=== PATIENT | female | born 1950 | race Caucasian/White ===

== ENCOUNTER 2022-01-11 15:05 | Inpatient (IN) | payer MEDICAID, MEDICARE ==
[~2022-01-11] VITALS: Ht 162.6 cm; Wt 58.0 kg
[2022-01-11] MEDS ORDERED: ACETAMINOPHEN 325 MG TAB PO ONE ×2 (15:30→15:57)
[2022-01-11 16:27] LABS: Basophils # (auto) 0 10 ^3/uL (0-0.2); Basophils % (auto) 0.3 % (0.0-2.0); Eosinophils # (auto) 0.1 10 ^3/uL (0-0.8); Eosinophils % (auto) 0.7 % (0.0-7.0); Hematocrit 38.5 % (36.0-46.0); Hemoglobin 13.1 g/dL (12.2-16.2); Lymphocytes # (auto) 1.1 10 ^3/uL (0.4-5.4); Lymphocytes % (auto) 11.2 % (10.0-50.0); Mean Corpuscular Hemoglobin 29.9 pg (28.0-32.0); Mean Corpuscular Hgb Conc. 34.1 g/dL (32.0-36.0); Mean Corpuscular Volume 87.9 fL (80.0-100.0); Monocytes # (auto) 0.5 10 ^3/uL (0-1.3); Monocytes % (auto) 5.1 % (0.0-12.0); Neutrophils # (auto) 8.2 10 ^3/uL (1.6-8.6); Neutrophils % (auto) 82.7 % (37.0-80.0); Red Blood Cells 4.38 10^6/uL (4.0-5.20); Red Cell Distribution Width 13.5 % (11.8-14.3); White Blood Cell 9.9 10^3/uL (4.4-10.8)
[2022-01-11 16:37] LABS: Albumin 3.6 g/dL (3.4-5.0); Calcium 9.1 mg/dL (8.5-10.1); Potassium 3.5 mmol/L (3.5-5.1)
[2022-01-11 16:40] LABS: BUN/Creatinine Ratio 17.6; Bilirubin, Total 0.3 mg/dL (0.2-1.0)
[2022-01-11] MEDS ORDERED: SODIUM CHLORIDE 0.9% 500 ML IV ONE (17:00)
[2022-01-11 17:17] LABS: INR 1.02 (0.9-1.15); Partial Thromboplastin Time 26.8 sec (23.6-33.0)
[2022-01-11] MEDS ORDERED: ONDANSETRON HCL 4 MG/2 ML VIAL IV ONE (21:30)
[2022-01-11] MEDS ORDERED: MORPHINE SULFATE 4 MG/ML SYR/VIAL IV ONE (21:30)
[2022-01-11] MEDS ORDERED: DEXTROSE (50%) 50ML SYRG IV PRN (22:00)
[2022-01-11] MEDS ORDERED: ONDANSETRON HCL 4 MG/2 ML VIAL IV PRN (22:00)
[2022-01-11] MEDS: ACCU-CHEK COMFORT CURVE STRIP VI SCH (22:00)
[2022-01-11] MEDS: SODIUM CHLOR 0.9% PF (SALINE LOCK) 10ML VIAL/SYR IV SCH (22:00)
[2022-01-11] MEDS ORDERED: DOCUSATE SOD 100 MG CAP PO PRN (22:00)
[2022-01-11] MEDS ORDERED: ACETAMINOPHEN 325 MG TAB PO PRN (22:00)
[2022-01-11] MEDS: InsuLIN REG 1unit/0.01ml Soln (100units/ml) SC SCH (22:55)
[2022-01-11] MEDS: ASCORBIC ACID 500 MG TAB PO SCH (23:00)
[2022-01-11] MEDS ORDERED: NITROGLYCERIN 0.4 MG SL TAB SL PRN (23:00)
[2022-01-11] MEDS ORDERED: MORPHINE SULFATE INJ 2 MG/ml SYRG IV PRN (23:00)
[2022-01-12 00:19] VITALS: BP 153/81
[2022-01-12] MEDS: HYDROcodone-ACET 5/325MG TAB PO PRN (00:57)
[2022-01-12] MEDS: hydrALAZINE HCL 20 MG/ML VL IV PRN (00:57)
[2022-01-12 04:47] VITALS: BP 114/62
[2022-01-12 05:32] LABS: Basophils # (auto) 0 10 ^3/uL (0-0.2); Basophils % (auto) 0.4 % (0.0-2.0); Eosinophils # (auto) 0.2 10 ^3/uL (0-0.8); Eosinophils % (auto) 1.5 % (0.0-7.0); Hematocrit 37.9 % (36.0-46.0); Hemoglobin 12.4 g/dL (12.2-16.2); Lymphocytes # (auto) 1.7 10 ^3/uL (0.4-5.4); Lymphocytes % (auto) 15.5 % (10.0-50.0); Mean Corpuscular Hemoglobin 29.3 pg (28.0-32.0); Mean Corpuscular Hgb Conc. 32.7 g/dL (32.0-36.0); Mean Corpuscular Volume 89.4 fL (80.0-100.0); Monocytes # (auto) 1.1 10 ^3/uL (0-1.3); Monocytes % (auto) 9.6 % (0.0-12.0); Red Blood Cells 4.24 10^6/uL (4.0-5.20); Red Cell Distribution Width 13.4 % (11.8-14.3)
[2022-01-12 05:49] LABS: Albumin 3.1 g/dL (3.4-5.0); Calcium 8.5 mg/dL (8.5-10.1); Potassium 3.4 mmol/L (3.5-5.1)
[2022-01-12 05:55] LABS: BUN/Creatinine Ratio 16.7; Bilirubin, Total 0.3 mg/dL (0.2-1.0); Total Protein 6.1 g/dL (6.4-8.2)
[2022-01-12] MEDS: ACCU-CHEK COMFORT CURVE STRIP VI SCH ×4 (06:36→21:43)
[2022-01-12] MEDS: InsuLIN REG 1unit/0.01ml Soln (100units/ml) SC SCH ×4 (06:37→22:09)
[2022-01-12] MEDS: MORPHINE SULFATE INJ 2 MG/ml SYRG IV PRN ×3 (06:39→17:49)
[2022-01-12] MEDS ORDERED: POTASSIUM CHL 20MEQ/100ML 100 ML IV ONE (07:00)
[2022-01-12 08:52] VITALS: BP 126/61
[2022-01-12] MEDS ORDERED: FAMOTIDINE (10MG/ML) 2ML VL IV SCH (10:00)
[2022-01-12] MEDS: ASCORBIC ACID 500 MG TAB PO SCH ×2 (10:19→21:43)
[2022-01-12] MEDS: ZINC SULFATE 220mg CAP or TAB PO SCH (10:19)
[2022-01-12] MEDS: MULTIPLE VITAMIN TAB PO SCH (10:19)
[2022-01-12] MEDS: ENOXAPARIN SOD 40 MG/0.4 ML SYRINGE SC SCH (10:20)
[2022-01-12] MEDS ORDERED: PANTOPRAZOLE 40 MG/10 ML VIAL INJ IV ONE (12:15)
[2022-01-12 12:49] VITALS: BP 153/77
[2022-01-12 16:54] VITALS: BP 154/60
[2022-01-12] MEDS ORDERED: TOPI25TA84 PO (20:16)
[2022-01-12] MEDS ORDERED: METF-869 PO (20:16)
[2022-01-12] MEDS ORDERED: RIVA1CAP PO (20:16)
[2022-01-12] MEDS ORDERED: MEMA1TAB5 PO (20:16)
[2022-01-12] MEDS ORDERED: VENL-222 PO (20:16)
[2022-01-12] MEDS ORDERED: OMEP-260 PO (20:16)
[2022-01-12] MEDS: SODIUM CHLOR 0.9% PF (SALINE LOCK) 10ML VIAL/SYR IV SCH (21:41)
[2022-01-12 22:00] VITALS: BP 107/68
[2022-01-13 05:00] VITALS: BP 180/77
[2022-01-13] MEDS: SODIUM CHLOR 0.9% PF (SALINE LOCK) 10ML VIAL/SYR IV SCH ×3 (05:51→21:09)
[2022-01-13] MEDS: hydrALAZINE HCL 20 MG/ML VL IV PRN ×2 (05:51→21:49)
[2022-01-13] MEDS: ACCU-CHEK COMFORT CURVE STRIP VI SCH ×4 (05:56→21:09)
[2022-01-13] MEDS: InsuLIN REG 1unit/0.01ml Soln (100units/ml) SC SCH ×4 (05:57→21:12)
[2022-01-13] MEDS ORDERED: ceFAZolin 1GM/50ML 100 ML IV ONE (07:07)
[2022-01-13] MEDS ORDERED: BUPIVACAINE HCL 50 ML ONE (07:20)
[2022-01-13] MEDS ORDERED: MIDAZOLAM HCL 2MG/2ML 2ml VIAL (1mg/ml) ONE (07:27)
[2022-01-13] MEDS ORDERED: MEPERIDINE HCL (50 MG/ML) 1 ML VIAL ONE (07:27)
[2022-01-13] MEDS ORDERED: fentaNYL CITRATE 100 MCG/2 ML VL ONE (07:27)
[2022-01-13] MEDS ORDERED: ONDANSETRON HCL 4 MG/2 ML VIAL IV ONE (07:30)
[2022-01-13] MEDS ORDERED: DexAMETHasone SOD PHOS 10MG/1ML VIAL INJ ONE (08:28)
[2022-01-13] MEDS ORDERED: PROPOFOL 10 MG/ML 20 ML IV ONE (08:28)
[2022-01-13] MEDS: LABETALOL HCL 5 MG/ML 4ML SYRINGE IV ONE ×2 (08:30→08:50)
[2022-01-13] MEDS ORDERED: ONDANSETRON HCL 4 MG/2 ML VIAL IV PRN (09:15)
[2022-01-13] MEDS ORDERED: MORPHINE SULFATE 4 MG/ML SYR/VIAL IV PRN (09:15)
[2022-01-13] MEDS ORDERED: HYDROmorphone HCL 2 MG/ML VL/or syr IV PRN (09:15)
[2022-01-13] MEDS ORDERED: ACCU-CHEK COMFORT CURVE STRIP VI ONE (09:15)
[2022-01-13] MEDS ORDERED: ePHEDrine SULFATE 50 MG/ML AMP IV PRN (09:15)
[2022-01-13] MEDS ORDERED: LABETALOL HCL 5 MG/ML 4ML SYRINGE IV PRN ×2 (09:15→09:45)
[2022-01-13] MEDS ORDERED: MIDAZOLAM HCL 2MG/2ML 2ml VIAL (1mg/ml) IV PRN (09:15)
[2022-01-13] MEDS: ZINC SULFATE 220mg CAP or TAB PO SCH (10:00)
[2022-01-13] MEDS: RIVASTIGMINE 1.5 MG PO SCH ×2 (10:00→21:09)
[2022-01-13] MEDS: ASCORBIC ACID 500 MG TAB PO SCH ×2 (10:00→21:09)
[2022-01-13] MEDS: VENLAFAXINE 150 MG PO SCH (10:00)
[2022-01-13] MEDS: TOPIRAMATE 25 MG TAB PO SCH ×2 (10:00→21:09)
[2022-01-13] MEDS: MULTIPLE VITAMIN TAB PO SCH (10:00)
[2022-01-13] MEDS: MEMANTINE HCL 5 MG TAB PO SCH (10:00)
[2022-01-13] MEDS: PANTOPRAZOLE 40 MG/10 ML VIAL INJ IV SCH (11:59)
[2022-01-13] MEDS: ENOXAPARIN SOD 40 MG/0.4 ML SYRINGE SC SCH (11:59)
[2022-01-13] MEDS: ceFAZolin 1GM/50ML 50 ML IV SCH ×3 (12:26→23:47)
[2022-01-13 13:00] VITALS: BP 162/74
[2022-01-13 16:58] VITALS: BP 174/80
[2022-01-13] MEDS: MORPHINE SULFATE INJ 2 MG/ml SYRG IV PRN (17:50)
[2022-01-13 22:36] VITALS: BP 162/73
[2022-01-14 05:00] VITALS: BP 163/63
[2022-01-14] MEDS: SODIUM CHLOR 0.9% PF (SALINE LOCK) 10ML VIAL/SYR IV SCH ×3 (06:04→21:59)
[2022-01-14] MEDS: ACCU-CHEK COMFORT CURVE STRIP VI SCH ×4 (06:04→22:00)
[2022-01-14] MEDS: InsuLIN REG 1unit/0.01ml Soln (100units/ml) SC SCH ×4 (06:07→21:57)
[2022-01-14] MEDS: hydrALAZINE HCL 20 MG/ML VL IV PRN (06:10)
[2022-01-14 07:27] LABS: Basophils # (auto) 0 10 ^3/uL (0-0.2); Basophils % (auto) 0.2 % (0.0-2.0); Eosinophils # (auto) 0 10 ^3/uL (0-0.8); Eosinophils % (auto) 0.1 % (0.0-7.0); Hemoglobin 12.8 g/dL (12.2-16.2); Lymphocytes # (auto) 1.3 10 ^3/uL (0.4-5.4); Mean Corpuscular Hemoglobin 29.6 pg (28.0-32.0); Mean Corpuscular Hgb Conc. 33.8 g/dL (32.0-36.0); Mean Corpuscular Volume 87.6 fL (80.0-100.0); Monocytes # (auto) 1.2 10 ^3/uL (0-1.3); Monocytes % (auto) 8.7 % (0.0-12.0); Neutrophils # (auto) 11.8 10 ^3/uL (1.6-8.6); Red Blood Cells 4.34 10^6/uL (4.0-5.20); Red Cell Distribution Width 13.3 % (11.8-14.3)
[2022-01-14 07:54] LABS: White Blood Cell 14.4 10^3/uL (4.4-10.8)
[2022-01-14 09:00] VITALS: BP 139/63
[2022-01-14] MEDS: PANTOPRAZOLE 40 MG/10 ML VIAL INJ IV SCH (11:46)
[2022-01-14] MEDS: VENLAFAXINE 150 MG PO SCH (11:46)
[2022-01-14] MEDS: RIVASTIGMINE 1.5 MG PO SCH ×2 (11:46→21:58)
[2022-01-14] MEDS: TOPIRAMATE 25 MG TAB PO SCH ×2 (11:47→21:59)
[2022-01-14] MEDS: ZINC SULFATE 220mg CAP or TAB PO SCH (11:47)
[2022-01-14] MEDS: MEMANTINE HCL 5 MG TAB PO SCH (11:47)
[2022-01-14] MEDS: MULTIPLE VITAMIN TAB PO SCH (11:47)
[2022-01-14] MEDS: ENOXAPARIN SOD 40 MG/0.4 ML SYRINGE SC SCH (11:48)
[2022-01-14] MEDS: ASCORBIC ACID 500 MG TAB PO SCH ×2 (11:48→21:59)
[2022-01-14] MEDS: HYDROcodone-ACET 5/325MG TAB PO PRN ×2 (11:49→18:25)
[2022-01-14 13:12] VITALS: BP 152/88
[2022-01-14 17:00] VITALS: BP 179/62
[2022-01-14 22:00] VITALS: BP 136/72
[2022-01-15 05:00] VITALS: BP 127/71
[2022-01-15] MEDS: SODIUM CHLOR 0.9% PF (SALINE LOCK) 10ML VIAL/SYR IV SCH ×2 (06:26→16:04)
[2022-01-15] MEDS: ACCU-CHEK COMFORT CURVE STRIP VI SCH ×3 (06:27→18:08)
[2022-01-15] MEDS: InsuLIN REG 1unit/0.01ml Soln (100units/ml) SC SCH ×3 (06:29→17:00)
[2022-01-15 09:00] VITALS: BP 138/67
[2022-01-15] MEDS: VENLAFAXINE 150 MG PO SCH (09:20)
[2022-01-15] MEDS: RIVASTIGMINE 1.5 MG PO SCH (09:21)
[2022-01-15] MEDS: MULTIPLE VITAMIN TAB PO SCH (09:23)
[2022-01-15] MEDS: TOPIRAMATE 25 MG TAB PO SCH (09:23)
[2022-01-15] MEDS: ASCORBIC ACID 500 MG TAB PO SCH (09:24)
[2022-01-15] MEDS: MEMANTINE HCL 5 MG TAB PO SCH (09:24)
[2022-01-15] MEDS: ENOXAPARIN SOD 40 MG/0.4 ML SYRINGE SC SCH (09:24)
[2022-01-15] MEDS: PANTOPRAZOLE 40 MG/10 ML VIAL INJ IV SCH (09:24)
[2022-01-15] MEDS: ZINC SULFATE 220mg CAP or TAB PO SCH (09:24)
[2022-01-15 13:00] VITALS: BP 124/67
[2022-01-15 17:20] VITALS: BP 133/72
[2022-01-15 18:19] VITALS: BP 124/67
== END 2022-01-15 20:37 | disposition home health service (06) | DRG 512 ==
LOC: ER 15:05 → OVERFLOW 22:50 → CENTRAL 23:41
PROVIDERS: ADMIT Nurse Practitioner Family; ATTEND Internal Medicine
PROC: BP1 Imaging, Non-Axial Upper Bones, Fluoroscopy (ICD-10-PCS; 2022-01-13)
PROC: 0PSH04Z Reposition Right Radius with Internal Fixation Device, Open Approach (ICD-10-PCS; principal; 2022-01-13 07:26)
DX: S52.571A Other intraarticular fracture of lower end of right radius, initial encounter for closed fracture (principal); S09.90XA Unspecified injury of head, initial encounter; E87.6 Hypokalemia; F02.80 Dementia in other diseases classified elsewhere, unspecified severity, without behavioral disturbance, psychotic disturbance, mood disturbance, and anxiety; G30.9 Alzheimer's disease, unspecified; I10 Essential (primary) hypertension; K21.9 Gastro-esophageal reflux disease without esophagitis; F32.A Depression, unspecified; R29.6 Repeated falls; G20 Parkinson's disease; Z20.822 Contact with and (suspected) exposure to COVID-19; F41.9 Anxiety disorder, unspecified; F32.9 Major depressive disorder, single episode, unspecified; W18.39XA Other fall on same level, initial encounter; Y93.89 Activity, other specified; Z90.49 Acquired absence of other specified parts of digestive tract; Y92.098 Other place in other non-institutional residence as the place of occurrence of the external cause; Z79.84 Long term (current) use of oral hypoglycemic drugs; Z85.41 Personal history of malignant neoplasm of cervix uteri; Z91.81 History of falling; Y99.8 Other external cause status; E11.9 Type 2 diabetes mellitus without complications; Z79.4 Long term (current) use of insulin
CPT/HCPCS: 36415; 70450; 71045; 72125; 73100; 73110; 73200; 76000; 80053; 82962; 83036; 85025; 85610; 85730; 86850; 86900; 86901; 93005; 93306; 96361; 96374; 96375; 97110; 97116; 97163; 97530; C9113; G0378; J0690; J1100; J1815; J2250; J2405; J2704; J3480; J3490

== ENCOUNTER 2024-08-06 07:02 | Inpatient (IN) | payer OTHER ==
[~2024-08-06] VITALS: Ht 162.6 cm; Wt 46.6 kg
[~2024-08-06 07:02] MED LIST: MEMA1TAB5 PO; METF-869 PO; OMEP1CAP70 PO; RIVA1CAP PO; TOPI25TA84 PO; VENL-222 PO
--- NOTE | 2024-08-06 07:53 | ED.PDOC ---
Venturat. trauma (HPI) HPI Comments 74 y.o female with PMH of dementia was BIB spouse today s/p head trauma. Spouse reports around 0530 he head patient hit her head against night stand, noted to have dry blood on the top of her head. Patient arrives alert and oriented x 1, baseline is x 2 per spouse. Patient is bedbound most of the time. Spouse mentions that patient was diagnosed with PreDM, was on Metformin but recently taken off it by PCP, now presents with BG of 594 x 2 reads in triage. Patient has additional medical history of migraines and HDL with medication given by spouse. Chief Complaint: Fall Injury Time Seen by MD: 07:22 Primary Care Provider: АЛЕКСАНДР Reviewed notes: Nurses Notes, Medications, Allergies Allergies: Coded Allergies: NO KNOWN ALLERGIES (Unverified , 11/29/13) Home Meds Reported Medications Metformin Hydrochloride (Metformin Hydrochloride) 500 Mg Tab, 1 TAB PO BID 01/12/22 Omeprazole (Omeprazole Dr) 20 Mg Cap, 1 CAP PO DAILY 01/12/22 Topiramate (Topiramate) 25 Mg Tab, 2 TAB PO BID 01/12/22 Venlafaxine Hydrochloride (Venlafaxine Hydrochloride) 150 Mg Cap, 1 CAP PO DAILY 01/12/22 Memantine Hydrochloride (Memantine HCl) 10 Mg Tab, 1 TAB PO DAILY 01/12/22 Rivastigmine Tartrate (Rivastigmine Tartrate) 1.5 Mg Cap, 1 CAP PO BID 01/12/22 Information Source: Spouse Mode of Arrival: Wheelchair Severity: Moderate Timing: Hours Duration: Since onset Location of laceration: Head Mechanism: Other Associated signs and symtoms: Other Past Medical History PAST MEDICAL HISTORY: Dementia, Depression Surgical History: Cholecystectomy [employer] History: Denies all [employer] Hx Family History Family History: Reviewed,noncontributory to illness Social History Smoker: Non-Smoker Alcohol: Denies ETOH Use Drugs: Denies Drug Use Lives In: Home Integumetry: reports: laceration Unable to Obtain due to: Dementia Physical Exam General Appearance: Moderate Distress, Thin, Other (Altered level of consciousness patient with dementia) HEENT: Normal ENT Inspection, PERRL/EOMI Neck: Limited Range of Motion, Other (Patient holds her neck in flex lateral position) Respiratory: Chest Non-Tender, Lungs Clear, No Accessory Muscle Use, No Respiratory Distress, Normal Breath Sounds Cardiovascular: No Edema, No JVD, No Murmur, No Gallop, Normal Peripheral Pulses, Regular Rate/Rhythm Breast Exam: Deferred Gastrointestinal: No Organomegaly, Non Tender, No Pulsatile Mass, Normal Bowel Sounds, Soft Genitalia: Deferred Pelvic: Deferred Rectal: Deferred Extremities: Decreased range of motion, No pedal edema Neurologic: Depressed Affect, Disoriented, Motor Weakness, Speech Problem, Other (Patient with altered consciousness) Cerebellar Function: Unable to Test Reflexes: NOT DONE Skin: Dry, Normal Color, Warm, Other (Scalp abrasions) Peripheral Pulses: 1+ carotid (R), 1+ carotid (L) Lymphatic: No Adenopathy Was a procedure done? Was a procedure done?: No EKG EKG : Pulse Rate (adult): 104 [place]: RAD Cardiac Rhythm: NSR Block: RBBB Differential Diagnosis Multiple Trauma: Closed Head Injury, Fractures, Abrasions, Contusion, Hematoma, Other (Late stage dementia DKA dehydration altered level of consciousness CVA sepsis) Neck Injury: Cervical Muscle Spasm X-Ray, Labs, Meds, VS Vital Signs Date Time Temp Pulse Resp B/P (MAP) Pulse Ox O2 Delivery O2 Flow Rate FiO2 08/06/24 12:39 105 16 154/78 (103) 95 08/06/24 10:00 98.6 107 16 144/84 (104) 95 98.6 08/06/24 07:26 98.7 111 20 137/66 (89) 96 Lab Test 08/06/24 09:14 08/06/24 08:00 Range/Units Urine Color Light-yellow Yellow Urine Clarity Clear Clear Urine pH 5.0 5.0-9.0 Urine Specific [place] 1.032 1.001-1.035 Urine Protein Trace H Negative Urine Ketones 2+ H Negative Urine Blood Trace H Negative /uL Urine Nitrite Negative Negative Urine Bilirubin Negative Negative Urine Urobilinogen Normal Negative mg/dL Urine Leukocyte Esterase Negative Negative /uL Urine RBC 4 0 - 4 /hpf Urine WBC 2 0 - 5 /hpf Urine Squamous Epithelial Cells Few <5 /hpf Urine Bacteria Few H None Seen /hpf Urine Hyaline Casts Few 0 - 2 /lpf Urine Mucus Few None Seen Urine Glucose 4+ H Normal mg/dL White Blood Count 22.6 H 4.4-10.8 10^3/uL Red Blood Count 5.26 H 4.0-5.20 10^6/uL Hemoglobin 15.5 12.2-16.2 g/dL Hematocrit 50.0 H 36.0-46.0 % Mean Corpuscular Volume 95.1 80.0-100.0 fL Mean Corpuscular Hemoglobin 29.5 28.0-32.0 pg Mean Corpuscular Hemoglobin Concent 31.0 L 32.0-36.0 g/dL Red Cell Distribution Width 15.6 H 11.8-14.3 % Platelet Count 305 140-450 10^3/uL Mean Platelet Volume 11.3 H 6.9-10.8 fL Neutrophils (%) (Auto) 88.6 H 37.0-80.0 % Lymphocytes (%) (Auto) 6.7 L 10.0-50.0 % Monocytes (%) (Auto) 4.5 0.0-12.0 % Eosinophils (%) (Auto) 0.0 0.0-7.0 % Basophils (%) (Auto) 0.2 0.0-2.0 % Neutrophils # (Auto) 20.0 H 1.6-8.6 10 ^3/uL Lymphocytes # (Auto) 1.5 0.4-5.4 10 ^3/uL Monocytes # (Auto) 1.0 0-1.3 10 ^3/uL Eosinophils # (Auto) 0 0-0.8 10 ^3/uL Basophils # (Auto) 0 0-0.2 10 ^3/uL Nucleated Red Blood Cells 0.0 % Sodium Level 152 H 136-145 mmol/L Potassium Level 4.9 3.5-5.1 mmol/L Chloride Level 114 H 98-107 mmol/L Carbon Dioxide Level 16 L 20-31 mmol/L Anion Gap 22 H 5-15 Blood Urea Nitrogen 57 H 9-23 mg/dL Creatinine 2.13 H 0.550-1.02 mg/dL Glomerular Filtration Rate Calc 24 >90 mL/min BUN/Creatinine Ratio 26.8 H 10.0-20.0 Serum Glucose 780 *H 74-106 mg/dL Calcium Level 10.6 H 8.7-10.4 mg/dL Magnesium Level 2.6 1.6-2.6 mg/dL Total Bilirubin 0.4 0.2-1.0 mg/dL Aspartate Amino Transferase (AST) 1063 H 13-40 U/L Alanine Aminotransferase (ALT) 979 H 7-40 U/L Alkaline Phosphatase 187 H 46-116 U/L Troponin I High Sensitivity 31 </=34 ng/L Total Protein 7.2 5.7-8.2 g/dL Albumin 4.5 3.2-4.8 g/dL Current Medications Medications (Trade) Dose Ordered Sig/Dalton Route Start Time Stop Time Status Last Admin Sodium Chloride 1,000 ml @ 1,000 mls/hr Q1H ONCE IVB 08/06/24 07:45 08/06/24 08:44 DC 08/06/24 08:00 Insulin Human Regular (InsuLIN R) 10 units ONCE ONCE IV 08/06/24 12:30 08/06/24 12:34 DC 08/06/24 12:52 Sodium Chloride 1,000 ml @ 500 mls/hr Q2H IV 08/06/24 12:30 08/06/24 16:29 08/06/24 13:08 Insulin Human (Reg)/Sodium Chloride 100 ml @ 0.5 mls/hr Q24H IV 08/06/24 12:30 08/06/24 13:06 Insulin Glargine (Lantus) 15 units ONCE ONCE SC 08/06/24 12:30 08/06/24 12:34 DC 08/06/24 12:53 EXAM: CT HEAD WITHOUT CONTRAST INDICATION: fall TECHNIQUE: CT of the head without intravenous contrast. Coronal and sagittal reformatted images are submitted. Radiation Dose : 1. Head: CT Dose: CTDI volume is 51.53 mGy. Dose-length product is 723.18 mGy*cm COMPARISON: HEAD WITHOUT CONTRAST on DOS: 01/11/22 FINDINGS: There is no evidence of acute intracranial hemorrhage, extra-axial collection, mass effect, midline shift. There is ventriculomegaly. Age-appropriate volume loss. There are periventricular and subcortical hypodensities, nonspecific, but likely reflecting sequelae of chronic microvascular ischemic changes. The majano-white differentiation is intact. The mastoid air cells are clear. Opacification of the right frontal sinus. No depressed calvarial fracture. Left frontal scalp swelling. IMPRESSION: 1. No evidence of acute intracranial abnormality. 2. Left frontal scalp swelling. 3. Ventriculomegaly, which may be related to volume loss. A component of communicating hydrocephalus not excluded. : CT CERVICAL WITHOUT CONTRAST INDICATION: fall EXAM DATE: 08/06/2024 08:13 AM COMPARISON: CT HEAD WITHOUT CONTRAST on DOS: 08/06/24, CERVICAL WITHOUT CONTRAST on DOS: 01/11/22 TECHNIQUE: Multiple axial CT images of the cervical spine were obtained using bone algorithm. Sagittal and coronal reformatting was done. Bone and soft tissue windows were reviewed. Radiation Dose Information: CT Dose: CTDI volume is 8.9 mGy. Dose-length product is 183.06 mGy*cm FINDINGS: The cervical alignment is intact. No acute cervical spine fracture is identified. The vertebral body heights are intact. No suspicious osseous lesions are identified. Multilevel intervertebral disc space narrowing. No significant spinal stenosis. Multilevel neural foraminal stenosis. There is no prevertebral soft tissue swelling. Lung apices are clear. IMPRESSION: 1. No evidence of acute cervical spine fracture or traumatic malalignment. XY CHEST PORTABLE, HISTORY: aloc COMPARISON: CXRP on DOS: 01/12/22, CHEST PORTABLE on DOS: 01/12/22 CXRP on DOS: 01/12/22, CHEST PORTABLE on DOS: 01/12/22 TECHNICAL DATA: 1 view of the chest was obtained. FINDINGS: Lines and tubes: None Cardiomediastinal silhouette: normal Pulmonary vasculature: normal Lung expansion: normal Lung airspace: normal Lung interstitium: normal Pleura: normal Pneumothorax: no Bones: Unremarkable Other: no IMPRESSION: No acute intrathoracic abnormality. X-Ray, Labs, Meds, VS Comment Course in the emergency department eventful patient came in because of a fall and also she has end-stage dementia and generalized weakness Patient fell today and scalp abrasions AICD she needs CT head negative CT C-spine negative frontal scalp small hematoma Troponin 31 CBC 13675 with 88.6% neutrophils H&H 15 and 50 CMP shows some liver failure with a extremely elevated liver enzymes Urine pending Parnell catheter has been called Magnesium 2.6 Blood sugar 780 CO2 16 G FR 24 Patient will be admitted to ICU Time of 1ST Reevaluation: 07:48 Reevaluation 1ST: Unchanged Time of 2ND Reevaluation: 12:36 Reevaluation 2ND: Unchanged Patient Education/Counseling: Diagnosis, Treatment, Prognosis, Other Family Education/Counseling: Diagnosis, Treatment, Prognosis, Other ( at bed side ) Departure 1 Departure Time of Disposition: 12:41 Impression: Primary Impression: Fall at home Qualified Codes: W19.XXXA - Unspecified fall, initial encounter; Y92.009 - Unspecified place in unspecified non-institutional (private) residence as the place of occurrence of the external cause Additional Impressions: Scalp abrasion Qualified Codes: S00.01XA - Abrasion of scalp, initial encounter Late onset Alzheimer's dementia without behavioral disturbance DKA, type 2 Qualified Codes: E11.10 - Type 2 diabetes mellitus with ketoacidosis without coma Sepsis Hepatorenal failure Disposition: ADMITTED INPATIENT Admit to: ICU Condition: Critical Critical Care Note Critical Care Time?: Yes (45 min-critical care time only) Stability Stability form required: Yes Unstable for transfer: ICU, CCU, PCU, JOSE (Intensive VS monitoring), Requires medication (Requires Med for stabilization) Heart Score Heart Score: Heart Score Response (Comments) Value History Moderate Suspicious 1 EKG Repolarization Disturb 1 Age >65 2 Risk Factors >3 or Hx ASHD 2 Troponin Normal limit 0 Total 6 I personally scribed for GERALD DUNAWAY MD ([email or web address]) on 08/06/24 at 07:53. Electronically submitted by Jennifer Bobo ([employer] [place]). I personally scribed for GERALD DUNAWAY MD ([email or web address]) on 08/06/24 at 08:50. Electronically submitted by Jennifer Bobo ([employer] [place]). GERALD DUNAWAY MD Aug 06, 2024 07:53
[2024-08-06] MEDS: SODIUM CHLORIDE 0.9% 1,000 ML IVB ONE (08:00)
--- NOTE | 2024-08-06 08:37 | DVH ---
EXAM: CT HEAD WITHOUT CONTRAST INDICATION: fall TECHNIQUE: CT of the head without intravenous contrast. Coronal and sagittal reformatted images are submitted. Radiation Dose : 1. Head: CT Dose: CTDI volume is 51.53 mGy. Dose-length product is 723.18 mGy*cm The dose indicators for CT are the volume Computed Tomography (CT) Dose Index (CTDIvol) and the Dose Length Product (DLP), and are measured in units of mGy and mGy-cm, respectively. These indicators are not patient dose, but values generated from the CT scanner acquisition factors. The report includes radiation exposure data for exposures received during this examination. All CT scans at this medical facility are performed using dose modulation techniques as appropriate to a performed exam including the following: Automated exposure control was utilized; adjustment of the MA and/or KV according to patient size; and use of iterative reconstruction technique. COMPARISON: HEAD WITHOUT CONTRAST on DOS: 01/11/22 FINDINGS: There is no evidence of acute intracranial hemorrhage, extra-axial collection, mass effect, midline s hift. There is ventriculomegaly. Age-appropriate volume loss. There are periventricular and subcortical hypodensities, nonspecific, but likely reflecting sequelae of chronic microvascular ischemic changes. The majano-white differentiation is intact. The mastoid air cells are clear. Opacification of the right frontal sinus. No depressed calvarial fracture. Left frontal scalp swelling. IMPRESSION: 1. No evidence of acute intracranial abnormality. 2. Left frontal scalp swelling. 3. Ventriculomegaly, which may be related to volume loss. A component of communicating hydrocephalus not excluded.
[2024-08-06 08:39] LABS: Basophils # (auto) 0 10 ^3/uL (0-0.2); Basophils % (auto) 0.2 % (0.0-2.0); Eosinophils # (auto) 0 10 ^3/uL (0-0.8); Hemoglobin 15.5 g/dL (12.2-16.2); Lymphocytes # (auto) 1.5 10 ^3/uL (0.4-5.4); Lymphocytes % (auto) 6.7 % (10.0-50.0); Mean Corpuscular Hemoglobin 29.5 pg (28.0-32.0); Mean Corpuscular Volume 95.1 fL (80.0-100.0); Monocytes % (auto) 4.5 % (0.0-12.0); Neutrophils % (auto) 88.6 % (37.0-80.0); Platelet Count (auto) 305 10^3/uL (140-450); Red Blood Cells 5.26 10^6/uL (4.0-5.20); Red Cell Distribution Width 15.6 % (11.8-14.3); White Blood Cell 22.6 10^3/uL (4.4-10.8)
--- NOTE | 2024-08-06 08:39 | DVH ---
XY CHEST PORTABLE, HISTORY: aloc COMPARISON: CXRP on DOS: 01/12/22, CHEST PORTABLE on DOS: 01/12/22 CXRP on DOS: 01/12/22, CHEST PORTABLE on DOS: 01/12/22 TECHNICAL DATA: 1 view of the chest was obtained. FINDINGS: Lines and tubes: None Cardiomediastinal silhouette: normal Pulmonary vasculature: normal Lung expansion: normal Lung airspace: normal Lung interstitium: normal Pleura: normal Pneumothorax: no Bones: Unremarkable Other: no IMPRESSION: No acute intrathoracic abnormality.
--- NOTE | 2024-08-06 08:41 | DVH ---
EXAM: CT CERVICAL WITHOUT CONTRAST INDICATION: fall EXAM DATE: 08/06/2024 08:13 AM COMPARISON: CT HEAD WITHOUT CONTRAST on DOS: 08/06/24, CERVICAL WITHOUT CONTRAST on DOS: 01/11/22 TECHNIQUE: Multiple axial CT images of the cervical spine were obtained using bone algorithm. Sagitta l and coronal reformatting was done. Bone and soft tissue windows were reviewed. Radiation Dose Information: CT Dose: CTDI volume is 8.9 mGy. Dose-length product is 183.06 mGy*cm FINDINGS: The cervical alignment is intact. No acute cervical spine fracture is identified. The vertebral body heights are intact. No suspicious osseous lesions are identified. Multilevel intervertebral disc space narrowing. No significant spinal stenosis. Multilevel neural fo raminal stenosis. There is no prevertebral soft tissue swelling. Lung apices are clear. IMPRESSION: 1. No evidence of acute cervical spine fracture or traumatic malalignment. All CT scans at this medical facility are performed using dose modulation techniques as appropriate t o a performed exam including the following: Automated exposure control was utilized; adjustment of th e MA and/or KV according to patient size; and use of iterative reconstruction technique.
[2024-08-06 08:44] LABS: Albumin 4.5 g/dL (3.2-4.8); Anion Gap 22 (5-15); BUN/Creatinine Ratio 26.8 (10.0-20.0); Bilirubin, Total 0.4 mg/dL (0.2-1.0); Magnesium 2.6 mg/dL (1.6-2.6); Potassium 4.9 mmol/L (3.5-5.1); Total Protein 7.2 g/dL (5.7-8.2)
[2024-08-06 08:46] LABS: Alanine Aminotransferase 979 U/L (7-40); Alkaline Phosphatase 187 U/L (46-116); Blood Urea Nitrogen 57 mg/dL (9-23); Calcium 10.6 mg/dL (8.7-10.4); Carbon Dioxide 16 mmol/L (20-31); Chloride 114 mmol/L (98-107); Sodium 152 mmol/L (136-145)
[2024-08-06 09:08] LABS: Glucose 780 mg/dL (74-106)
[2024-08-06 09:10] LABS: Aspartate Aminotransferase 1063 U/L (13-40)
[2024-08-06] MEDS ORDERED: DEXTROSE (50%) 50ML SYRG IV PRN (12:30)
[2024-08-06] MEDS: InsuLIN REG 1unit/0.01ml Soln (100units/ml) IV ONE (12:52)
[2024-08-06] MEDS: INSULIN LANTUS (GLARGINE) 1 /0.01ml (100units/ml) SC ONE (12:53)
[2024-08-06 13:00] LABS: Urine Bacteria FEW /hpf (None Seen); Urine Blood TRACE /uL (Negative); Urine Clarity Clear (Clear); Urine Color Light-Yellow (Yellow); Urine Hyaline Cast FEW /lpf (0 - 2); Urine Mucus FEW (None Seen); Urine Protein, UAD TRACE (Negative); Urine Specific Gravity 1.032 (1.001-1.035); Urine Squamous Epithelial Cell FEW /hpf (<5); Urine Urobilinogen Normal (Negative); Urine WBC 2 /hpf (0 - 5)
[2024-08-06] MEDS: INSULIN DRIP 100 UNIT/100ML 100 ML IV SCH (13:06)
[2024-08-06] MEDS: SODIUM CHLORIDE 0.9% 1,000 ML IV SCH ×3 (13:08→19:00)
[2024-08-06 13:23] VITALS: PULSE 105; RESP 16; O2SAT 95
[2024-08-06] MEDS ORDERED: ONDANSETRON HCL 4 MG/2 ML VIAL IV PRN (13:30)
[2024-08-06] MEDS ORDERED: ACETAMINOPHEN 325 MG TAB PO PRN (13:30)
[2024-08-06] MEDS: cefTRIAXone 1GM/50ML D5W 50 ML IV ONE (13:30)
[2024-08-06] MEDS: ACCU-CHEK COMFORT CURVE STRIP VI SCH (13:30)
[2024-08-06 13:33] LABS: Hematocrit 45.1 % (36.0-46.0); Mean Corpuscular Hemoglobin 29.4 pg (28.0-32.0); Mean Corpuscular Hgb Conc. 31.1 g/dL (32.0-36.0); Mean Corpuscular Volume 94.6 fL (80.0-100.0); Platelet Count (auto) 257 10^3/uL (140-450); Red Blood Cells 4.77 10^6/uL (4.0-5.20); Red Cell Distribution Width 15.4 % (11.8-14.3); White Blood Cell 18.3 10^3/uL (4.4-10.8)
[2024-08-06] MEDS ORDERED: ATOR10TA52 PO (13:34)
[2024-08-06 13:38] LABS: Base Excess -10.8 mmol/L (-2.0-3.0)
[2024-08-06 13:40] LABS: Band Neutrophils % (manual) 0; Basophils % (manual) 0 (0.0-2.0); Blast Cells 0; Eosinophils % (manual) 0 (0-7); Metamyelocytes % 0; Myelocytes % 0; Promyelocytes % 0; Reactive Lymphocytes 0
--- NOTE | 2024-08-06 13:48 | DVHHP2 ---
History of Present Illness Reason for Visit: s/p fall History of Present Illness Barbara Vilchis is a 74YO F with pmHx of DM, Dementia, depression, cholecystectomy, and right wrist surgery who presents to the ED s/p fall x 1 day. Patient's spouse reported that the patient turned to her side fell and hit her head on the night stand. Patient's spouse reports that she was able to walk with assist but has progressively gotten weaker and now needs total care and is bedbound. Patient's spouse also reports she was mumbling words before but didn't make any sense, now she's nonverbal. He also reports that she is unable to swallow her food now which occurred just recently. [employer]: Dementia Psych: Depression Endocrine: Diabetes Past Surgical History: Cholecystectomy, Other (right hand surgery for fx per ) Smoke: No ALCOHOL: none Drugs: None Lives: with Family Domestic Violence: Neg Review of Systems Allergies: Coded Allergies: NO KNOWN ALLERGIES (Unverified , 11/29/13) Medications Current Medications Medications Dose Ordered Sig/Dalton Route Start Time Stop Time Status Last Admin Dose Admin Sodium Chloride 1,000 ml @ 500 mls/hr Q2H IV 08/06/24 12:30 08/06/24 16:29 08/06/24 13:08 500 MLS/HR Sodium Chloride 1,000 ml @ 250 mls/hr Q4H IV 08/06/24 16:30 08/06/24 18:29 Sodium Chloride 1,000 ml @ 150 mls/hr Q6H40M IV 08/06/24 18:30 Insulin Human (Reg)/Sodium Chloride 100 ml @ 0.5 mls/hr Q24H IV 08/06/24 12:30 08/06/24 13:06 0.5 MLS/HR Dextrose 50 ml UD PRN IV 08/06/24 12:30 Diagnostic Test (Pha) 1 strip Q90MIN 08/06/24 13:30 Exam Vital Signs Vital Signs Date Time Temp Pulse Resp B/P (MAP) Pulse Ox O2 Delivery O2 Flow Rate FiO2 08/06/24 13:23 105 16 95 Room Air* 0 21 08/06/24 12:39 154/78 (103) 08/06/24 10:00 98.6 98.6 General Appearance: No acute distress HEENT: Mucous membr. moist/pink Respiratory: Clear to auscultation, Normal air movement Cardiovascular: Normal S1, Normal S2, No murmurs Abdominal: Soft Extremities: No clubbing, No cyanosis, No edema, Normal pulses, No tenderness/swelling Skin: No significant lesion Neuro: Other (a/o x 1 nonverbal) Labs/Xrays Labs Test 08/06/24 13:03 08/06/24 09:14 08/06/24 08:00 Range/Units Urine Color Light-yellow Yellow Urine Clarity Clear Clear Urine pH 5.0 5.0-9.0 Urine Specific [place] 1.032 1.001-1.035 Urine Protein Trace H Negative Urine Ketones 2+ H Negative Urine Blood Trace H Negative /uL Urine Nitrite Negative Negative Urine Bilirubin Negative Negative Urine Urobilinogen Normal Negative mg/dL Urine Leukocyte Esterase Negative Negative /uL Urine RBC 4 0 - 4 /hpf Urine WBC 2 0 - 5 /hpf Urine Squamous Epithelial Cells Few <5 /hpf Urine Bacteria Few H None Seen /hpf Urine Hyaline Casts Few 0 - 2 /lpf Urine Mucus Few None Seen Urine Glucose 4+ H Normal mg/dL Eosinophils (%) (Auto) 0.0 0.0-7.0 % Eosinophils # (Auto) 0 0-0.8 10 ^3/uL Basophils # (Auto) 0 0-0.2 10 ^3/uL Nucleated Red Blood Cells 0.0 % Total Bilirubin 0.4 0.2-1.0 mg/dL Aspartate Amino Transferase (AST) 1063 H 13-40 U/L Alanine Aminotransferase (ALT) 979 H 7-40 U/L Alkaline Phosphatase 187 H 46-116 U/L Troponin I High Sensitivity 31 </=34 ng/L Total Protein 7.2 5.7-8.2 g/dL Albumin 4.5 3.2-4.8 g/dL EXAM: CT HEAD WITHOUT CONTRAST INDICATION: fall TECHNIQUE: CT of the head without intravenous contrast. Coronal and sagittal reformatted images are submitted. Radiation Dose : 1. Head: CT Dose: CTDI volume is 51.53 mGy. Dose-length product is 723.18 mGy*cm The dose indicators for CT are the volume Computed Tomography (CT) Dose Index (CTDIvol) and the Dose Length Product (DLP), and are measured in units of mGy and mGy-cm, respectively. These indicators are not patient dose, but values generated from the CT scanner acquisition factors. The report includes radiation exposure data for exposures received during this examination. All CT scans at this medical facility are performed using dose modulation techniques as appropriate to a performed exam including the following: Automated exposure control was utilized; adjustment of the MA and/or KV according to patient size; and use of iterative reconstruction technique. COMPARISON: HEAD WITHOUT CONTRAST on DOS: 01/11/22 FINDINGS: There is no evidence of acute intracranial hemorrhage, extra-axial collection, mass effect, midline shift. There is ventriculomegaly. Age-appropriate volume loss. There are periventricular and subcortical hypodensities, nonspecific, but likely reflecting sequelae of chronic microvascular ischemic changes. The majano-white differentiation is intact. The mastoid air cells are clear. Opacification of the right frontal sinus. No depressed calvarial fracture. Left frontal scalp swelling. IMPRESSION: 1. No evidence of acute intracranial abnormality. 2. Left frontal scalp swelling. XY CHEST PORTABLE, HISTORY: aloc COMPARISON: CXRP on DOS: 01/12/22, CHEST PORTABLE on DOS: 01/12/22 CXRP on DOS: 01/12/22, CHEST PORTABLE on DOS: 01/12/22 TECHNICAL DATA: 1 view of the chest was obtained. FINDINGS: Lines and tubes: None Cardiomediastinal silhouette: normal Pulmonary vasculature: normal Lung expansion: normal Lung airspace: normal Lung interstitium: normal Pleura: normal Pneumothorax: no Bones: Unremarkable Other: no IMPRESSION: No acute intrathoracic abnormality. EXAM: CT CERVICAL WITHOUT CONTRAST INDICATION: fall EXAM DATE: 08/06/2024 08:13 AM COMPARISON: CT HEAD WITHOUT CONTRAST on DOS: 08/06/24, CERVICAL WITHOUT CONTRAST on DOS: 01/11/22 TECHNIQUE: Multiple axial CT images of the cervical spine were obtained using bone algorithm. Sagittal and coronal reformatting was done. Bone and soft tissue windows were reviewed. Radiation Dose Information: CT Dose: CTDI volume is 8.9 mGy. Dose-length product is 183.06 mGy*cm FINDINGS: The cervical alignment is intact. No acute cervical spine fracture is identified. The vertebral body heights are intact. No suspicious osseous lesions are identified. Multilevel intervertebral disc space narrowing. No significant spinal stenosis. Multilevel neural foraminal stenosis. There is no prevertebral soft tissue swelling. Lung apices are clear. IMPRESSION: 1. No evidence of acute cervical spine fracture or traumatic malalignment. Assessment/Plan Assessment/Plan Assessment/Plan: DKA with uncontrolled DM Type 2 Leukocytosis 2nd likely to Sepsis proteinura ketonuria mechanical fall Anion gap Insulin drip protocol HgbA1C acetone levels Beta hydroxybutyrate labs ua cxr noted IV Abx - ceftriaxone Lantus senior health educator swallow eval - patient has recent dysphagia issue per spouse trop negative FC ordered by ER phos mag serum osmolality abg with coox ekg noted ct cervical noted ct head noted urine cx blood cx lactic acid Dementia Depression continue home meds FEN/PPX NPO IVf PUD ppx - omeprazole, continue home meds DVT ppx - Lovenox Discussed plan of care with patient and nurse Admit to ICU Home medications reconciled Plan discussed with: Spouse My Orders Orders - MICHELLE ROBLES SAP T[employer]AS[employer]Y CONSULTANT Procedure Category Date Status Time Ceftriaxone 1gm/50ml PHA 08/07/24 Logged D5w (Rocephin) 09:00 Ceftriaxone 1gm/50ml PHA 08/06/24 Logged D5w (Rocephin) 13:30 Basic Metabolic Panel LAB 08/06/24 Logged 14:00 Basic Metabolic Panel LAB 08/06/24 Logged 18:00 Basic Metabolic Panel LAB 08/06/24 Logged 22:00 Basic Metabolic Panel LAB 08/07/24 Verified 02:00 Basic Metabolic Panel LAB 08/07/24 Verified 06:00 Basic Metabolic Panel LAB 08/07/24 Verified 10:00 Basic Metabolic Panel LAB 08/07/24 Verified 14:00 Basic Metabolic Panel LAB 08/07/24 Verified 18:00 Basic Metabolic Panel LAB 08/07/24 Verified 22:00 Basic Metabolic Panel LAB 08/08/24 Verified 02:00 Basic Metabolic Panel LAB 08/08/24 Verified 06:00 Basic Metabolic Panel LAB 08/08/24 Verified 10:00 Basic Metabolic Panel LAB 08/08/24 Verified 14:00 Basic Metabolic Panel LAB 08/08/24 Verified 18:00 Basic Metabolic Panel LAB 08/08/24 Verified 22:00 Admit ADMIT 08/06/24 Transmitted 13:29 Allergies LAMIN 08/06/24 In Process 13:29 Code Status CODE 08/06/24 Transmitted 13:29 Ondansetron Hcl PHA 08/06/24 Logged (Zofran) 13:30 Enoxaparin Sodium PHA 08/07/24 Logged (Lovenox) 10:00 Complete Blood Count LAB 08/07/24 Verified 04:00 Comprehensive LAB 08/07/24 Verified Metabolic Panel 04:00 Npo (Nothing By DIET 08/06/24 Transmitted Mouth) Diet Lunch * Swallow Request ST 08/06/24 Transmitted 13:29 Acetaminophen Tablet PHA 08/06/24 Logged (Tylenol Tablet) 13:30 Hemoglobin A1c LAB 08/06/24 Logged 13:29 * Gi Dvh Long Filler Cigar Roller Machine CONS 08/06/24 Transmitted 13:29 *Rn Cardiac Technician REFER 08/06/24 Transmitted Referral 13:29 Date of Service: Aug 06, 2024 Billing Provider: MICHELLE ROBLES Common Visit Codes: [id number] INP/OBS CARE (HIGH) MICHELLE ROBLES Aug 06, 2024 13:47
[2024-08-06 13:58] LABS: Potassium 4.5 mmol/L (3.5-5.1)
[2024-08-06 13:59] LABS: Anion Gap 20 (5-15)
[2024-08-06 14:00] LABS: Calcium 9.7 mg/dL (8.7-10.4)
[2024-08-06 14:03] LABS: Carbon Dioxide 19 mmol/L (20-31); Chloride 121 mmol/L (98-107); Sodium 160 mmol/L (136-145)
[2024-08-06 14:05] LABS: BUN/Creatinine Ratio 35.2 (10.0-20.0); Magnesium 2.4 mg/dL (1.6-2.6)
[2024-08-06 14:07] LABS: Blood Urea Nitrogen 68 mg/dL (9-23); Phosphorus 4.3 mg/dL (2.4-5.1)
[2024-08-06 14:10] LABS: Glucose 679 mg/dL (74-106)
[2024-08-06 16:07] LABS: Potassium 3.7 mmol/L (3.5-5.1)
[2024-08-06 16:08] LABS: Anion Gap 18 (5-15)
[2024-08-06 16:09] LABS: Calcium 9.5 mg/dL (8.7-10.4)
[2024-08-06 16:14] LABS: BUN/Creatinine Ratio 25.1 (10.0-20.0)
[2024-08-06 16:19] LABS: Blood Urea Nitrogen 42 mg/dL (9-23); Carbon Dioxide 16 mmol/L (20-31); Chloride 127 mmol/L (98-107)
[2024-08-06 16:20] LABS: Lymphocytes % (manual) 2 (10.0-50.0); Monocytes % (manual) 1 (0-12)
[2024-08-06 16:21] LABS: Glucose 442 mg/dL (74-106); Lactic Acid w/Reflex 2.9 mmol/L (0.4-2.0); Sodium 161 mmol/L (136-145)
[2024-08-06 16:21] LABS: Platelet Estimate Adequate
[2024-08-06 18:36] LABS: Calcium 9.3 mg/dL (8.7-10.4); Chloride 129 mmol/L (98-107); Potassium 3.4 mmol/L (3.5-5.1)
[2024-08-06 18:37] LABS: Anion Gap 14 (5-15); Carbon Dioxide 19 mmol/L (20-31); Sodium 162 mmol/L (136-145)
[2024-08-06 18:41] LABS: BUN/Creatinine Ratio 25.5 (10.0-20.0)
[2024-08-06 18:43] LABS: Blood Urea Nitrogen 37 mg/dL (9-23); Glucose 292 mg/dL (74-106)
[2024-08-06 20:30] VITALS: PULSE 105; RESP 17; O2SAT 96
[2024-08-06 22:19] LABS: Anion Gap 8 (5-15); Carbon Dioxide 28 mmol/L (20-31)
[2024-08-06 22:24] LABS: BUN/Creatinine Ratio 31.4 (10.0-20.0)
[2024-08-06 22:27] LABS: Blood Urea Nitrogen 38 mg/dL (9-23); Calcium 8.6 mg/dL (8.7-10.4); Chloride 129 mmol/L (98-107); Glucose 129 mg/dL (74-106); Sodium 165 mmol/L (136-145)
[2024-08-06] MEDS: TOPIRAMATE 25 MG TAB PO SCH (22:30)
[2024-08-06] MEDS: RIVASTIGMINE TARTRATE 1.5 MG PO SCH (22:30)
[2024-08-06] MEDS: LACTATED RINGER'S 1,000 ML IV SCH (23:47)
[2024-08-07] VITALS (23 sets, daily range): BP systolic 111–153; BP diastolic 59–121; PULSE 72–129; RESP 11–18; TEMP 98.2–99.1; O2SAT 95–100
[2024-08-07 02:17] LABS: Anion Gap 8 (5-15); Calcium 8.9 mg/dL (8.7-10.4); Carbon Dioxide 28 mmol/L (20-31)
[2024-08-07 02:22] LABS: BUN/Creatinine Ratio 29.9 (10.0-20.0); Blood Urea Nitrogen 32 mg/dL (9-23); Chloride 127 mmol/L (98-107); Glucose 78 mg/dL (74-106); Potassium 3.4 mmol/L (3.5-5.1)
[2024-08-07 02:25] LABS: Sodium 163 mmol/L (136-145)
[2024-08-07] MEDS ORDERED: DEXTROSE (50%) 50ML SYRG IV PRN ×3 (05:15→23:15)
[2024-08-07] MEDS: D5W 5% 1,000 ML IV SCH (05:24)
[2024-08-07] MEDS ORDERED: ACCU-CHEK COMFORT CURVE STRIP VI SCH (06:00)
[2024-08-07 07:00] LABS: Basophils # (auto) 0.1 10 ^3/uL (0-0.2); Basophils % (auto) 0.4 % (0.0-2.0); Eosinophils # (auto) 0.1 10 ^3/uL (0-0.8); Eosinophils % (auto) 0.5 % (0.0-7.0); Hematocrit 42.4 % (36.0-46.0); Hemoglobin 13.5 g/dL (12.2-16.2); Lymphocytes # (auto) 1.7 10 ^3/uL (0.4-5.4); Lymphocytes % (auto) 8.3 % (10.0-50.0); Mean Corpuscular Hemoglobin 28.8 pg (28.0-32.0); Mean Corpuscular Hgb Conc. 31.8 g/dL (32.0-36.0); Mean Corpuscular Volume 90.6 fL (80.0-100.0); Monocytes % (auto) 4.8 % (0.0-12.0); Neutrophils # (auto) 18.1 10 ^3/uL (1.6-8.6); Platelet Count (auto) 214 10^3/uL (140-450); Red Blood Cells 4.67 10^6/uL (4.0-5.20); Red Cell Distribution Width 15.3 % (11.8-14.3); White Blood Cell 21.1 10^3/uL (4.4-10.8)
[2024-08-07 07:24] LABS: Albumin 3.4 g/dL (3.2-4.8); Anion Gap 8 (5-15); BUN/Creatinine Ratio 28.7 (10.0-20.0); Bilirubin, Total 0.4 mg/dL (0.2-1.0); Calcium 8.9 mg/dL (8.7-10.4); Carbon Dioxide 28 mmol/L (20-31)
[2024-08-07 07:55] LABS: Alanine Aminotransferase 582 U/L (7-40); Alkaline Phosphatase 136 U/L (46-116); Aspartate Aminotransferase 372 U/L (13-40); Blood Urea Nitrogen 27 mg/dL (9-23); Chloride 124 mmol/L (98-107); Glucose 133 mg/dL (74-106); Potassium 3.3 mmol/L (3.5-5.1); Sodium 160 mmol/L (136-145); Total Protein 5.5 g/dL (5.7-8.2)
[2024-08-07] MEDS: InsuLIN REG 1unit/0.01ml Soln (100units/ml) SC SCH ×2 (09:22→17:20)
[2024-08-07] MEDS: ACCU-CHEK COMFORT CURVE STRIP VI SCH ×2 (09:24→17:21)
[2024-08-07] MEDS: POTASSIUM CHL 20MEQ/100ML 100 ML IV SCH ×2 (09:52→16:06)
[2024-08-07] MEDS: cefTRIAXone 1GM/50ML D5W 50 ML IV SCH (09:53)
[2024-08-07] MEDS ORDERED: PATIENTS OWN MEDICATION (Omeprazole (Omeprazole Dr) 1 CAP) PO SCH (10:00)
[2024-08-07] MEDS: VENLAFAXINE HYDROCHLORIDE 150 MG PO SCH (10:00)
[2024-08-07] MEDS ORDERED: PATIENTS OWN MEDICATION (Memantine Hydrochloride (Memantine HCl) 1 TAB) PO SCH (10:00)
[2024-08-07] MEDS: MEMANTINE HCL 5 MG TAB PO SCH (10:00)
[2024-08-07] MEDS: PANTOPRAZOLE 40 MG TAB PO SCH (10:00)
[2024-08-07] MEDS: ENOXAPARIN SOD 40 MG/0.4 ML SYRINGE SC SCH (10:15)
[2024-08-07 10:42] LABS: Anion Gap 7 (5-15); Carbon Dioxide 30 mmol/L (20-31); Potassium 3.8 mmol/L (3.5-5.1)
[2024-08-07 10:44] LABS: Calcium 9.2 mg/dL (8.7-10.4)
[2024-08-07 10:49] LABS: BUN/Creatinine Ratio 22.3 (10.0-20.0)
[2024-08-07 10:59] LABS: Blood Urea Nitrogen 23 mg/dL (9-23); Chloride 120 mmol/L (98-107); Glucose 213 mg/dL (74-106); Sodium 157 mmol/L (136-145)
[2024-08-07] MEDS: MAGNESIUM SULFATE 1GM/100ML 100 ML IV ONE (11:06)
[2024-08-07] MEDS ORDERED: SODIUM CHLORIDE 0.9% 1,000 ML IV SCH (13:45)
[2024-08-07 14:23] LABS: Anion Gap 7 (5-15); Carbon Dioxide 29 mmol/L (20-31)
[2024-08-07 14:27] LABS: Calcium 8.6 mg/dL (8.7-10.4); Chloride 117 mmol/L (98-107); Sodium 153 mmol/L (136-145)
[2024-08-07 14:28] LABS: Blood Urea Nitrogen 23 mg/dL (9-23)
[2024-08-07 14:29] LABS: Magnesium 1.9 mg/dL (1.6-2.6)
[2024-08-07] MEDS: MEROPENEM 1GM IVPB 50 ML IV ONE (14:33)
[2024-08-07 14:40] LABS: Glucose 289 mg/dL (74-106)
[2024-08-07] MEDS: SODIUM BICARB 50mEq/50ml Vial 50 ML in SOD CHL 0.45% 1,000 ML IV SCH (15:47)
[2024-08-07] MEDS: SOD CHL 0.45% 1,000 ML IV SCH (16:22)
--- NOTE | 2024-08-07 17:01 | DVHINCON2 ---
Date of service: Aug 07, 2024 Referring Physician Hospitalist Reason for Consultation Acute kidney injury History of Present Illness 74-year-old female with a past medical history of dementia, diabetes, hypertension, dementia who is bed-bound and taking care of by her spouse. She presents to the hospital after a fall. She was found to have severe hyperglycemia diabetic ketoacidosis. Patient was treated with insulin drip and now on subcu. Nephrology consulted due to abnormal electrolytes. Patient is nonverbal at bedside provide full history. Patient's movements are slow and delayed Allergies: Coded Allergies: NO KNOWN ALLERGIES (Unverified , 11/29/13) Home Meds Reported Medications Atorvastatin Calcium (ATORVASTATIN CALCIUM) 10 Mg Tab, 1 TAB PO DAILY 08/06/24 Metformin Hydrochloride (Metformin Hydrochloride) 500 Mg Tab, 1 TAB PO BID 01/12/22 Omeprazole (Omeprazole Dr) 20 Mg Cap, 1 CAP PO DAILY 01/12/22 Topiramate (Topiramate) 25 Mg Tab, 2 TAB PO BID 01/12/22 Venlafaxine Hydrochloride (Venlafaxine Hydrochloride) 150 Mg Cap, 1 CAP PO DAILY 01/12/22 Memantine Hydrochloride (Memantine HCl) 10 Mg Tab, 1 TAB PO DAILY 01/12/22 Rivastigmine Tartrate (Rivastigmine Tartrate) 1.5 Mg Cap, 1 CAP PO BID 01/12/22 Current Medications Current Medications Medications (Trade) Dose Ordered Sig/Dalton Route PRN Reason Start Time Stop Time Status Last Admin Sodium Chloride 1,000 ml @ 150 mls/hr Q6H40M IV 08/06/24 18:30 08/06/24 23:44 DC 08/06/24 19:00 Ceftriaxone Sodium 50 ml @ 100 mls/hr DAILY@09 IV 08/07/24 09:00 08/07/24 13:56 DC 08/07/24 09:53 Enoxaparin Sodium (Lovenox) 40 mg DAILY SC 08/07/24 10:00 08/07/24 10:15 Topiramate (Topamax) 50 mg BID PO 08/06/24 22:00 Patient Own Medication 1 tab DAILY PO 08/07/24 10:00 UNV Patient Own Medication 1 cap DAILY PO 08/07/24 10:00 UNV Patient Own Medication 1 cap BID PO 08/06/24 22:00 Patient Own Medication 1 cap DAILY PO 08/07/24 10:00 Memantine (Namenda Tablet) 10 mg DAILY PO 08/07/24 10:00 Pantoprazole Sodium (Protonix Tablet) 40 mg DAILY PO 08/07/24 10:00 08/07/24 14:55 DC Lactated Ringer's 1,000 ml @ 150 mls/hr Q6H40M IV 08/06/24 23:45 08/07/24 05:09 DC 08/06/24 23:47 Diagnostic Test (Pha) (Accu-Chek Comfort Curve T) 1 strip Q4HR 08/07/24 06:00 08/07/24 05:33 DC Dextrose 1,000 ml @ 100 mls/hr Q10H IV 08/07/24 05:15 08/07/24 13:56 DC 08/07/24 05:24 Insulin Human Regular (InsuLIN R) IQ4HR SC 08/07/24 08:00 08/07/24 14:15 DC 08/07/24 11:58 Dextrose 50 ml UD PRN IV Blood Sugar LESS THAN 60 08/07/24 05:15 08/07/24 13:56 DC Diagnostic Test (Pha) (Accu-Chek Comfort Curve T) 1 strip Q4HR 08/07/24 08:00 08/07/24 14:15 DC 08/07/24 11:58 Potassium Chloride 100 ml @ 50 mls/hr Q2H IV 08/07/24 09:00 08/07/24 12:59 DC 08/07/24 15:11 Meropenem 50 ml @ 17 mls/hr Q8HR IV 08/07/24 22:00 Sodium Chloride 1,000 ml @ 100 mls/hr Q10H IV 08/07/24 13:45 08/07/24 14:09 DC Diagnostic Test (Pha) (Accu-Chek Comfort Curve T) 1 strip Q6HR 08/07/24 18:00 Insulin Human Regular (InsuLIN R) Q6HR SC 08/07/24 18:00 Dextrose 50 ml UD PRN IV Blood Sugar LESS THAN 60 08/07/24 13:45 Sodium Bicarbonate 50 ml/ Sodium Chloride 1,050 ml @ 100 mls/hr [id number] IV 08/07/24 14:15 08/07/24 15:58 DC 08/07/24 15:47 Pantoprazole Sodium (Protonix) 40 mg DAILY IV 08/08/24 10:00 Potassium Chloride 100 ml @ 50 mls/hr Q2H IV 08/07/24 15:15 08/07/24 17:14 08/07/24 16:06 Sodium Chloride 1,000 ml @ 100 mls/hr Q10H IV 08/07/24 16:00 08/07/24 16:22 Family History: Patient reports no known family medical history. Review of Systems Can not obtain due to altered mental state H&P Exam Vital Signs/I&O Vital Sign Date Time Temp Pulse Resp B/P (MAP) Pulse Ox O2 Delivery O2 Flow Rate FiO2 08/07/24 16:00 13 98 Room Air* 0 21 08/07/24 16:00 77 08/07/24 16:00 134/68 (90) 08/07/24 12:00 98.2 98.2 Intake and Output 08/06/24 08/07/24 19:00 07:00 Intake Total 2866 ml 919 ml Output Total 1300 ml Balance 2866 ml -381 ml Intake IV Total 2866 ml 919 ml Output Urine Total 1300 ml Physical Exam Frail elderly white female Alert and arousable but nonverbal Movement patterns are delayed and somewhat robotic. No edema Decreased muscle tone No pitting edema Regular rate and rhythm Labs/Diagnostic Data Labs/Diagnostic Data Laboratory Tests Test 08/07/24 13:55 08/07/24 10:05 08/07/24 06:36 08/07/24 01:55 Range/Units Sodium Level 153 H 157 H 160 H 163 *H 136-145 mmol/L Potassium Level 3.0 L 3.8 3.3 L 3.4 L 3.5-5.1 mmol/L Chloride Level 117 H 120 H 124 H 127 H 98-107 mmol/L Carbon Dioxide Level 29 30 28 28 20-31 mmol/L Anion Gap 7 7 8 8 5-15 Blood Urea Nitrogen 23 23 27 H 32 H 9-23 mg/dL Creatinine 0.92 1.03 H 0.94 1.07 H 0.550-1.02 mg/dL Glomerular Filtration Rate Calc 65 57 63 54 >90 mL/min BUN/Creatinine Ratio 25.0 H 22.3 H 28.7 H 29.9 H 10.0-20.0 Serum Glucose 289 H 213 H 133 H 78 74-106 mg/dL Calcium Level 8.6 L 9.2 8.9 8.9 8.7-10.4 mg/dL Magnesium Level 1.9 1.6 1.6-2.6 mg/dL White Blood Count 21.1 H 4.4-10.8 10^3/uL Red Blood Count 4.67 4.0-5.20 10^6/uL Hemoglobin 13.5 12.2-16.2 g/dL Hematocrit 42.4 36.0-46.0 % Mean Corpuscular Volume 90.6 # 80.0-100.0 fL Mean Corpuscular Hemoglobin 28.8 28.0-32.0 pg Mean Corpuscular Hemoglobin Concent 31.8 L 32.0-36.0 g/dL Red Cell Distribution Width 15.3 H 11.8-14.3 % Platelet Count 214 140-450 10^3/uL Mean Platelet Volume 11.0 H 6.9-10.8 fL Neutrophils (%) (Auto) 86.0 H 37.0-80.0 % Lymphocytes (%) (Auto) 8.3 L 10.0-50.0 % Monocytes (%) (Auto) 4.8 0.0-12.0 % Eosinophils (%) (Auto) 0.5 0.0-7.0 % Basophils (%) (Auto) 0.4 0.0-2.0 % Neutrophils # (Auto) 18.1 H 1.6-8.6 10 ^3/uL Lymphocytes # (Auto) 1.7 0.4-5.4 10 ^3/uL Monocytes # (Auto) 1.0 0-1.3 10 ^3/uL Eosinophils # (Auto) 0.1 0-0.8 10 ^3/uL Basophils # (Auto) 0.1 0-0.2 10 ^3/uL Nucleated Red Blood Cells 0.0 % Total Bilirubin 0.4 0.2-1.0 mg/dL Aspartate Amino Transferase (AST) 372 H 13-40 U/L Alanine Aminotransferase (ALT) 582 H 7-40 U/L Alkaline Phosphatase 136 H 46-116 U/L Total Protein 5.5 L 5.7-8.2 g/dL Albumin 3.4 3.2-4.8 g/dL Test 08/06/24 21:51 08/06/24 17:45 08/06/24 15:31 08/06/24 13:33 Range/Units Sodium Level 165 *H 162 *H 161 *H 136-145 mmol/L Potassium Level 3.0 L 3.4 L 3.7 3.5-5.1 mmol/L Chloride Level 129 H 129 H 127 H 98-107 mmol/L Carbon Dioxide Level 28 19 L 16 L 20-31 mmol/L Anion Gap 8 14 18 H 5-15 Blood Urea Nitrogen 38 H 37 H 42 #H 9-23 mg/dL Creatinine 1.21 H 1.45 H 1.67 H 0.550-1.02 mg/dL Glomerular Filtration Rate Calc 47 38 32 >90 mL/min BUN/Creatinine Ratio 31.4 H 25.5 H 25.1 H 10.0-20.0 Serum Glucose 129 H 292 H 442 *H 74-106 mg/dL Calcium Level 8.6 L 9.3 9.5 8.7-10.4 mg/dL Lactic Acid Level 2.8 *H 2.9 *H 0.4-2.0 mmol/L Blood Gas Specimen Type Arterial Blood Gas Sample Site Left radial Blood Gas Patient Temperature 37.0 Arterial Blood Date Drawn [id number] Arterial Blood pH 7.296 L 7.350-7.450 Arterial Blood Partial Pressure CO2 29.7 L 32.0-45.0 mmHg Arterial Blood Partial Pressure O2 81.1 L 83.0-108.0 mmHg Arterial Blood HCO3 14.2 L 21.0-28.0 mmol/L Arterial Blood Oxygen Saturation 94.7 94.0-98.0 % Arterial Blood Base Excess -10.8 L -2.0-3.0 mmol/L Arterial Blood Oxyhemoglobin 93.4 L 94.0-98.0 % Arterial Blood Carboxyhemoglobin 0.6 0.5-1.5 % Arterial Blood Methemoglobin 0.8 0.0-1.5 % Rafiq Test Yes Blood Gas Total Hemoglobin 14.80 12.0-16.0 g/dL Blood Gas Modality Room air FiO2 % 21.0 Test 08/06/24 13:03 08/06/24 09:14 08/06/24 08:00 Range/Units White Blood Count 18.3 H 22.6 H 4.4-10.8 10^3/uL Red Blood Count 4.77 5.26 H 4.0-5.20 10^6/uL Hemoglobin 14.0 15.5 12.2-16.2 g/dL Hematocrit 45.1 50.0 H 36.0-46.0 % Mean Corpuscular Volume 94.6 95.1 80.0-100.0 fL Mean Corpuscular Hemoglobin 29.4 29.5 28.0-32.0 pg Mean Corpuscular Hemoglobin Concent 31.1 L 31.0 L 32.0-36.0 g/dL Red Cell Distribution Width 15.4 H 15.6 H 11.8-14.3 % Platelet Count 257 305 140-450 10^3/uL Mean Platelet Volume 11.4 H 11.3 H 6.9-10.8 fL Neutrophils (%) (Auto) 88.6 H 37.0-80.0 % Lymphocytes (%) (Auto) 6.7 L 10.0-50.0 % Monocytes (%) (Auto) 4.5 0.0-12.0 % Basophils (%) (Auto) 0.2 0.0-2.0 % Neutrophils # (Auto) 20.0 H 1.6-8.6 10 ^3/uL Lymphocytes # (Auto) 1.5 0.4-5.4 10 ^3/uL Monocytes # (Auto) 1.0 0-1.3 10 ^3/uL Differential Total Cells Counted 100.0 100 Neutrophils % (Manual) 97 H 37.0-80.0 Band Neutrophils % (Manual) 0 Lymphocytes % (Manual) 2 L 10.0-50.0 Monocytes % (Manual) 1 0-12 Eosinophils % (Manual) 0 0-7 Basophils % (Manual) 0 0.0-2.0 Metamyelocytes % (manual) 0 Myelocytes % (Manual) 0 Promyelocytes % (Manual) 0 Blast Cells % (Manual) 0 Reactive Lymphocytes 0 Platelet Estimate Adequate Sodium Level 160 #H 152 H 136-145 mmol/L Potassium Level 4.5 4.9 3.5-5.1 mmol/L Chloride Level 121 H 114 H 98-107 mmol/L Carbon Dioxide Level 19 L 16 L 20-31 mmol/L Anion Gap 20 H 22 H 5-15 Blood Urea Nitrogen 68 #H 57 H 9-23 mg/dL Creatinine 1.93 H 2.13 H 0.550-1.02 mg/dL Glomerular Filtration Rate Calc 27 24 >90 mL/min BUN/Creatinine Ratio 35.2 H 26.8 H 10.0-20.0 Serum Glucose 679 *H 780 *H 74-106 mg/dL Hemoglobin A1c > 14.0 H <5.7 % A1C Serum Osmolality 392 H 278-298 mOsm/kg Calcium Level 9.7 10.6 H 8.7-10.4 mg/dL Phosphorus Level 4.3 2.4-5.1 mg/dL Magnesium Level 2.4 2.6 1.6-2.6 mg/dL Beta-Hydroxybutyric Acid > 4.500 H < 0.4 mmol/L Urine Color Light-yellow Yellow Urine Clarity Clear Clear Urine pH 5.0 5.0-9.0 Urine Specific [place] 1.032 1.001-1.035 Urine Protein Trace H Negative Urine Ketones 2+ H Negative Urine Blood Trace H Negative /uL Urine Nitrite Negative Negative Urine Bilirubin Negative Negative Urine Urobilinogen Normal Negative mg/dL Urine Leukocyte Esterase Negative Negative /uL Urine RBC 4 0 - 4 /hpf Urine WBC 2 0 - 5 /hpf Urine Squamous Epithelial Cells Few <5 /hpf Urine Bacteria Few H None Seen /hpf Urine Hyaline Casts Few 0 - 2 /lpf Urine Mucus Few None Seen Urine Glucose 4+ H Normal mg/dL Eosinophils (%) (Auto) 0.0 0.0-7.0 % Eosinophils # (Auto) 0 0-0.8 10 ^3/uL Basophils # (Auto) 0 0-0.2 10 ^3/uL Nucleated Red Blood Cells 0.0 % Total Bilirubin 0.4 0.2-1.0 mg/dL Aspartate Amino Transferase (AST) 1063 H 13-40 U/L Alanine Aminotransferase (ALT) 979 H 7-40 U/L Alkaline Phosphatase 187 H 46-116 U/L Troponin I High Sensitivity 31 </=34 ng/L Total Protein 7.2 5.7-8.2 g/dL Albumin 4.5 3.2-4.8 g/dL Assessment Acute kidney injury hemodynamically mediated in the setting of volume depletion No previous history of kidney disease Diabetic ketoacidosis Hypernatremia Hypokalemia Dementia Depression Altered mental state Discontinue sodium bicarbonate drip as electrolyte shifting is likely causing low potassium level We will change to half NS Potassium replacement BNP is due in the next few hours after IV replacement If patient is unable to tolerate p.o. which is currently in the case then she may require some low-dose dextrose with hypotonic fluid Continue to monitor sugars Avoid hypotension Replace all electrolytes Rest of care as per primary medical team. Plan discussed with: Spouse ALMA WILLINGHAM MD Aug 07, 2024 17:01
[2024-08-07] MEDS: POTASSIUM CHL 20MEQ/100ML 100 ML IV ONE (17:21)
--- NOTE | 2024-08-07 17:49 | DVHCONRES ---
Date Seen: Aug 07, 2024 Resident Creating Document: NORMA STEEN RESIDENT Referring Physician Edie Moore NP History of Present Illness This is a 74 year old female with a past medical history significant for Dementia, depression, cholecystectomy, diabetes and right wrist surgery who presents to the ED s/p fall x 1 day. According to relatives, patient for the past couple of days has not been herself. Communicating, her words were kind of mumbled and she did not seems to be making a lot of sense. And she seems slightly confused sometimes. Of note the also did mentioned that patient was unable to swallow her food. Does after fall patient was brought to the ED for further evaluation. In the ED patient was found to have temperature was 98.7, pulse was 85, respiration 13 blood pressure was 148/84. WBC was 22.6, hemoglobin was 15.5, Na: 153, lactic acid 2.9, A1c > 14, anion gap of 22. liver enzymes were markedly elevated. CT of the head No evidence of acute intracranial abnormality but Left frontal scalp swelling and Ventriculomegaly, which may be related to volume loss. A component of communicating hydrocephalus not excluded. GI consulted for further evaluation given the elevated liver enzymes Past Medical History Dementia, diabetes, depression, Past Surgical History Cholecystectomy, Other (right hand surgery for fx per ) Family History: Patient reports no known family medical history. Family History Noncontributory Social History Lives at home with family, no alcohol no smoking Allergies: Coded Allergies: NO KNOWN ALLERGIES (Unverified , 11/29/13) Home Meds Reported Medications Atorvastatin Calcium (ATORVASTATIN CALCIUM) 10 Mg Tab, 1 TAB PO DAILY 08/06/24 Metformin Hydrochloride (Metformin Hydrochloride) 500 Mg Tab, 1 TAB PO BID 01/12/22 Omeprazole (Omeprazole Dr) 20 Mg Cap, 1 CAP PO DAILY 01/12/22 Topiramate (Topiramate) 25 Mg Tab, 2 TAB PO BID 01/12/22 Venlafaxine Hydrochloride (Venlafaxine Hydrochloride) 150 Mg Cap, 1 CAP PO DAILY 01/12/22 Memantine Hydrochloride (Memantine HCl) 10 Mg Tab, 1 TAB PO DAILY 01/12/22 Rivastigmine Tartrate (Rivastigmine Tartrate) 1.5 Mg Cap, 1 CAP PO BID 01/12/22 Current Medications Current Medications Medications (Trade) Dose Ordered Sig/Dalton Route PRN Reason Start Time Stop Time Status Last Admin Sodium Chloride 1,000 ml @ 150 mls/hr Q6H40M IV 08/06/24 18:30 08/06/24 23:44 DC 08/06/24 19:00 Ceftriaxone Sodium 50 ml @ 100 mls/hr DAILY@09 IV 08/07/24 09:00 08/07/24 13:56 DC 08/07/24 09:53 Enoxaparin Sodium (Lovenox) 40 mg DAILY SC 08/07/24 10:00 08/07/24 10:15 Topiramate (Topamax) 50 mg BID PO 08/06/24 22:00 Patient Own Medication 1 tab DAILY PO 08/07/24 10:00 UNV Patient Own Medication 1 cap DAILY PO 08/07/24 10:00 UNV Patient Own Medication 1 cap BID PO 08/06/24 22:00 Patient Own Medication 1 cap DAILY PO 08/07/24 10:00 Memantine (Namenda Tablet) 10 mg DAILY PO 08/07/24 10:00 Pantoprazole Sodium (Protonix Tablet) 40 mg DAILY PO 08/07/24 10:00 08/07/24 14:55 DC Lactated Ringer's 1,000 ml @ 150 mls/hr Q6H40M IV 08/06/24 23:45 08/07/24 05:09 DC 08/06/24 23:47 Diagnostic Test (Pha) (Accu-Chek Comfort Curve T) 1 strip Q4HR 08/07/24 06:00 08/07/24 05:33 DC Dextrose 1,000 ml @ 100 mls/hr Q10H IV 08/07/24 05:15 08/07/24 13:56 DC 08/07/24 05:24 Insulin Human Regular (InsuLIN R) IQ4HR SC 08/07/24 08:00 08/07/24 14:15 DC 08/07/24 11:58 Dextrose 50 ml UD PRN IV Blood Sugar LESS THAN 60 08/07/24 05:15 08/07/24 13:56 DC Diagnostic Test (Pha) (Accu-Chek Comfort Curve T) 1 strip Q4HR 08/07/24 08:00 08/07/24 14:15 DC 08/07/24 11:58 Potassium Chloride 100 ml @ 50 mls/hr Q2H IV 08/07/24 09:00 08/07/24 12:59 DC 08/07/24 15:11 Meropenem 50 ml @ 17 mls/hr Q8HR IV 08/07/24 22:00 Sodium Chloride 1,000 ml @ 100 mls/hr Q10H IV 08/07/24 13:45 08/07/24 14:09 DC Diagnostic Test (Pha) (Accu-Chek Comfort Curve T) 1 strip Q6HR 08/07/24 18:00 Insulin Human Regular (InsuLIN R) Q6HR SC 08/07/24 18:00 Dextrose 50 ml UD PRN IV Blood Sugar LESS THAN 60 08/07/24 13:45 Sodium Bicarbonate 50 ml/ Sodium Chloride 1,050 ml @ 100 mls/hr [id number] IV 08/07/24 14:15 08/07/24 15:58 DC 08/07/24 15:47 Pantoprazole Sodium (Protonix) 40 mg DAILY IV 08/08/24 10:00 Potassium Chloride 100 ml @ 50 mls/hr Q2H IV 08/07/24 15:15 08/07/24 17:14 DC 08/07/24 16:06 Sodium Chloride 1,000 ml @ 100 mls/hr Q10H IV 08/07/24 16:00 08/07/24 16:22 Review of Systems Unable to obtain as patient was sleeping or not talking Vital Signs Vital Signs Date Time Temp Pulse Resp B/P (MAP) Pulse Ox O2 Delivery O2 Flow Rate FiO2 08/07/24 16:00 13 98 Room Air* 0 21 08/07/24 16:00 77 08/07/24 16:00 134/68 (90) 08/07/24 12:00 98.2 98.2 Physical Exam General examination- lying in bed with eyes closed however did show facial expression of pain upon abdominal palpation HEENT: [place]ER[place], no acute nasal discharge Chest: S1-S2 audible, rate and rhythm regular, no murmur Lung: CTAB, no wheeze or rhonchi Abdomen: Tenderness, bowel sounds present Musculoskeletal: Negative Lower extremity: no leg edema Neurological: Unable to obtain Psychiatry-- unable to obtain Skin- no acute rash or purpura Labs/Diagnostic Data Labs Test 08/07/24 13:55 08/07/24 06:36 08/06/24 17:45 08/06/24 13:33 Range/Units Sodium Level 153 H 136-145 mmol/L Potassium Level 3.0 L 3.5-5.1 mmol/L Chloride Level 117 H 98-107 mmol/L Carbon Dioxide Level 29 20-31 mmol/L Anion Gap 7 5-15 Blood Urea Nitrogen 23 9-23 mg/dL Creatinine 0.92 0.550-1.02 mg/dL Glomerular Filtration Rate Calc 65 >90 mL/min BUN/Creatinine Ratio 25.0 H 10.0-20.0 Serum Glucose 289 H 74-106 mg/dL Calcium Level 8.6 L 8.7-10.4 mg/dL Magnesium Level 1.9 1.6-2.6 mg/dL White Blood Count 21.1 H 4.4-10.8 10^3/uL Red Blood Count 4.67 4.0-5.20 10^6/uL Hemoglobin 13.5 12.2-16.2 g/dL Hematocrit 42.4 36.0-46.0 % Mean Corpuscular Volume 90.6 # 80.0-100.0 fL Mean Corpuscular Hemoglobin 28.8 28.0-32.0 pg Mean Corpuscular Hemoglobin Concent 31.8 L 32.0-36.0 g/dL Red Cell Distribution Width 15.3 H 11.8-14.3 % Platelet Count 214 140-450 10^3/uL Mean Platelet Volume 11.0 H 6.9-10.8 fL Neutrophils (%) (Auto) 86.0 H 37.0-80.0 % Lymphocytes (%) (Auto) 8.3 L 10.0-50.0 % Monocytes (%) (Auto) 4.8 0.0-12.0 % Eosinophils (%) (Auto) 0.5 0.0-7.0 % Basophils (%) (Auto) 0.4 0.0-2.0 % Neutrophils # (Auto) 18.1 H 1.6-8.6 10 ^3/uL Lymphocytes # (Auto) 1.7 0.4-5.4 10 ^3/uL Monocytes # (Auto) 1.0 0-1.3 10 ^3/uL Eosinophils # (Auto) 0.1 0-0.8 10 ^3/uL Basophils # (Auto) 0.1 0-0.2 10 ^3/uL Nucleated Red Blood Cells 0.0 % Total Bilirubin 0.4 0.2-1.0 mg/dL Aspartate Amino Transferase (AST) 372 H 13-40 U/L Alanine Aminotransferase (ALT) 582 H 7-40 U/L Alkaline Phosphatase 136 H 46-116 U/L Total Protein 5.5 L 5.7-8.2 g/dL Albumin 3.4 3.2-4.8 g/dL Lactic Acid Level 2.8 *H 0.4-2.0 mmol/L Blood Gas Specimen Type Arterial Blood Gas Sample Site Left radial Blood Gas Patient Temperature 37.0 Arterial Blood Date Drawn [id number] Arterial Blood pH 7.296 L 7.350-7.450 Arterial Blood Partial Pressure CO2 29.7 L 32.0-45.0 mmHg Arterial Blood Partial Pressure O2 81.1 L 83.0-108.0 mmHg Arterial Blood HCO3 14.2 L 21.0-28.0 mmol/L Arterial Blood Oxygen Saturation 94.7 94.0-98.0 % Arterial Blood Base Excess -10.8 L -2.0-3.0 mmol/L Arterial Blood Oxyhemoglobin 93.4 L 94.0-98.0 % Arterial Blood Carboxyhemoglobin 0.6 0.5-1.5 % Arterial Blood Methemoglobin 0.8 0.0-1.5 % Rafiq Test Yes Blood Gas Total Hemoglobin 14.80 12.0-16.0 g/dL Blood Gas Modality Room air FiO2 % 21.0 Test 08/06/24 13:03 08/06/24 09:14 08/06/24 08:00 Range/Units Differential Total Cells Counted 100.0 100 Neutrophils % (Manual) 97 H 37.0-80.0 Band Neutrophils % (Manual) 0 Lymphocytes % (Manual) 2 L 10.0-50.0 Monocytes % (Manual) 1 0-12 Eosinophils % (Manual) 0 0-7 Basophils % (Manual) 0 0.0-2.0 Metamyelocytes % (manual) 0 Myelocytes % (Manual) 0 Promyelocytes % (Manual) 0 Blast Cells % (Manual) 0 Reactive Lymphocytes 0 Platelet Estimate Adequate Hemoglobin A1c > 14.0 H <5.7 % A1C Serum Osmolality 392 H 278-298 mOsm/kg Phosphorus Level 4.3 2.4-5.1 mg/dL Beta-Hydroxybutyric Acid > 4.500 H < 0.4 mmol/L Urine Color Light-yellow Yellow Urine Clarity Clear Clear Urine pH 5.0 5.0-9.0 Urine Specific [place] 1.032 1.001-1.035 Urine Protein Trace H Negative Urine Ketones 2+ H Negative Urine Blood Trace H Negative /uL Urine Nitrite Negative Negative Urine Bilirubin Negative Negative Urine Urobilinogen Normal Negative mg/dL Urine Leukocyte Esterase Negative Negative /uL Urine RBC 4 0 - 4 /hpf Urine WBC 2 0 - 5 /hpf Urine Squamous Epithelial Cells Few <5 /hpf Urine Bacteria Few H None Seen /hpf Urine Hyaline Casts Few 0 - 2 /lpf Urine Mucus Few None Seen Urine Glucose 4+ H Normal mg/dL Troponin I High Sensitivity 31 </=34 ng/L Microbiology Date/Time Source Procedure Growth Status 08/06/24 15:31 Blood Blood Culture - Preliminary NO GROWTH AFTER 24 HOURS OF INCUBATION. Resulted 08/06/24 09:14 Urine - [place] Urine Culture - Preliminary Resulted Assessment Hypoxic liver injury --> likely secondary to underlying DKA/dehydration --> Recommend 1/2 NS 100ml/hr --> Manage the underlying cause --> comprehensive hepatic panel to rule out any underlying viral cause Diabetic ketoacidosis --> anion gap metabolic acidosis Gap closed now --> Serum sugar 780 --> hgb > 14.0 --> Insulin --> adequate hydration --> Accu checks --> replace potassium Hypokalemia --> K: 3.3 --> Monitor EKG Lactic acidosis --> Bicarbonate 1 amp/ liter fluid Dehydration 1/2 NS 100ml/hr ADONIS secondary to VMN --> adequate hydration Hypernatremia Metabolic encephalopathy --> in the setting of DKA/hypernatremia --> manage the underlying condition Severe protein calorie malnutrition --> BMI of 18.9 --> muscle wasting Dementia Depression Goal of care discussed for more than 35 minute Case and plan discussed with Dr. Knight Thank you for allowing us to participate in the care of this patient. Please call if you have any questions or concerns. Plan discussed with: Spouse, Daughter NORMA STEEN RESIDENT Aug 07, 2024 17:49
[2024-08-07] MEDS: PANTOPRAZOLE 40 MG/10 ML VIAL INJ IV ONE (18:16)
[2024-08-07 19:04] LABS: Potassium 3.6 mmol/L (3.5-5.1)
[2024-08-07 19:05] LABS: Anion Gap 5 (5-15); Calcium 8.8 mg/dL (8.7-10.4); Carbon Dioxide 31 mmol/L (20-31)
[2024-08-07 19:10] LABS: BUN/Creatinine Ratio 19.4 (10.0-20.0); Blood Urea Nitrogen 18 mg/dL (9-23)
[2024-08-07 19:15] LABS: Chloride 114 mmol/L (98-107); Glucose 281 mg/dL (74-106); Sodium 150 mmol/L (136-145)
--- NOTE | 2024-08-07 19:54 | DVHINCON2 ---
Date of service: Aug 07, [address] Veras Reason for Consultation Fall/?NPH History of Present Illness Ms. Vilchis is a 74 years old right-handed female with a history of prediabetes, dementia, depression, migraine headache, the patient was brought to the [facility] on 08/06/2024 with a chief company of fall injury. At thist time, the patient was is awake, she tracks, but she does not answer or respond to my questions, the history is obtained from her daughter at [phone]. I have also discussed with her nurse and other family members architectural sales consultant on 08/06/2024, the patient was fell off her bed with drive blood on her head, but the patient was awake, but only oriented to person when she arrived the emergency room. The family reported the patient was mentally altered from her baseline on 08/05/[address] brain scan dated 08/06/2023 showed dilated ventricles, I have reviewed th e films, I have also noticed obvious diffuse brain atrophy. According to her daughter and , she developed progressive mild intermittent memory difficulty and confusion around 2011, she was diagnosed with dementia in 2016 or earlier, in the last 2-3 years, the patient does not talk much, and she can only say single words or short sentences, but not long sentences. She remember her , she was remember her children 40-50% of time She was chronic gait disturbance, for 2-3 years, the patient can only walk with support from a person She was progressive chronic bladder/bowel control difficulty, for 2-3 years, she was both bowel and bladder incontinence She is on memantine 10 mg daily, rivastigmine 1.5 mg daily As far as her daughter remembers, the patient was has periodic intense headache with sensitivity to lights, noise, nausea, vomiting, and the patient was said to have migraine headache, she was on topiramate 25 mg two tablets b.i.d.. Due to her mental capability, the family is not aware if the patient was still have headache She was prescribed venlafaxine 150 mg daily, but she actually takes one tablet q.o.d.. The family is not aware of the indication. Urinalysis, 08/06/2024: WBC: 2, urine leukocyte esterase: Negative ABG, 08/06/2023: Metabolic acidosis, hypoxia, WBC/HB/PLT/MCV, 08/07/2024: 21.1/13.5/214/90.6 Na, 08/07/2024: 08/06/2024: 162, 160, 153, 150 K, 08/07/2024: 3.3, 3.6 Anion gap, 08/06/2024: 22 BUN/CR, 08/06/2024: 57/2.13, 08/07/2024: 27/0.94, 18/0.93 Glucose, 08/06/2024: 780, 679, 442, 292, 08/07/2024:281 Lactic acid, 08/06/2024: 2.9, 2.8 HGB A1c, 08/06/2024: > 14 TBI/AST/ALT/AP, 08/07/2024: 0.4/372/582/136 Hepatitis panel, 08/07/2024: CT head, 01/11/2022: No intracranial hemorrhage. MRI is recommended if clinical symptoms persist. (Temporal lobe atrophy can be suggestive of the spectrum of mild cognitive impairment, Alzheimer's disease. Clinical correlation is suggested.) CT head, 08/06/2023: 1. No evidence of acute intracranial abnormality. 2. Left frontal scalp swelling. 3. Ventriculomegaly, which may be related to volume loss. A component of communicating hydrocephalus not excluded CT C-spine, 08/06/2024: 1. No evidence of acute cervical spine fracture or traumatic malalignment Past Medical History Dementia, prediabetes, depression Past Surgical History Cholecystectomy, wrist fracture repair Family History: Patient reports no known family medical history. Family History Diabetes, her father had dementia Social History He was a tobacco smoker, no history of alcohol or recreational substances abuse Allergies: Coded Allergies: NO KNOWN ALLERGIES (Unverified , 11/29/13) Home Meds Reported Medications Atorvastatin Calcium (ATORVASTATIN CALCIUM) 10 Mg Tab, 1 TAB PO DAILY 08/06/24 Metformin Hydrochloride (Metformin Hydrochloride) 500 Mg Tab, 1 TAB PO BID 01/12/22 Omeprazole (Omeprazole Dr) 20 Mg Cap, 1 CAP PO DAILY 01/12/22 Topiramate (Topiramate) 25 Mg Tab, 2 TAB PO BID 01/12/22 Venlafaxine Hydrochloride (Venlafaxine Hydrochloride) 150 Mg Cap, 1 CAP PO DAILY 01/12/22 Memantine Hydrochloride (Memantine HCl) 10 Mg Tab, 1 TAB PO DAILY 01/12/22 Rivastigmine Tartrate (Rivastigmine Tartrate) 1.5 Mg Cap, 1 CAP PO BID 01/12/22 Current Medications Current Medications Medications (Trade) Dose Ordered Sig/Dalton Route PRN Reason Start Time Stop Time Status Last Admin Ceftriaxone Sodium 50 ml @ 100 mls/hr DAILY@09 IV 08/07/24 09:00 08/07/24 13:56 DC 08/07/24 09:53 Enoxaparin Sodium (Lovenox) 40 mg DAILY SC 08/07/24 10:00 08/07/24 10:15 Topiramate (Topamax) 50 mg BID PO 08/06/24 22:00 Patient Own Medication 1 tab DAILY PO 08/07/24 10:00 UNV Patient Own Medication 1 cap DAILY PO 08/07/24 10:00 UNV Patient Own Medication 1 cap BID PO 08/06/24 22:00 Patient Own Medication 1 cap DAILY PO 08/07/24 10:00 Memantine (Namenda Tablet) 10 mg DAILY PO 08/07/24 10:00 Pantoprazole Sodium (Protonix Tablet) 40 mg DAILY PO 08/07/24 10:00 08/07/24 14:55 DC Lactated Ringer's 1,000 ml @ 150 mls/hr Q6H40M IV 08/06/24 23:45 08/07/24 05:09 DC 08/06/24 23:47 Diagnostic Test (Pha) (Accu-Chek Comfort Curve T) 1 strip Q4HR 08/07/24 06:00 08/07/24 05:33 DC Dextrose 1,000 ml @ 100 mls/hr Q10H IV 08/07/24 05:15 08/07/24 13:56 DC 08/07/24 05:24 Insulin Human Regular (InsuLIN R) IQ4HR SC 08/07/24 08:00 08/07/24 14:15 DC 08/07/24 11:58 Dextrose 50 ml UD PRN IV Blood Sugar LESS THAN 60 08/07/24 05:15 08/07/24 13:56 DC Diagnostic Test (Pha) (Accu-Chek Comfort Curve T) 1 strip Q4HR 08/07/24 08:00 08/07/24 14:15 DC 08/07/24 11:58 Potassium Chloride 100 ml @ 50 mls/hr Q2H IV 08/07/24 09:00 08/07/24 12:59 DC 08/07/24 15:11 Meropenem 50 ml @ 17 mls/hr Q8HR IV 08/07/24 22:00 Sodium Chloride 1,000 ml @ 100 mls/hr Q10H IV 08/07/24 13:45 08/07/24 14:09 DC Diagnostic Test (Pha) (Accu-Chek Comfort Curve T) 1 strip Q6HR 08/07/24 18:00 08/07/24 17:21 Insulin Human Regular (InsuLIN R) Q6HR SC 08/07/24 18:00 08/07/24 17:20 Dextrose 50 ml UD PRN IV Blood Sugar LESS THAN 60 08/07/24 13:45 Sodium Bicarbonate 50 ml/ Sodium Chloride 1,050 ml @ 100 mls/hr [id number] IV 08/07/24 14:15 08/07/24 15:58 DC 08/07/24 15:47 Pantoprazole Sodium (Protonix) 40 mg DAILY IV 08/08/24 10:00 Potassium Chloride 100 ml @ 50 mls/hr Q2H IV 08/07/24 15:15 08/07/24 17:14 DC 08/07/24 16:06 Sodium Chloride 1,000 ml @ 100 mls/hr Q10H IV 08/07/24 16:00 08/07/24 16:22 Review of Systems As above, the other systems are negative Vital Signs Vital Signs Date Time Temp Pulse Resp B/P (MAP) Pulse Ox O2 Delivery O2 Flow Rate FiO2 08/07/24 19:00 85 15 122/63 (82) 98 08/07/24 18:00 Room Air* 0 21 08/07/24 12:00 98.2 98.2 Physical Exam GENERAL EXAM: General: the patient is well developed and nourished. No acute distress. HEENT: Worse in the left forehead, otherwise unremarkable, neck is supple, no carotid bruits. No mass. RESPIRATORY: Normal respiratory effort with symmetrical lung expansion. Lungs clear to auscultation. CARDIOVASCULAR: Regular rate and rhythm with no murmurs. S1, S2. NEUROLOGICAL: MENTAL STATUS: Awake, she may only oriented to herself SPEECH, LANGUAGE, HIGHER CORTICAL FUNCTION: She does not vocalize CRANIAL NERVES: #2: Intact visual millan to confrontation. #3,4,6: Pupils are equal, round and reactive. EOMs full and conjugate. No evoked nystagmus. #5: Facial sensation intact in all three divisions bilaterally. Mandibular strength intact. #7: Facial muscles symmetrical and strength intact. #8: Hearing grossly normal to voice. #9,10: Deferred #11: Trapezius and sternomastoid strength intact bilaterally. #12: Tongue midline. No fasciculations or atrophy. SENSATION: Sensation to touch and pinprick is normal. MOTOR: Normal tone in the upper and lower extremity. Normal muscle bulk. No fasciculations. No abnormal movements or posturing. She moves the arms and legs REFLEXES: Deep tendon reflexes are symmetrical. No pathological reflexes. CEREBELLAR/COORDINATION: Deferred GAIT/STATION: deferred Labs/Diagnostic Data Labs Test 08/07/24 18:35 08/07/24 13:55 08/07/24 06:36 08/06/24 17:45 Range/Units Sodium Level 150 H 136-145 mmol/L Potassium Level 3.6 3.5-5.1 mmol/L Chloride Level 114 H 98-107 mmol/L Carbon Dioxide Level 31 20-31 mmol/L Anion Gap 5 5-15 Blood Urea Nitrogen 18 9-23 mg/dL Creatinine 0.93 0.550-1.02 mg/dL Glomerular Filtration Rate Calc 64 >90 mL/min BUN/Creatinine Ratio 19.4 10.0-20.0 Serum Glucose 281 H 74-106 mg/dL Calcium Level 8.8 8.7-10.4 mg/dL Magnesium Level 1.9 1.6-2.6 mg/dL White Blood Count 21.1 H 4.4-10.8 10^3/uL Red Blood Count 4.67 4.0-5.20 10^6/uL Hemoglobin 13.5 12.2-16.2 g/dL Hematocrit 42.4 36.0-46.0 % Mean Corpuscular Volume 90.6 # 80.0-100.0 fL Mean Corpuscular Hemoglobin 28.8 28.0-32.0 pg Mean Corpuscular Hemoglobin Concent 31.8 L 32.0-36.0 g/dL Red Cell Distribution Width 15.3 H 11.8-14.3 % Platelet Count 214 140-450 10^3/uL Mean Platelet Volume 11.0 H 6.9-10.8 fL Neutrophils (%) (Auto) 86.0 H 37.0-80.0 % Lymphocytes (%) (Auto) 8.3 L 10.0-50.0 % Monocytes (%) (Auto) 4.8 0.0-12.0 % Eosinophils (%) (Auto) 0.5 0.0-7.0 % Basophils (%) (Auto) 0.4 0.0-2.0 % Neutrophils # (Auto) 18.1 H 1.6-8.6 10 ^3/uL Lymphocytes # (Auto) 1.7 0.4-5.4 10 ^3/uL Monocytes # (Auto) 1.0 0-1.3 10 ^3/uL Eosinophils # (Auto) 0.1 0-0.8 10 ^3/uL Basophils # (Auto) 0.1 0-0.2 10 ^3/uL Nucleated Red Blood Cells 0.0 % Total Bilirubin 0.4 0.2-1.0 mg/dL Aspartate Amino Transferase (AST) 372 H 13-40 U/L Alanine Aminotransferase (ALT) 582 H 7-40 U/L Alkaline Phosphatase 136 H 46-116 U/L Total Protein 5.5 L 5.7-8.2 g/dL Albumin 3.4 3.2-4.8 g/dL Lactic Acid Level 2.8 *H 0.4-2.0 mmol/L Test 08/06/24 13:33 08/06/24 13:03 08/06/24 09:14 08/06/24 08:00 Range/Units Blood Gas Specimen Type Arterial Blood Gas Sample Site Left radial Blood Gas Patient Temperature 37.0 Arterial Blood Date Drawn [id number] Arterial Blood pH 7.296 L 7.350-7.450 Arterial Blood Partial Pressure CO2 29.7 L 32.0-45.0 mmHg Arterial Blood Partial Pressure O2 81.1 L 83.0-108.0 mmHg Arterial Blood HCO3 14.2 L 21.0-28.0 mmol/L Arterial Blood Oxygen Saturation 94.7 94.0-98.0 % Arterial Blood Base Excess -10.8 L -2.0-3.0 mmol/L Arterial Blood Oxyhemoglobin 93.4 L 94.0-98.0 % Arterial Blood Carboxyhemoglobin 0.6 0.5-1.5 % Arterial Blood Methemoglobin 0.8 0.0-1.5 % Rafiq Test Yes Blood Gas Total Hemoglobin 14.80 12.0-16.0 g/dL Blood Gas Modality Room air FiO2 % 21.0 Differential Total Cells Counted 100.0 100 Neutrophils % (Manual) 97 H 37.0-80.0 Band Neutrophils % (Manual) 0 Lymphocytes % (Manual) 2 L 10.0-50.0 Monocytes % (Manual) 1 0-12 Eosinophils % (Manual) 0 0-7 Basophils % (Manual) 0 0.0-2.0 Metamyelocytes % (manual) 0 Myelocytes % (Manual) 0 Promyelocytes % (Manual) 0 Blast Cells % (Manual) 0 Reactive Lymphocytes 0 Platelet Estimate Adequate Hemoglobin A1c > 14.0 H <5.7 % A1C Serum Osmolality 392 H 278-298 mOsm/kg Phosphorus Level 4.3 2.4-5.1 mg/dL Beta-Hydroxybutyric Acid > 4.500 H < 0.4 mmol/L Urine Color Light-yellow Yellow Urine Clarity Clear Clear Urine pH 5.0 5.0-9.0 Urine Specific [place] 1.032 1.001-1.035 Urine Protein Trace H Negative Urine Ketones 2+ H Negative Urine Blood Trace H Negative /uL Urine Nitrite Negative Negative Urine Bilirubin Negative Negative Urine Urobilinogen Normal Negative mg/dL Urine Leukocyte Esterase Negative Negative /uL Urine RBC 4 0 - 4 /hpf Urine WBC 2 0 - 5 /hpf Urine Squamous Epithelial Cells Few <5 /hpf Urine Bacteria Few H None Seen /hpf Urine Hyaline Casts Few 0 - 2 /lpf Urine Mucus Few None Seen Urine Glucose 4+ H Normal mg/dL Troponin I High Sensitivity 31 </=34 ng/L Microbiology Date/Time Source Procedure Growth Status 08/06/24 15:31 Blood Blood Culture - Preliminary NO GROWTH AFTER 24 HOURS OF INCUBATION. Resulted 08/06/24 09:14 Urine - [facility] Urine Culture - Preliminary Resulted Assessment Dementia, Likely Alzheimer disease, she has advanced dementia Rule out normal-pressure hydrocephalus Gait disturbance Likely secondary to Alzheimer disease Rule out normal-pressure hydrocephalus Bladder/bowel incontinence Likely secondary to Alzheimer's disease Rule out normal-pressure hydrocephalus Migraine headache Metabolic encephalopathy secondary to diabetic ketoacidosis Diabetic ketoacidosis Metabolic acidosis Uncontrolled diabetes Elevated liver function test Plan/Recommendation Monitoring Supportive treatment ICU care Vitamin B12 Folic acid TSH Insulin Stabilize vitals p.r.n. Respiratory support p.r.n. Topiramate 50 mg b.i.d. for now Memantine 10 mg daily for now Rivastigmine 1.5 mg daily for now DVT prophylax GI prophylax Given the degree of dementia, gait disturbance, incontinence, I have not recommend aggressive treatment such a HYDROMETEOROLOGIST shunt if the patient does have normal- pressure hydrocephalus I have advised family to discuss with the patient family doctor RE: Necessity of the dementia treatment Progress: Poor Critical care time spent is 45 minutes This medical document was created using an electronic medical record system with [employer] dictation system. Although this document has been carefully reviewed, there may still be some phonetic and typographical errors. These areas are purely typographical due to imperfections of the software programs, and do not reflect any compromise in the patient's medical care. Plan discussed with: Spouse, Daughter, Other PAU GILLESPIE MD Aug 07, 2024 19:54
[2024-08-07] MEDS: MEROPENEM 1GM IVPB 50 ML IV SCH (21:46)
[2024-08-07 22:37] LABS: Potassium 3.7 mmol/L (3.5-5.1)
[2024-08-07 22:38] LABS: Anion Gap 5 (5-15); Carbon Dioxide 29 mmol/L (20-31)
[2024-08-07 22:43] LABS: BUN/Creatinine Ratio 19.5 (10.0-20.0); Blood Urea Nitrogen 16 mg/dL (9-23)
[2024-08-07 22:47] LABS: Calcium 8.7 mg/dL (8.7-10.4); Chloride 114 mmol/L (98-107); Glucose 214 mg/dL (74-106); Sodium 148 mmol/L (136-145)
[2024-08-08] MEDS: InsuLIN REG 1unit/0.01ml Soln (100units/ml) SC SCH ×2 (00:19→18:56)
[2024-08-08] MEDS: ACCU-CHEK COMFORT CURVE STRIP VI SCH ×2 (00:22→18:00)
[2024-08-08 00:31] VITALS: PULSE 98; RESP 13; O2SAT 100
[2024-08-08 02:19] LABS: Anion Gap 6 (5-15); Carbon Dioxide 29 mmol/L (20-31)
[2024-08-08 02:24] LABS: Blood Urea Nitrogen 12 mg/dL (9-23); Calcium 8.6 mg/dL (8.7-10.4); Chloride 111 mmol/L (98-107); Glucose 137 mg/dL (74-106); Potassium 2.9 mmol/L (3.5-5.1); Sodium 146 mmol/L (136-145)
--- NOTE | 2024-08-08 04:22 | DVH ---
INDICATION: elevated liver tests TECHNIQUE: Real time ultrasonography of the right upper quadrant was performed. COMPARISON: None FINDINGS: The liver appears mildly echogenic. The gallbladder is surgically absent. The common bile duct estim ated 0.5 cm. The pancreas is obscured. The right kidney measures 9.1 cm in length and appears unremar kable. IMPRESSION: Mildly echogenic appearance of the liver suggests fibrofatty hepatocellular disease, most commonly he patic steatosis.
[2024-08-08 07:29] LABS: BUN/Creatinine Ratio 14.6 (10.0-20.0)
--- NOTE | 2024-08-08 07:46 | DVH ---
EXAM: CT HEAD WITHOUT CONTRAST INDICATION: HEAD TRAUMA/SOMNOLENCE/ TECHNIQUE: CT of the head without intravenous contrast. Radiation Dose Information: CT Dose: CTDI volume is 62.03 mGy. Dose-length product is 994.26 mGy*cm The dose indicators for CT are the volume Computed Tomography (CT) Dose Index (CTDIvol) and the Dose Length Product (DLP), and are measured in units of mGy and mGy-cm, respectively. These indicators are not patient dose, but values generated from the CT scanner acquisition factors. The report includes radiation exposure data for exposures received during this examination. COMPARISON: CT CERVICAL WITHOUT CONTRAST on DOS: 08/06/24, CT HEAD WITHOUT CONTRAST on DOS: 08/06/24, CER VICAL WITHOUT CONTRAST on DOS: 01/11/22, HEAD WITHOUT CONTRAST on DOS: 01/11/22 FINDINGS: There is no evidence of acute intracranial hemorrhage, extra-axial collection, mass effect, midline s hift, herniation or hydrocephalus. The ventricles, sulci and cisterns are age appropriate. The majano-white differentiation is intact. Patchy periventricular and subcortical white matter hypoattenuation is nonspecific but may be related to small vessel ischemic disease. The visualized paranasal sinuses and mastoid air cells are clear. The surrounding soft tissues and osseous structures are unremarkable. IMPRESSION: No acute intracranial abnormality.
[2024-08-08 07:54] LABS: Basophils # (auto) 0 10 ^3/uL (0-0.2); Basophils % (auto) 0.3 % (0.0-2.0); Eosinophils # (auto) 0.2 10 ^3/uL (0-0.8); Eosinophils % (auto) 1.7 % (0.0-7.0); Hematocrit 41.5 % (36.0-46.0); Hemoglobin 13.8 g/dL (12.2-16.2); Lymphocytes # (auto) 2.3 10 ^3/uL (0.4-5.4); Lymphocytes % (auto) 20.1 % (10.0-50.0); Mean Corpuscular Hemoglobin 29.7 pg (28.0-32.0); Mean Corpuscular Hgb Conc. 33.2 g/dL (32.0-36.0); Mean Corpuscular Volume 89.6 fL (80.0-100.0); Monocytes # (auto) 0.5 10 ^3/uL (0-1.3); Monocytes % (auto) 4.7 % (0.0-12.0); Neutrophils # (auto) 8.3 10 ^3/uL (1.6-8.6); Neutrophils % (auto) 73.2 % (37.0-80.0); Platelet Count (auto) 154 10^3/uL (140-450); Red Blood Cells 4.63 10^6/uL (4.0-5.20); Red Cell Distribution Width 15.1 % (11.8-14.3); White Blood Cell 11.3 10^3/uL (4.4-10.8)
[2024-08-08 08:12] LABS: Albumin 3.4 g/dL (3.2-4.8); Anion Gap 7 (5-15); BUN/Creatinine Ratio 13.9 (10.0-20.0); Blood Urea Nitrogen 11 mg/dL (9-23); Calcium 8.7 mg/dL (8.7-10.4); Carbon Dioxide 30 mmol/L (20-31); Chloride 107 mmol/L (98-107); Magnesium 1.6 mg/dL (1.6-2.6); Sodium 144 mmol/L (136-145)
[2024-08-08 08:13] LABS: Bilirubin, Total 0.8 mg/dL (0.2-1.0)
[2024-08-08 08:15] LABS: Alanine Aminotransferase 528 U/L (7-40); Alkaline Phosphatase 148 U/L (46-116); Aspartate Aminotransferase 304 U/L (13-40); Glucose 165 mg/dL (74-106); Potassium 2.7 mmol/L (3.5-5.1); Total Protein 5.7 g/dL (5.7-8.2)
[2024-08-08] MEDS ORDERED: POTASSIUM EFFERVESENT TAB 25 MEQ PO ONE (08:45)
[2024-08-08] MEDS: POTASSIUM CHL 20MEQ/100ML 100 ML IV SCH (09:38)
--- NOTE | 2024-08-08 09:54 | DVHPN2 ---
Progress Note Date Seen: Aug 08, 2024 Medical Necessity Reason Pt with a Central, PICC or Fol: Yes The following are medically ne: Parnell Catheter Subjective Patient reports: Other Review of Systems: NEURO:Abnormal Objective vital signs Vital Sign Date Time Temp Pulse Resp B/P (MAP) Pulse Ox O2 Delivery O2 Flow Rate FiO2 08/08/24 08:00 101 20 121/58 (79) 96 08/08/24 06:00 97.4 97.4 08/08/24 00:31 Room Air* 0 21 Total Intake and Output 08/07/24 08/07/24 08/08/24 15:00 23:00 07:00 Intake Total 900 ml 854.25 ml 851 ml Output Total 725 ml 1800 ml Balance 900 ml 129.25 ml -949 ml medications Current Medications Medications Dose Ordered Sig/Dalton Route Start Time Stop Time Status Last Admin Dose Admin Ondansetron HCl 4 mg Q4HP PRN IV 08/06/24 13:30 Enoxaparin Sodium 40 mg DAILY SC 08/07/24 10:00 08/07/24 10:15 40 MG Acetaminophen 650 mg Q6HP PRN PO 08/06/24 13:30 Topiramate 50 mg BID PO 08/06/24 22:00 Patient Own Medication 1 tab DAILY PO 08/07/24 10:00 UNV Patient Own Medication 1 cap DAILY PO 08/07/24 10:00 UNV Patient Own Medication 1 cap BID PO 08/06/24 22:00 Patient Own Medication 1 cap DAILY PO 08/07/24 10:00 Memantine 10 mg DAILY PO 08/07/24 10:00 Meropenem 50 ml @ 17 mls/hr Q8HR IV 08/07/24 22:00 08/08/24 05:32 17 MLS/HR Pantoprazole Sodium 40 mg DAILY IV 08/08/24 10:00 Sodium Chloride 1,000 ml @ 100 mls/hr Q10H IV 08/07/24 16:00 08/08/24 02:02 100 MLS/HR Diagnostic Test (Pha) 1 strip IQ4HR 08/08/24 00:00 08/08/24 08:00 1 STRIP Insulin Human Regular IQ4HR SC 08/08/24 00:00 08/08/24 09:21 3 UNITS Dextrose 50 ml UD PRN IV 08/07/24 23:15 Potassium Chloride 100 ml @ 50 mls/hr Q2H IV 08/08/24 08:45 08/08/24 16:44 08/08/24 09:38 50 MLS/HR Examination: GENERAL:Abnormal, LUNGS:Normal, CVS:Normal, NEURO:Abnormal laboratory and microbiology Laboratory Tests 08/08/24 07:19 Test 08/08/24 07:19 Range/Units Serum Glucose 165 H 74-106 mg/dL Microbiology Date/Time Source Procedure Growth Status 08/06/24 15:31 Blood Blood Culture - Preliminary NO GROWTH AFTER 24 HOURS OF INCUBATION. Resulted 08/06/24 09:14 Urine - [facility] Urine Culture - Preliminary Resulted Problem List/Assessment/Plan Problem List/Assessment/Plan Acute kidney injury hemodynamically mediated in the setting of volume depletion No previous history of kidney disease Diabetic ketoacidosis Hypernatremia Hypokalemia Dementia Depression Altered mental state IVF electrolytes have normalized patient is still altered Potassium replacement IV If patient is unable to tolerate p.o. which is currently in the case then she may require some low-dose dextrose with hypotonic fluid Continue to monitor sugars Avoid hypotension Replace all electrolytes Plan discussed with: Spouse My Orders My Orders Orders - ALMA WILLINGHAM MD Procedure Category Date Status Time Sod Chl 0.45% (Sodium PHA 08/07/24 In Process Chloride 0.45% Via 16:00 Potassium Chl PHA 08/08/24 In Process 20meq/100ml 08:45 ALMA WILLINGHAM MD Aug 08, 2024 09:54
[2024-08-08 09:59] LABS: Lipase 70 U/L (12-53)
--- NOTE | 2024-08-08 10:53 | DVHPN2 ---
Progress Note - Dictate Date Seen: Aug 08, 2024 Medical Necessity Reason Pt with a Central, PICC or Fol: Yes The following are medically ne: Parnell Catheter Subjective Patient was in ER bed 18 Patient is still altered but more responsive Electrolytes abnormalities are being corrected Patient still has a low potassium today likely related to her acidosis yesterday Leukocytosis is improving ; UA was negative Liver enzymes are trending down vital signs Vital Sign Date Time Temp Pulse Resp B/P (MAP) Pulse Ox O2 Delivery O2 Flow Rate FiO2 08/08/24 08:00 101 20 121/58 (79) 96 08/08/24 06:00 97.4 97.4 08/08/24 00:31 Room Air* 0 21 Total Intake and Output 08/07/24 08/07/24 08/08/24 15:00 23:00 07:00 Intake Total 900 ml 854.25 ml 851 ml Output Total 725 ml 1800 ml Balance 900 ml 129.25 ml -949 ml medications Current Medications Medications Dose Ordered Sig/Dalton Route Start Time Stop Time Status Last Admin Dose Admin Ondansetron HCl 4 mg Q4HP PRN IV 08/06/24 13:30 Enoxaparin Sodium 40 mg DAILY SC 08/07/24 10:00 08/07/24 10:15 40 MG Acetaminophen 650 mg Q6HP PRN PO 08/06/24 13:30 Topiramate 50 mg BID PO 08/06/24 22:00 Patient Own Medication 1 tab DAILY PO 08/07/24 10:00 UNV Patient Own Medication 1 cap DAILY PO 08/07/24 10:00 UNV Patient Own Medication 1 cap BID PO 08/06/24 22:00 Patient Own Medication 1 cap DAILY PO 08/07/24 10:00 Memantine 10 mg DAILY PO 08/07/24 10:00 Meropenem 50 ml @ 17 mls/hr Q8HR IV 08/07/24 22:00 08/08/24 05:32 17 MLS/HR Pantoprazole Sodium 40 mg DAILY IV 08/08/24 10:00 Sodium Chloride 1,000 ml @ 100 mls/hr Q10H IV 08/07/24 16:00 08/08/24 02:02 100 MLS/HR Diagnostic Test (Pha) 1 strip IQ4HR 08/08/24 00:00 08/08/24 08:00 1 STRIP Insulin Human Regular IQ4HR SC 08/08/24 00:00 08/08/24 09:21 3 UNITS Dextrose 50 ml UD PRN IV 08/07/24 23:15 Potassium Chloride 100 ml @ 50 mls/hr Q2H IV 08/08/24 08:45 08/08/24 16:44 08/08/24 09:38 50 MLS/HR objective General examination- lying in bed with eyes closed however did show facial expression of pain arousable HEENT: PEERLA, EOMI Chest: S1-S2 audible, rate and rhythm regular, no murmur Lung: CTAB, no wheeze or rhonchi Abdomen: Soft slightly distended hypoactive bowel sounds Lower extremity: no leg edema Neurological: Appears to be nonfocal laboratory and microbiology Laboratory Tests 08/08/24 07:19 Test 08/08/24 07:19 Range/Units Serum Glucose 165 H 74-106 mg/dL RUQ USG IMPRESSION: Mildly echogenic appearance of the liver suggests fibrofatty hepatocellular disease, most commonly hepatic steatosis. Problems(with codes): (1) Hypokalemia (2) Fall at home (3) DKA, type 2 (4) Hepatorenal failure (5) Sepsis (6) Dementia (7) Hepatic steatosis (8) Elevated liver enzymes (9) Shock liver Prognosis Plan Continue IV fluid hydration We can start her on IV Clinimix at 42 mL/hour Patient can undergo swallow evaluation and if she passes that then we will advance her diet Continue IV antibiotics Replace potassium Continue to monitor labs Supportive care Plan discussed with: Daughter, Other (Annita Lawson) DEISI MATIAS MD Aug 08, 2024 10:53
--- NOTE | 2024-08-08 11:15 | DVHPN2 ---
Subjective more alert/awake todfay/looks rested and cheerful Changes from previous H/P or p: No Changes Objective Vitals Vital Signs Date Time Temp Pulse Resp B/P (MAP) Pulse Ox O2 Delivery O2 Flow Rate FiO2 08/08/24 08:00 101 20 121/58 (79) 96 08/08/24 06:00 97.4 97.4 08/08/24 00:31 Room Air* 0 21 Intake/Output Intake and Output 08/08/24 07:00 Intake Total 2605.25 ml Output Total 2525 ml Balance 80.25 ml Intake Oral 0 ml IV Total 2605.25 ml Output Urine Total 2525 ml General Appearance: Alert, Oriented X3, Cooperative, No acute distress Lungs: Clear to auscultation Cardiovascular: Regular rate, Normal S1, Normal S2 Abdomen: Normal bowel sounds, Soft, No tenderness Musculoskeletal: Normal sensory function, Normal motor function Neuro: Normal speech, Strength at 5/5 X4 ext, Sensation intact, Cranial nerves 3-12 NL, Other (answers simple questions appropriately) Medications Current Medications Medications Dose Ordered Sig/Dalton Route Start Time Stop Time Status Last Admin Dose Admin Ondansetron HCl 4 mg Q4HP PRN IV 08/06/24 13:30 Enoxaparin Sodium 40 mg DAILY SC 08/07/24 10:00 08/07/24 10:15 40 MG Acetaminophen 650 mg Q6HP PRN PO 08/06/24 13:30 Topiramate 50 mg BID PO 08/06/24 22:00 Patient Own Medication 1 tab DAILY PO 08/07/24 10:00 UNV Patient Own Medication 1 cap DAILY PO 08/07/24 10:00 UNV Patient Own Medication 1 cap BID PO 08/06/24 22:00 Patient Own Medication 1 cap DAILY PO 08/07/24 10:00 Memantine 10 mg DAILY PO 08/07/24 10:00 Meropenem 50 ml @ 17 mls/hr Q8HR IV 08/07/24 22:00 08/08/24 05:32 17 MLS/HR Pantoprazole Sodium 40 mg DAILY IV 08/08/24 10:00 Sodium Chloride 1,000 ml @ 100 mls/hr Q10H IV 08/07/24 16:00 08/08/24 02:02 100 MLS/HR Diagnostic Test (Pha) 1 strip IQ4HR 08/08/24 00:00 08/08/24 08:00 1 STRIP Insulin Human Regular IQ4HR SC 08/08/24 00:00 08/08/24 09:21 3 UNITS Dextrose 50 ml UD PRN IV 08/07/24 23:15 Potassium Chloride 100 ml @ 50 mls/hr Q2H IV 08/08/24 08:45 08/08/24 16:44 08/08/24 09:38 50 MLS/HR Laboratory Results Laboratory Tests 08/08/24 07:19 Chemistry Test 08/07/24 13:55 08/07/24 18:35 08/07/24 22:02 08/08/24 01:55 Calcium Level 8.6 mg/dL (8.7-10.4) L 8.8 mg/dL (8.7-10.4) 8.7 mg/dL (8.7-10.4) 8.6 mg/dL (8.7-10.4) L Magnesium Level 1.9 mg/dL (1.6-2.6) Test 08/08/24 07:19 Albumin 3.4 g/dL (3.2-4.8) Calcium Level 8.7 mg/dL (8.7-10.4) Magnesium Level 1.6 mg/dL (1.6-2.6) Total Protein 5.7 g/dL (5.7-8.2) Lipid panel Test 08/08/24 07:19 Lipase 70 U/L (12-53) H LFT Test 08/08/24 07:19 Alanine Aminotransferase (ALT) 528 U/L (7-40) H Alkaline Phosphatase 148 U/L (46-116) H Aspartate Amino Transferase (AST) 304 U/L (13-40) H Total Bilirubin 0.8 mg/dL (0.2-1.0) HgA1c, TSH Test 08/07/24 18:35 Thyroid Stimulating Hormone (TSH) 1.77 uIU/mL (0.55-4.78) Urinalysis Test 08/06/24 09:14 Urine Color Light-yellow (Yellow) Urine Clarity Clear (Clear) Urine pH 5.0 (5.0-9.0) Urine Specific [place] 1.032 (1.001-1.035) Urine Protein Trace (Negative) H Urine Ketones 2+ (Negative) H Urine Blood Trace /uL (Negative) H Urine Nitrite Negative (Negative) Urine Bilirubin Negative (Negative) Urine Urobilinogen Normal mg/dL (Negative) Urine Leukocyte Esterase Negative /uL (Negative) Urine RBC 4 /hpf (0 - 4) Urine WBC 2 /hpf (0 - 5) Urine Squamous Epithelial Cells Few /hpf (<5) Urine Bacteria Few /hpf (None Seen) H Urine Hyaline Casts Few /lpf (0 - 2) Urine Mucus Few (None Seen) Urine Glucose 4+ mg/dL (Normal) H Microbiology Microbiology Date/Time Source Procedure Growth Status 08/07/24 08:37 Urine - Catheterized Urine Culture - Preliminary Resulted 08/06/24 15:31 Blood Blood Culture - Preliminary NO GROWTH AFTER 24 HOURS OF INCUBATION. Resulted Assessment/Plan Assessment/Plan sepsis- improved head trauma- initial head ct is negative/? nph dka- resolved/sugars are better hyponatremia- secondary to dka and dehydration improved dementia- stable gerd- stable awaiting swallowing evaluation hypokalemia- replaced by nephrology Plan discussed with: Other My Orders Orders - CARLOS MUNOZ MD Procedure Category Date Status Time Meropenem 1gm Ivpb PHA 08/07/24 In Process (Merrem 1gm/ Ns) 22:00 *Consult Dr. Persaud CONS 08/07/24 Transmitted [place] 13:55 Pantoprazole PHA 08/08/24 In Process (Protonix) 10:[address] 08/08/24 Resulted 08:00 Date of Service: Aug 08, 2024 Billing Provider: CARLOS MUNOZ MD Common Visit Codes: [id number] INP/OBS CARE(HIGH) CARLOS MUNOZ MD Aug 08, 2024 11:15
[2024-08-08] MEDS: PANTOPRAZOLE 40 MG/10 ML VIAL INJ IV SCH (11:25)
[2024-08-08] MEDS ORDERED: DEXTROSE (50%) 50ML SYRG IV SCH (13:30)
[2024-08-08] MEDS: AMINO ACID INFUSION IN D5W 1,000 ML IV SCH (21:54)
[2024-08-09 07:43] LABS: Albumin 3.3 g/dL (3.2-4.8); Anion Gap 7 (5-15); BUN/Creatinine Ratio 15.2 (10.0-20.0); Bilirubin, Total 0.8 mg/dL (0.2-1.0); Blood Urea Nitrogen 12 mg/dL (9-23); Carbon Dioxide 27 mmol/L (20-31); Chloride 105 mmol/L (98-107); Magnesium 1.7 mg/dL (1.6-2.6); Potassium 3.6 mmol/L (3.5-5.1); Sodium 139 mmol/L (136-145)
[2024-08-09 07:50] LABS: Alanine Aminotransferase 351 U/L (7-40); Alkaline Phosphatase 136 U/L (46-116); Aspartate Aminotransferase 108 U/L (13-40); Glucose 258 mg/dL (74-106); Phosphorus 1.3 mg/dL (2.4-5.1); Total Protein 5.5 g/dL (5.7-8.2); Triglycerides 158 mg/dL (< 150)
[2024-08-09 07:59] LABS: Basophils # (auto) 0 10 ^3/uL (0-0.2); Basophils % (auto) 0.4 % (0.0-2.0); Eosinophils # (auto) 0.2 10 ^3/uL (0-0.8); Eosinophils % (auto) 2.2 % (0.0-7.0); Hematocrit 40.8 % (36.0-46.0); Hemoglobin 13.7 g/dL (12.2-16.2); Lymphocytes # (auto) 1.6 10 ^3/uL (0.4-5.4); Lymphocytes % (auto) 20.2 % (10.0-50.0); Mean Corpuscular Hemoglobin 30.1 pg (28.0-32.0); Mean Corpuscular Hgb Conc. 33.5 g/dL (32.0-36.0); Mean Corpuscular Volume 89.7 fL (80.0-100.0); Monocytes # (auto) 0.3 10 ^3/uL (0-1.3); Monocytes % (auto) 4.4 % (0.0-12.0); Neutrophils # (auto) 5.6 10 ^3/uL (1.6-8.6); Neutrophils % (auto) 72.8 % (37.0-80.0); Platelet Count (auto) 135 10^3/uL (140-450); Red Blood Cells 4.55 10^6/uL (4.0-5.20); White Blood Cell 7.7 10^3/uL (4.4-10.8)
[2024-08-09 08:06] VITALS: PULSE 82; RESP 14; O2SAT 99
[2024-08-09 08:51] LABS: Hepatitis B Surface Antibody Negative (Negative)
[2024-08-09 09:07] LABS: Hepatitis B Surface Antigen Negative (Negative)
[2024-08-09 09:17] LABS: Hepatitis B Core IgM Negative (Negative)
[2024-08-09 09:20] LABS: Hepatitis C Antibody Negative (Negative)
[2024-08-09 09:23] LABS: Hepatitis A Total Antibody Positive (Negative)
[2024-08-09 11:18] LABS: Free T4 (Free Thyroxine) 0.9 ng/dL (0.89-1.76)
[2024-08-09 11:20] LABS: Folate (Folic Acid) 13.08 ng/mL (>5.38)
--- NOTE | 2024-08-09 13:57 | ECG ---
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
[2024-08-09] MEDS: POTASSIUM PHOSPHATE 26.4 MEQ in SODIUM CHL 0.9% 100 ML IV ONE (15:15)
--- NOTE | 2024-08-09 15:56 | DVHPN2 ---
Progress Note Date Seen: Aug 09, 2024 Medical Necessity Reason Pt with a Central, PICC or Fol: Yes The following are medically ne: Parnell Catheter Subjective Patient reports: No new complaints Objective vital signs Vital Sign Date Time Temp Pulse Resp B/P (MAP) Pulse Ox O2 Delivery O2 Flow Rate FiO2 08/09/24 14:00 104 12 153/91 (111) 92 08/09/24 08:06 Room Air* 0 21 08/09/24 00:45 98.9 98.9 Total Intake and Output 08/08/24 08/08/24 08/09/24 15:00 23:00 07:00 Intake Total 50 ml Output Total 1200 ml Balance 50 ml -1200 ml medications Current Medications Medications Dose Ordered Sig/Dalton Route Start Time Stop Time Status Last Admin Dose Admin Ondansetron HCl 4 mg Q4HP PRN IV 08/06/24 13:30 Enoxaparin Sodium 40 mg DAILY SC 08/07/24 10:00 08/09/24 10:00 40 MG Acetaminophen 650 mg Q6HP PRN PO 08/06/24 13:30 Topiramate 50 mg BID PO 08/06/24 22:00 Patient Own Medication 1 tab DAILY PO 08/07/24 10:00 UNV Patient Own Medication 1 cap DAILY PO 08/07/24 10:00 UNV Patient Own Medication 1 cap BID PO 08/06/24 22:00 Patient Own Medication 1 cap DAILY PO 08/07/24 10:00 Memantine 10 mg DAILY PO 08/07/24 10:00 Meropenem 50 ml @ 17 mls/hr Q8HR IV 08/07/24 22:00 08/09/24 14:00 17 MLS/HR Pantoprazole Sodium 40 mg DAILY IV 08/08/24 10:00 08/09/24 10:00 40 MG Sodium Chloride 1,000 ml @ 100 mls/hr Q10H IV 08/07/24 16:00 08/09/24 08:00 100 MLS/HR Diagnostic Test (Pha) 1 strip Q6HR 08/08/24 18:00 08/09/24 12:09 1 STRIP Insulin Human Regular FOLLOW SLIDING SCALE Q6HR SC 08/08/24 18:00 08/09/24 12:06 4 UNITS Dextrose 50 ml UD IV 08/08/24 13:30 Amino Acids 1,000 ml @ 41 mls/hr DAILY@2200 IV 08/08/24 22:00 08/08/24 21:54 41 MLS/HR laboratory and microbiology Laboratory Tests 08/09/24 06:39 Test 08/09/24 06:39 Range/Units Serum Glucose 258 H 74-106 mg/dL Microbiology Date/Time Source Procedure Growth Status 08/07/24 08:37 Urine - Catheterized Urine Culture - Final Complete 08/06/24 15:31 Blood Blood Culture - Preliminary NO GROWTH AFTER 72 HOURS OF INCUBATION. Resulted Problem List/Assessment/Plan Problem List/Assessment/Plan Acute kidney injury hemodynamically mediated in the setting of volume depletion No previous history of kidney disease Diabetic ketoacidosis Hypernatremia Hypokalemia Dementia Depression Altered mental state recs Renal parameters have improved I will sign off this case please re consult if needed Plan discussed with: Patient HEATHER WRIGHT MD Aug 09, 2024 15:56
--- NOTE | 2024-08-09 16:44 | DVHPN2 ---
Progress Note Date Seen: Aug 09, 2024 Resident Creating Document: NORMA STEEN RESIDENT Medical Necessity Reason Pt with a Central, PICC or Fol: Yes The following are medically ne: Parnell Catheter Medical Necessity Reason Still altered Subjective Review of Systems Patient seen and examined today. She is in ER bed 18. At time of my visit, patient is still altered but more responsive compared to when she first presented to the ED. She is able to say no pain in her abdomen, but she could not tell me where she is or why she is here. Leukocytosis is improved, WBC: 7.7. UA was negative Liver enzymes are further trending downwards Objective vital signs Vital Sign Date Time Temp Pulse Resp B/P (MAP) Pulse Ox O2 Delivery O2 Flow Rate FiO2 08/09/24 14:00 104 12 153/91 (111) 92 08/09/24 08:06 Room Air* 0 21 08/09/24 00:45 98.9 98.9 Total Intake and Output 08/08/24 08/08/24 08/09/24 15:00 23:00 07:00 Intake Total 50 ml Output Total 1200 ml Balance 50 ml -1200 ml medications Current Medications Medications Dose Ordered Sig/Dalton Route Start Time Stop Time Status Last Admin Dose Admin Ondansetron HCl 4 mg Q4HP PRN IV 08/06/24 13:30 Enoxaparin Sodium 40 mg DAILY SC 08/07/24 10:00 08/09/24 10:00 40 MG Acetaminophen 650 mg Q6HP PRN PO 08/06/24 13:30 Topiramate 50 mg BID PO 08/06/24 22:00 Patient Own Medication 1 tab DAILY PO 08/07/24 10:00 UNV Patient Own Medication 1 cap DAILY PO 08/07/24 10:00 UNV Patient Own Medication 1 cap BID PO 08/06/24 22:00 Patient Own Medication 1 cap DAILY PO 08/07/24 10:00 Memantine 10 mg DAILY PO 08/07/24 10:00 Meropenem 50 ml @ 17 mls/hr Q8HR IV 08/07/24 22:00 08/09/24 14:00 17 MLS/HR Pantoprazole Sodium 40 mg DAILY IV 08/08/24 10:00 08/09/24 10:00 40 MG Sodium Chloride 1,000 ml @ 100 mls/hr Q10H IV 08/07/24 16:00 08/09/24 08:00 100 MLS/HR Diagnostic Test (Pha) 1 strip Q6HR 08/08/24 18:00 08/09/24 12:09 1 STRIP Insulin Human Regular FOLLOW SLIDING SCALE Q6HR SC 08/08/24 18:00 08/09/24 12:06 4 UNITS Dextrose 50 ml UD IV 08/08/24 13:30 Amino Acids 1,000 ml @ 41 mls/hr DAILY@2200 IV 08/08/24 22:00 08/08/24 21:54 41 MLS/HR Examination General examination- Not in acute distress, altered, but smiling a lot HEENT: PEERLA, no acute nasal discharge Chest: S1-S2 audible, rate and rhythm regular, no murmur Lung: CTAB, no wheeze or rhonchi Abdomen: Soft slightly distended hypoactive bowel sounds, mild tenderness in palpation Musculoskeletal: no acute joint swelling or tenderness Lower extremity: no leg edema, soft muscle Neurological: Appears to be nonfocal Psychiatry-- altered Skin- no acute rash or purpura laboratory and microbiology Laboratory Tests 08/09/24 06:39 Test 08/09/24 06:39 Range/Units Serum Glucose 258 H 74-106 mg/dL Microbiology Date/Time Source Procedure Growth Status 08/07/24 08:37 Urine - Catheterized Urine Culture - Final Complete 08/06/24 15:31 Blood Blood Culture - Preliminary NO GROWTH AFTER 72 HOURS OF INCUBATION. Resulted Problem List/Assessment/Plan Problem List/Assessment/Plan Hypoxic liver injury --> Liver enzymes trending downward --> likely secondary to underlying DKA/dehydration --> Recommend 1/2 NS 100ml/hr --> Manage the underlying cause --> Hep B and C antibody: Negative Hepatitis A positive --> monitor liver enzymes closely Hepatic steatosis Diabetic ketoacidosis --> anion gap metabolic acidosis Gap closed now --> Serum sugar 780 --> hgb > 14.0 --> Insulin --> adequate hydration --> Accu checks --> replace potassium Hypokalemia--> IMPROVED --> K: 3.3--> 3.6 --> Monitor EKG Lactic acidosis --> Bicarbonate 1 amp/ liter fluid Dehydration 1/2 NS 100ml/hr ADONIS secondary to VMN --> adequate hydration Hypernatremia--> Improved Metabolic encephalopathy --> in the setting of DKA/hypernatremia --> manage the underlying condition Severe protein calorie malnutrition --> BMI of 18.9 --> muscle wasting Dementia Depression PLAN Continue IV fluid hydration We can start her on IV Clinimix at 42 mL/hour Patient can undergo swallow evaluation and if she passes that then we will advance her diet Continue IV antibiotics Continue to monitor labs Goal of care discussed for more than 35 minute Case and plan discussed with Dr. Knight Thank you for allowing us to participate in the care of this patient. Please call if you have any questions or concerns. Plan discussed with: Other (Nurse) NORMA STEEN RESIDENT Aug 09, 2024 16:44
--- NOTE | 2024-08-09 19:09 | DVHPNRES ---
Progress Note Date Seen: Aug 10, 2024 Resident Creating Document: VIMAL MATTSON RESIDENT Medical Necessity Reason Pt with a Central, PICC or Fol: Yes The following are medically ne: Parnell Catheter Subjective Review of Systems Patient seen and examined at bedside. She is alert but confused As per family, patient is at her baseline neurological status. Review of system could not be done as patient is confused Objective vital signs Vital Sign Date Time Temp Pulse Resp B/P (MAP) Pulse Ox O2 Delivery O2 Flow Rate FiO2 08/09/24 14:00 104 12 153/91 (111) 92 08/09/24 08:06 Room Air* 0 21 08/09/24 00:45 98.9 98.9 Total Intake and Output 08/08/24 08/08/24 08/09/24 15:00 23:00 07:00 Intake Total 50 ml Output Total 1200 ml Balance 50 ml -1200 ml medications Current Medications Medications Dose Ordered Sig/Dalton Route Start Time Stop Time Status Last Admin Dose Admin Ondansetron HCl 4 mg Q4HP PRN IV 08/06/24 13:30 Enoxaparin Sodium 40 mg DAILY SC 08/07/24 10:00 08/09/24 10:00 40 MG Acetaminophen 650 mg Q6HP PRN PO 08/06/24 13:30 Topiramate 50 mg BID PO 08/06/24 22:00 Patient Own Medication 1 tab DAILY PO 08/07/24 10:00 UNV Patient Own Medication 1 cap DAILY PO 08/07/24 10:00 UNV Patient Own Medication 1 cap BID PO 08/06/24 22:00 Patient Own Medication 1 cap DAILY PO 08/07/24 10:00 Memantine 10 mg DAILY PO 08/07/24 10:00 Meropenem 50 ml @ 17 mls/hr Q8HR IV 08/07/24 22:00 08/09/24 14:00 17 MLS/HR Pantoprazole Sodium 40 mg DAILY IV 08/08/24 10:00 08/09/24 10:00 40 MG Diagnostic Test (Pha) 1 strip Q6HR 08/08/24 18:00 08/09/24 12:09 1 STRIP Insulin Human Regular FOLLOW SLIDING SCALE Q6HR SC 08/08/24 18:00 08/09/24 12:06 4 UNITS Dextrose 50 ml UD IV 08/08/24 13:30 Examination Examination General Appearance: Confused HEENT: EOMI Respiratory: Clear to auscultation, Normal air movement Cardiovascular: Regular rate, Normal S1, Normal S2 Abdominal: Normal bowel sounds Extremities: No cyanosis, No edema, Normal pulses, No tenderness/swelling Skin: No rashes, No breakdown Neuro: Confused laboratory and microbiology Laboratory Tests 08/09/24 06:39 Test 08/09/24 06:39 Range/Units Serum Glucose 258 H 74-106 mg/dL Microbiology Date/Time Source Procedure Growth Status 08/07/24 08:37 Urine - Catheterized Urine Culture - Final Complete 08/06/24 15:31 Blood Blood Culture - Preliminary NO GROWTH AFTER 72 HOURS OF INCUBATION. Resulted Labs and/or images reviewed: Labs reviewed by me, Image(s) reviewed by me Problem List/Assessment/Plan Problem List/Assessment/Plan Assessment/plan # metabolic encephalopathy due to sepsis, over baseline dementia -head CT # Alzheimer's disease -neurology on board #?NPH -neurology on board # ?sepsis to UTI -currently on meropenem #UTI -urine culture # mechanical fall Head CT # hypokalemia Resolved # transaminitis Monitor # DKA Resolved Started diet per swallow evaluation Discontinue Clinimix # diabetes mellitus type 2 -basal bolus regimen # history of depression #DVT prophylaxis -Low dose Lovenox 40mg SC daily Case discussion with Dr. Clancy Code status, full code Plan discussed with: Patient, Other Date of Service: Aug 10, 2024 Billing Provider: BARBARA CLANCY MD Common Visit Codes: [id number] INP/OBS CARE(HIGH) VIMAL MATTSON RESIDENT Aug 09, 2024 19:09 BARBARA CLANCY MD Aug 10, 2024 20:17
--- NOTE | 2024-08-09 19:53 | DVHPN2 ---
Progress Note - Dictate Date Seen: Aug 09, 2024 Medical Necessity Reason Pt with a Central, PICC or Fol: Yes The following are medically ne: Parnell Catheter Subjective Ms. Vilchis is a 74 years old right-handed female with a history of prediabetes, dementia, depression, migraine headache, the patient was brought to the [facility] on 08/06/2024 with a chief company of fall injury. I have seen and examined the patient, I have talked to her , daughter, and her nurse. She was doing fine, awake, she talks a little bit. Overall looks better Again, her family confirmed the history obtained two days ago, I have spent time discussing about her poor prognosis, and the likely poor responsiveness to NEW CAR INSPECTOR shunt if the patient was does have NPH Urinalysis, 08/06/2024: WBC: 2, urine leukocyte esterase: Negative ABG, 08/06/2023: Metabolic acidosis, hypoxia, WBC/HB/PLT/MCV, 08/07/2024: 21.1/13.5/214/90.6, 08/09/2024: 7.7/13.7/135/89.7 Na, 08/07/2024: 08/06/2024: 162, 160, 153, 150 K, 08/07/2024: 3.3, 3.6 Anion gap, 08/06/2024: 22 BUN/CR, 08/06/2024: 57/2.13, 08/07/2024: 27/0.94, 18/0.93 Glucose, 08/06/2024: 780, 679, 442, 292, 08/07/2024:281 Lactic acid, 08/06/2024: 2.9, 2.8 Beta hydroxide beauty uric acid, 08/06/2024, >4.5 HGB A1c, 08/06/2024: > 14 TBI/AST/ALT/AP, 08/07/2024: 0.4/372/582/136 Hepatitis panel, 08/07/2024: Vitamin B12, 08/08/2024: 1050 Folic acid, 08/08/2024: 13.08 TSH, 08/07/2024: 1.77 CT head, 01/11/2022: No intracranial hemorrhage. MRI is recommended if clinical symptoms persist. (Temporal lobe atrophy can be suggestive of the spectrum of mild cognitive impairment, Alzheimer's disease. Clinical correlation is suggested.) CT head, 08/06/2023: 1. No evidence of acute intracranial abnormality. 2. Left frontal scalp swelling. 3. Ventriculomegaly, which may be related to volume loss. A component of communicating hydrocephalus not excluded CT C-spine, 08/06/2024: 1. No evidence of acute cervical spine fracture or traumatic malalignment vital signs Vital Sign Date Time Temp Pulse Resp B/P (MAP) Pulse Ox O2 Delivery O2 Flow Rate FiO2 08/09/24 14:00 104 12 153/91 (111) 92 08/09/24 08:06 Room Air* 0 21 08/09/24 00:45 98.9 98.9 Total Intake and Output 08/08/24 08/08/24 08/09/24 15:00 23:00 07:00 Intake Total 50 ml Output Total 1200 ml Balance 50 ml -1200 ml medications Current Medications Medications Dose Ordered Sig/Dalton Route Start Time Stop Time Status Last Admin Dose Admin Ondansetron HCl 4 mg Q4HP PRN IV 08/06/24 13:30 Enoxaparin Sodium 40 mg DAILY SC 08/07/24 10:00 08/09/24 10:00 40 MG Acetaminophen 650 mg Q6HP PRN PO 08/06/24 13:30 Topiramate 50 mg BID PO 08/06/24 22:00 Patient Own Medication 1 tab DAILY PO 08/07/24 10:00 UNV Patient Own Medication 1 cap DAILY PO 08/07/24 10:00 UNV Patient Own Medication 1 cap BID PO 08/06/24 22:00 Patient Own Medication 1 cap DAILY PO 08/07/24 10:00 Memantine 10 mg DAILY PO 08/07/24 10:00 Meropenem 50 ml @ 17 mls/hr Q8HR IV 08/07/24 22:00 08/09/24 14:00 17 MLS/HR Pantoprazole Sodium 40 mg DAILY IV 08/08/24 10:00 08/09/24 10:00 40 MG Diagnostic Test (Pha) 1 strip Q6HR 08/08/24 18:00 08/09/24 12:09 1 STRIP Insulin Human Regular FOLLOW SLIDING SCALE Q6HR SC 08/08/24 18:00 08/09/24 12:06 4 UNITS Dextrose 50 ml UD IV 08/08/24 13:30 objective General: the patient is well developed and nourished. No acute distress. HEENT: Bruise in the left forehead, otherwise unremarkable, neck is supple, no carotid bruits. No mass. MENTAL STATUS: Awake, she may only oriented to herself SPEECH, LANGUAGE, HIGHER CORTICAL FUNCTION: She does not vocalize CRANIAL NERVES: Pupils are equal, round and reactive. EOMs full and conjugate. No evoked, nystagmus. Facial sensation intact in all three divisions bilaterally. Mandibular strength intact. Facial muscles symmetrical and strength intact. SENSATION: Sensation to touch and pinprick is normal. MOTOR: Normal tone in the upper and lower extremity. Normal muscle bulk. No fasciculations. No abnormal movements or posturing. She moves the arms and legs REFLEXES: Deep tendon reflexes are symmetrical. No pathological reflexes. CEREBELLAR/COORDINATION: Deferred GAIT/STATION: deferred laboratory and microbiology Laboratory Tests 08/09/24 06:39 Test 08/09/24 06:39 Range/Units Serum Glucose 258 H 74-106 mg/dL Problem List Dementia, Likely Alzheimer disease, she has advanced dementia Rule out normal-pressure hydrocephalus Gait disturbance Likely secondary to Alzheimer disease Rule out normal-pressure hydrocephalus Bladder/bowel incontinence Likely secondary to Alzheimer's disease Rule out normal-pressure hydrocephalus Migraine headache Metabolic encephalopathy secondary to diabetic ketoacidosis Diabetic ketoacidosis Metabolic acidosis Uncontrolled diabetes Elevated liver function test Assessment/Plan Monitoring Supportive treatment Telemetry Topiramate 50 mg b.i.d. for now Memantine 10 mg daily for now Rivastigmine 1.5 mg daily for now DVT prophylax GI prophylax Given the degree of dementia, gait disturbance, incontinence, I do not recommend aggressive treatment such a NEW CAR INSPECTOR shunt if the patient does have normal-pressure hydrocephalus I have advised family to discuss with the patient family doctor RE: Necessity of the dementia treatment This medical document was created using an electronic medical record system with [employer] system. Although this document has been carefully reviewed, there may still be some phonetic and typographical errors. These areas are purely typographical due to imperfections of the software programs, and do not reflect any compromise in the patient's medical care. Prognosis poor Plan discussed with: Spouse, Daughter, Other Total Time (mins): 40 PAU GILLESPIE MD Aug 09, 2024 19:53
[2024-08-10 06:38] LABS: Albumin 3.4 g/dL (3.2-4.8); Anion Gap 8 (5-15); BUN/Creatinine Ratio 15.6 (10.0-20.0); Blood Urea Nitrogen 12 mg/dL (9-23); Calcium 9.7 mg/dL (8.7-10.4); Carbon Dioxide 26 mmol/L (20-31); Glucose 103 mg/dL (74-106); Magnesium 1.8 mg/dL (1.6-2.6); Potassium 3.8 mmol/L (3.5-5.1); Sodium 143 mmol/L (136-145)
[2024-08-10 06:39] LABS: Bilirubin, Total 0.5 mg/dL (0.2-1.0); Phosphorus 2.4 mg/dL (2.4-5.1); Total Protein 5.8 g/dL (5.7-8.2)
[2024-08-10 06:44] LABS: Alanine Aminotransferase 259 U/L (7-40); Alkaline Phosphatase 130 U/L (46-116); Aspartate Aminotransferase 60 U/L (13-40); Chloride 109 mmol/L (98-107)
[2024-08-10 07:04] LABS: Basophils # (auto) 0 10 ^3/uL (0-0.2); Basophils % (auto) 0.3 % (0.0-2.0); Eosinophils # (auto) 0.2 10 ^3/uL (0-0.8); Hematocrit 40.2 % (36.0-46.0); Hemoglobin 13.8 g/dL (12.2-16.2); Lymphocytes # (auto) 2.1 10 ^3/uL (0.4-5.4); Lymphocytes % (auto) 24.1 % (10.0-50.0); Mean Corpuscular Hemoglobin 30.4 pg (28.0-32.0); Mean Corpuscular Hgb Conc. 34.2 g/dL (32.0-36.0); Mean Corpuscular Volume 88.7 fL (80.0-100.0); Monocytes # (auto) 0.7 10 ^3/uL (0-1.3); Monocytes % (auto) 8.8 % (0.0-12.0); Neutrophils # (auto) 5.5 10 ^3/uL (1.6-8.6); Neutrophils % (auto) 64.8 % (37.0-80.0); Nucleated Red Blood Cells % 0.2 %; Platelet Count (auto) 143 10^3/uL (140-450); Red Blood Cells 4.53 10^6/uL (4.0-5.20); White Blood Cell 8.5 10^3/uL (4.4-10.8)
[2024-08-10 09:39] VITALS: PULSE 86; RESP 12; O2SAT 98
--- NOTE | 2024-08-10 11:48 | DVHPN2 ---
Progress Note - Dictate Date Seen: Aug 10, 2024 Medical Necessity Reason Pt with a Central, PICC or Fol: Yes The following are medically ne: Parnell Catheter Subjective Ms. Vilchis is a 74 years old right-handed female with a history of prediabetes, dementia, depression, migraine headache, the patient was brought to the [facility] on 08/06/2024 with a chief company of fall injury. I have seen and examined the patient, I have talked to her nurse. She was doing fine, socially appropriate, she talks and is able to answer simple questions, she may only oriented to herself Elevated Liver function tests are improving Urinalysis, 08/06/2024: WBC: 2, urine leukocyte esterase: Negative ABG, 08/06/2023: Metabolic acidosis, hypoxia, WBC/HB/PLT/MCV, 08/07/2024: 21.1/13.5/214/90.6, 08/09/2024: 7.7/13.7/135/89.7 Na, 08/07/2024: 08/06/2024: 162, 160, 153, 150 K, 08/07/2024: 3.3, 3.6 Anion gap, 08/06/2024: 22 BUN/CR, 08/06/2024: 57/2.13, 08/07/2024: 27/0.94, 18/0.93 Glucose, 08/06/2024: 780, 679, 442, 292, 08/07/2024:281 Lactic acid, 08/06/2024: 2.9, 2.8 Beta hydroxide beauty uric acid, 08/06/2024, >4.5 HGB A1c, 08/06/2024: > 14 TBI/AST/ALT/AP, 08/07/2024: 0.4/372/582/136 Hepatitis panel, 08/07/2024: Vitamin B12, 08/08/2024: 1050 Folic acid, 08/08/2024: 13.08 TSH, 08/07/2024: 1.77 CT head, 01/11/2022: No intracranial hemorrhage. MRI is recommended if clinical symptoms persist. (Temporal lobe atrophy can be suggestive of the spectrum of mild cognitive impairment, Alzheimer's disease. Clinical correlation is suggested.) CT head, 08/06/2023: 1. No evidence of acute intracranial abnormality. 2. Left frontal scalp swelling. 3. Ventriculomegaly, which may be related to volume loss. A component of communicating hydrocephalus not excluded CT C-spine, 08/06/2024: 1. No evidence of acute cervical spine fracture or traumatic malalignment vital signs Vital Sign Date Time Temp Pulse Resp B/P (MAP) Pulse Ox O2 Delivery O2 Flow Rate FiO2 08/10/24 11:30 89 08/10/24 09:39 12 98 Room Air* 0 21 08/10/24 06:00 124/69 (87) 08/09/24 22:00 98.8 98.8 Total Intake and Output 08/09/24 08/09/24 08/10/24 15:00 23:00 07:00 Intake Total 1137.5 ml 323.5 ml Output Total 1200 ml 1600 ml Balance 1137.5 ml -876.5 ml -1600 ml medications Current Medications Medications Dose Ordered Sig/Dalton Route Start Time Stop Time Status Last Admin Dose Admin Ondansetron HCl 4 mg Q4HP PRN IV 08/06/24 13:30 Enoxaparin Sodium 40 mg DAILY SC 08/07/24 10:00 08/10/24 10:05 40 MG Acetaminophen 650 mg Q6HP PRN PO 08/06/24 13:30 Topiramate 50 mg BID PO 08/06/24 22:00 08/10/24 10:04 50 MG Patient Own Medication 1 tab DAILY PO 08/07/24 10:00 UNV Patient Own Medication 1 cap DAILY PO 08/07/24 10:00 UNV Patient Own Medication 1 cap BID PO 08/06/24 22:00 Patient Own Medication 1 cap DAILY PO 08/07/24 10:00 Memantine 10 mg DAILY PO 08/07/24 10:00 08/10/24 10:04 10 MG Meropenem 50 ml @ 17 mls/hr Q8HR IV 08/07/24 22:00 08/10/24 07:56 17 MLS/HR Pantoprazole Sodium 40 mg DAILY IV 08/08/24 10:00 08/10/24 10:04 40 MG Diagnostic Test (Pha) 1 strip Q6HR 08/08/24 18:00 08/10/24 05:57 1 STRIP Insulin Human Regular FOLLOW SLIDING SCALE Q6HR SC 08/08/24 18:00 08/09/24 23:57 12 UNITS Dextrose 50 ml UD IV 08/08/24 13:30 objective General: the patient is well developed and nourished. No acute distress. HEENT: Bruise in the left forehead, otherwise unremarkable, neck is supple, no carotid bruits. No mass. MENTAL STATUS: Awake, she may only oriented to herself SPEECH, LANGUAGE, HIGHER CORTICAL FUNCTION: She does not vocalize CRANIAL NERVES: Pupils are equal, round and reactive. EOMs full and conjugate. No evoked, nystagmus. Facial sensation intact in all three divisions bilaterally. Mandibular strength intact. Facial muscles symmetrical and strength intact. SENSATION: Sensation to touch and pinprick is normal. MOTOR: Normal tone in the upper and lower extremity. Normal muscle bulk. No fasciculations. No abnormal movements or posturing. She moves the arms and legs REFLEXES: Deep tendon reflexes are symmetrical. No pathological reflexes. CEREBELLAR/COORDINATION: Deferred GAIT/STATION: deferred laboratory and microbiology Laboratory Tests 08/10/24 05:20 Test 08/10/24 05:20 Range/Units Serum Glucose 103 74-106 mg/dL Problem List Dementia, Likely Alzheimer disease, she has advanced dementia Rule out normal-pressure hydrocephalus Gait disturbance Likely secondary to Alzheimer disease Rule out normal-pressure hydrocephalus Bladder/bowel incontinence Likely secondary to Alzheimer's disease Rule out normal-pressure hydrocephalus Migraine headache Metabolic encephalopathy secondary to diabetic ketoacidosis Diabetic ketoacidosis Metabolic acidosis Uncontrolled diabetes Elevated liver function test, Assessment/Plan Monitoring Supportive treatment Telemetry Topiramate 50 mg b.i.d. for now Memantine 10 mg daily for now Rivastigmine 1.5 mg daily for now DVT prophylax GI prophylax Given the degree of dementia, gait disturbance, incontinence, I do not recommend aggressive treatment such a MENTAL HEALTH PRACTITIONER shunt if the patient does have normal-pressure hydrocephalus i Recommend conservative treatment This medical document was created using an electronic medical record system with [employer] dictation system. Although this document has been carefully reviewed, there may still be some phonetic and typographical errors. These areas are purely typographical due to imperfections of the software programs, and do not reflect any compromise in the patient's medical care. Prognosis POOR Plan discussed with: Other PAU GILLESPIE MD Aug 10, 2024 11:48
[2024-08-10] MEDS ORDERED: DEXTROSE (50%) 50ML SYRG IV PRN (13:30)
[2024-08-10] MEDS: POTASSIUM PHOSPHATE 22 MEQ in SODIUM CHL 0.9% 100 ML IV ONE (13:40)
[2024-08-10] MEDS: ACCU-CHEK COMFORT CURVE STRIP VI SCH (13:53)
[2024-08-10] MEDS: InsuLIN REG 1unit/0.01ml Soln (100units/ml) SC SCH (13:54)
[2024-08-10 15:26] VITALS: BP 119/60; PULSE 97; RESP 17; O2SAT 95
[2024-08-10 17:00] VITALS: BP 119/60; PULSE 97; RESP 17; TEMP 97.8; O2SAT 95
[2024-08-10] MEDS: MEROPENEM 1GM IVPB 50 ML IV SCH (17:26)
--- NOTE | 2024-08-10 18:12 | DVHPNRES ---
Progress Note Date Seen: Aug 11, 2024 Resident Creating Document: VIMAL MATTSON RESIDENT Medical Necessity Reason Pt with a Central, PICC or Fol: Yes The following are medically ne: Parnell Catheter Subjective Review of Systems Patient seen and examined at bedside. She is alert but confused As per family, patient is at her baseline neurological status. Review of system could not be done as patient is confused Changes from previous H/P or p: Changes Objective vital signs Vital Sign Date Time Temp Pulse Resp B/P (MAP) Pulse Ox O2 Delivery O2 Flow Rate FiO2 08/10/24 17:00 97.8 97 17 119/60 (79) 95 97.8 08/10/24 16:22 Room Air* 0 21 Total Intake and Output 08/09/24 08/09/24 08/10/24 15:00 23:00 07:00 Intake Total 1137.5 ml 323.5 ml Output Total 1200 ml 1600 ml Balance 1137.5 ml -876.5 ml -1600 ml medications Current Medications Medications Dose Ordered Sig/Dalton Route Start Time Stop Time Status Last Admin Dose Admin Ondansetron HCl 4 mg Q4HP PRN IV 08/06/24 13:30 Enoxaparin Sodium 40 mg DAILY SC 08/07/24 10:00 08/10/24 10:05 40 MG Acetaminophen 650 mg Q6HP PRN PO 08/06/24 13:30 Topiramate 50 mg BID PO 08/06/24 22:00 08/10/24 10:04 50 MG Patient Own Medication 1 tab DAILY PO 08/07/24 10:00 UNV Patient Own Medication 1 cap DAILY PO 08/07/24 10:00 UNV Patient Own Medication 1 cap BID PO 08/06/24 22:00 Patient Own Medication 1 cap DAILY PO 08/07/24 10:00 Memantine 10 mg DAILY PO 08/07/24 10:00 08/10/24 10:04 10 MG Pantoprazole Sodium 40 mg DAILY IV 08/08/24 10:00 08/10/24 10:04 40 MG Diagnostic Test (Pha) 1 strip Q4H 08/10/24 14:00 08/10/24 17:33 1 STRIP Insulin Human Regular Q4H SC 08/10/24 14:00 08/10/24 17:41 6 UNITS Dextrose 50 ml UD PRN IV 08/10/24 13:30 Meropenem 50 ml @ 17 mls/hr Q8H IV 08/10/24 16:00 08/10/24 17:26 17 MLS/HR Examination Examination General Appearance: Confused HEENT: EOMI Respiratory: Clear to auscultation, Normal air movement Cardiovascular: Regular rate, Normal S1, Normal S2 Abdominal: Normal bowel sounds Extremities: No cyanosis, No edema, Normal pulses, No tenderness/swelling Skin: No rashes, No breakdown Neuro: Confused laboratory and microbiology Laboratory Tests 08/10/24 05:20 Test 08/10/24 05:20 Range/Units Serum Glucose 103 74-106 mg/dL Microbiology Date/Time Source Procedure Growth Status 08/07/24 08:37 Urine - Catheterized Urine Culture - Final Complete 08/06/24 15:31 Blood Blood Culture - Preliminary NO GROWTH AFTER 72 HOURS OF INCUBATION. Resulted Labs and/or images reviewed: Labs reviewed by me, Image(s) reviewed by me Problem List/Assessment/Plan Problem List/Assessment/Plan Assessment/plan # metabolic encephalopathy due to sepsis, over baseline dementia -head CT # Alzheimer's disease -neurology on board #?NPH -neurology on board # ?sepsis to UTI -currently on meropenem #UTI -urine culture # mechanical fall Head CT # hypokalemia Resolved # transaminitis Monitor # DKA Resolved Started diet per swallow evaluation Discontinue Clinimix # diabetes mellitus type 2 -basal bolus regimen # history of depression #DVT prophylaxis -Low dose Lovenox 40mg SC daily PT consulted for evaluation DC planning within 24-48 hrs Case discussion with Dr. Clancy Code status, full code Plan discussed with: Other My Orders My Orders Orders - VIMAL MATTSON RESIDENT Procedure Category Date Status Time Pt Request For Service PT 08/10/24 Logged 08:55 Glucose Blood PHA 08/10/24 In Process (Accu-Chek Comfort 14:00 Insulin R (Human) PHA 08/10/24 In Process (Insulin R) 14:00 Dextrose 50% Syringe PHA 08/10/24 In Process 13:30 * Wound Consult CONS 08/10/24 Transmitted Date of Service: Aug 11, 2024 Billing Provider: BARBARA CLANCY MD Common Visit Codes: [id number] INP/OBS CARE(HIGH) VIMAL MATTSON RESIDENT Aug 10, 2024 18:11 BARBARA CLANCY MD Aug 11, 2024 09:02
--- NOTE | 2024-08-10 18:19 | DVHPN2 ---
Progress Note Date Seen: Aug 10, 2024 Resident Creating Document: NORMA STEEN RESIDENT Medical Necessity Reason Pt with a Central, PICC or Fol: Yes The following are medically ne: Parnell Catheter Medical Necessity Reason improving and back to baseline Dementia Subjective Review of Systems Patient seen and examined today with family present. She is alert, but still confused. said this is her baseline. She intermittently responded to commands. She denies any abdomen pain. She has not had any bowel movement today. Lab values : Wbc: 8.5 Hbc: 13.8 /Hct: 40.2 UA was negative AST:60 ALT:259 ALP: 130 lipase: 70--> 77 Objective vital signs Vital Sign Date Time Temp Pulse Resp B/P (MAP) Pulse Ox O2 Delivery O2 Flow Rate FiO2 08/10/24 17:00 97.8 97 17 119/60 (79) 95 97.8 08/10/24 16:22 Room Air* 0 21 Total Intake and Output 08/09/24 08/09/24 08/10/24 15:00 23:00 07:00 Intake Total 1137.5 ml 323.5 ml Output Total 1200 ml 1600 ml Balance 1137.5 ml -876.5 ml -1600 ml medications Current Medications Medications Dose Ordered Sig/Dalton Route Start Time Stop Time Status Last Admin Dose Admin Ondansetron HCl 4 mg Q4HP PRN IV 08/06/24 13:30 Enoxaparin Sodium 40 mg DAILY SC 08/07/24 10:00 08/10/24 10:05 40 MG Acetaminophen 650 mg Q6HP PRN PO 08/06/24 13:30 Topiramate 50 mg BID PO 08/06/24 22:00 08/10/24 10:04 50 MG Patient Own Medication 1 tab DAILY PO 08/07/24 10:00 UNV Patient Own Medication 1 cap DAILY PO 08/07/24 10:00 UNV Patient Own Medication 1 cap BID PO 08/06/24 22:00 Patient Own Medication 1 cap DAILY PO 08/07/24 10:00 Memantine 10 mg DAILY PO 08/07/24 10:00 08/10/24 10:04 10 MG Pantoprazole Sodium 40 mg DAILY IV 08/08/24 10:00 08/10/24 10:04 40 MG Diagnostic Test (Pha) 1 strip Q4H 08/10/24 14:00 08/10/24 17:33 1 STRIP Insulin Human Regular Q4H SC 08/10/24 14:00 08/10/24 17:41 6 UNITS Dextrose 50 ml UD PRN IV 08/10/24 13:30 Meropenem 50 ml @ 17 mls/hr Q8H IV 08/10/24 16:00 08/10/24 17:26 17 MLS/HR Examination General examination- Not in acute distress, altered, but smiling a lot HEENT: PEERLA, no acute nasal discharge Chest: S1-S2 audible, rate and rhythm regular, no murmur Lung: CTAB, no wheeze or rhonchi Abdomen: Soft slightly distended hypoactive bowel sounds, mild tenderness in palpation Musculoskeletal: no acute joint swelling or tenderness Lower extremity: no leg edema, soft muscle Neurological: Appears to be nonfocal Psychiatry-- altered, at baseline Skin- no acute rash or purpura laboratory and microbiology Laboratory Tests 08/10/24 05:20 Test 08/10/24 05:20 Range/Units Serum Glucose 103 74-106 mg/dL Microbiology Date/Time Source Procedure Growth Status 08/07/24 08:37 Urine - Catheterized Urine Culture - Final Complete 08/06/24 15:31 Blood Blood Culture - Preliminary NO GROWTH AFTER 72 HOURS OF INCUBATION. Resulted Problem List/Assessment/Plan Problem List/Assessment/Plan Hypoxic liver injury --> Liver enzymes trending downward --> likely secondary to underlying DKA/dehydration --> Recommend 1/2 NS 100ml/hr --> Manage the underlying cause --> Hep B and C antibody: Negative Hepatitis A positive --> monitor liver enzymes closely Hepatic steatosis Mild pancreatitis --> Lipase : 70--> 77 --> change diet to full liquid diet Diabetic ketoacidosis --> anion gap metabolic acidosis Gap closed now --> Serum sugar 780 --> hgb > 14.0 --> Insulin --> adequate hydration --> Accu checks --> replace potassium Hypokalemia--> IMPROVED --> K: 3.3--> 3.6 --> Monitor EKG Lactic acidosis --> Bicarbonate 1 amp/ liter fluid Dehydration 1/2 NS 100ml/hr ADONIS secondary to VMN --> adequate hydration Hypernatremia--> Improved Metabolic encephalopathy --> in the setting of DKA/hypernatremia --> manage the underlying condition Severe protein calorie malnutrition --> BMI of 18.9 --> muscle wasting Dementia Depression PLAN Continue IV fluid hydration We can start her on IV Clinimix at 42 mL/hour Patient can undergo swallow evaluation and if she passes that then we will advance her diet Continue IV antibiotics Continue to monitor labs Goal of care discussed for more than 35 minute Case and plan discussed with Dr. Knight Thank you for allowing us to participate in the care of this patient. Please call if you have any questions or concerns. Plan discussed with: Patient, Spouse NORMA STEEN RESIDENT Aug 10, 2024 18:19
[2024-08-10 21:00] VITALS: BP 119/55; PULSE 87; RESP 18; TEMP 97.9
[2024-08-11 01:00] VITALS: BP 134/74; PULSE 75; RESP 18; TEMP 98.1; O2SAT 91
[2024-08-11 05:00] VITALS: BP 129/76; PULSE 71; RESP 18; TEMP 97.5; O2SAT 97
[2024-08-11 06:34] LABS: Albumin 3.5 g/dL (3.2-4.8); Carbon Dioxide 27 mmol/L (20-31); Potassium 3.7 mmol/L (3.5-5.1)
[2024-08-11 06:35] LABS: Anion Gap 7 (5-15); BUN/Creatinine Ratio 10.8 (10.0-20.0); Blood Urea Nitrogen 9 mg/dL (9-23); Phosphorus 3.5 mg/dL (2.4-5.1); Sodium 144 mmol/L (136-145); Total Protein 5.7 g/dL (5.7-8.2)
[2024-08-11 06:40] LABS: Alanine Aminotransferase 199 U/L (7-40); Alkaline Phosphatase 129 U/L (46-116); Aspartate Aminotransferase 46 U/L (13-40); Chloride 110 mmol/L (98-107); Glucose 184 mg/dL (74-106); Lipase 70 U/L (12-53)
[2024-08-11 06:54] LABS: Bilirubin, Total 0.5 mg/dL (0.2-1.0)
[2024-08-11 09:00] VITALS: BP 138/76; PULSE 63; RESP 17; TEMP 98; O2SAT 96
[2024-08-11] MEDS: cefTRIAXone 1GM/50ML D5W 50 ML IV SCH (11:36)
[2024-08-11 13:00] VITALS: BP 146/80; PULSE 84; RESP 16; TEMP 97.8; O2SAT 94
--- NOTE | 2024-08-11 16:57 | DVHPN2 ---
Progress Note - Dictate Date Seen: Aug 11, 2024 Medical Necessity Reason Pt with a Central, PICC or Fol: Yes The following are medically ne: Parnell Catheter Subjective Patient is stable and back to her baseline She is tolerating a pureed diet Lipase level is down to 70 Liver enzymes are trending down Hepatitis panel is negative vital signs Vital Sign Date Time Temp Pulse Resp B/P (MAP) Pulse Ox O2 Delivery O2 Flow Rate FiO2 08/11/24 13:00 97.8 84 16 146/80 (102) 94 97.8 08/11/24 08:00 Room Air* 0 21 Total Intake and Output 08/10/24 08/10/24 08/11/24 15:00 23:00 07:00 Intake Total 50 ml Balance 50 ml medications Current Medications Medications Dose Ordered Sig/Dalton Route Start Time Stop Time Status Last Admin Dose Admin Ondansetron HCl 4 mg Q4HP PRN IV 08/06/24 13:30 Enoxaparin Sodium 40 mg DAILY SC 08/07/24 10:00 08/11/24 13:11 40 MG Acetaminophen 650 mg Q6HP PRN PO 08/06/24 13:30 Topiramate 50 mg BID PO 08/06/24 22:00 08/11/24 11:39 50 MG Patient Own Medication 1 tab DAILY PO 08/07/24 10:00 UNV Patient Own Medication 1 cap DAILY PO 08/07/24 10:00 UNV Patient Own Medication 1 cap BID PO 08/06/24 22:00 Patient Own Medication 1 cap DAILY PO 08/07/24 10:00 Memantine 10 mg DAILY PO 08/07/24 10:00 08/11/24 11:40 10 MG Pantoprazole Sodium 40 mg DAILY IV 08/08/24 10:00 08/11/24 11:36 40 MG Diagnostic Test (Pha) 1 strip Q4H 08/10/24 14:00 08/11/24 11:55 1 STRIP Insulin Human Regular Q4H SC 08/10/24 14:00 08/11/24 05:56 3 UNITS Dextrose 50 ml UD PRN IV 08/10/24 13:30 Ceftriaxone Sodium 50 ml @ 100 mls/hr DAILY@09 IV 08/11/24 09:00 08/11/24 11:36 100 MLS/HR objective General examination- lying in bed with eyes closed however did show facial expression of pain arousable HEENT: PEERLA, EOMI Chest: S1-S2 audible, rate and rhythm regular, no murmur Lung: CTAB, no wheeze or rhonchi Abdomen: Soft slightly distended hypoactive bowel sounds Lower extremity: no leg edema Neurological: Appears to be nonfocal laboratory and microbiology Laboratory Tests 08/11/24 05:39 08/10/24 05:20 Test 08/11/24 05:39 Range/Units Serum Glucose 184 H 74-106 mg/dL Problems(with codes): (1) Shock liver (2) Elevated liver enzymes (3) Hepatic steatosis (4) Dementia (5) Hypokalemia (6) Fall at home Prognosis Plan Patient is currently on IV antibiotics She is tolerating a pureed diet Continue supportive care Continue Protonix 40 mg p.o. daily Discharge planning as per hospitalist Plan discussed with: Other (Annita Lawson) DEISI MATIAS MD Aug 11, 2024 16:57
[2024-08-11 17:00] VITALS: BP 137/89; PULSE 78; RESP 17; TEMP 98.1; O2SAT 93
[2024-08-11 21:00] VITALS: BP 113/67; PULSE 99; RESP 18; TEMP 98.4; O2SAT 93
--- NOTE | 2024-08-11 21:16 | DVHPN2 ---
Progress Note - Dictate Date Seen: Aug 11, 2024 Medical Necessity Reason Pt with a Central, PICC or Fol: Yes The following are medically ne: Parnell Catheter Subjective Ms. Vilchis is a 74 years old right-handed female with a history of prediabetes, dementia, depression, migraine headache, the patient was brought to the [facility] on 08/06/2024 with a chief company of fall injury. I have seen and examined the patient, I have talked to her nurse. She was doing fine, socially appropriate, she does not talk. Urinalysis, 08/06/2024: WBC: 2, urine leukocyte esterase: Negative ABG, 08/06/2023: Metabolic acidosis, hypoxia, WBC/HB/PLT/MCV, 08/07/2024: 21.1/13.5/214/90.6, 08/09/2024: 7.7/13.7/135/89.7 Na, 08/07/2024: 08/06/2024: 162, 160, 153, 150 K, 08/07/2024: 3.3, 3.6 Anion gap, 08/06/2024: 22 BUN/CR, 08/06/2024: 57/2.13, 08/07/2024: 27/0.94, 18/0.93 Glucose, 08/06/2024: 780, 679, 442, 292, 08/07/2024:281 Lactic acid, 08/06/2024: 2.9, 2.8 Beta hydroxide beauty uric acid, 08/06/2024, >4.5 HGB A1c, 08/06/2024: > 14 TBI/AST/ALT/AP, 08/07/2024: 0.4/372/582/136 Hepatitis panel, 08/07/2024: Vitamin B12, 08/08/2024: 1050 Folic acid, 08/08/2024: 13.08 TSH, 08/07/2024: 1.77 CT head, 01/11/2022: No intracranial hemorrhage. MRI is recommended if clinical symptoms persist. (Temporal lobe atrophy can be suggestive of the spectrum of mild cognitive impairment, Alzheimer's disease. Clinical correlation is suggested.) CT head, 08/06/2023: 1. No evidence of acute intracranial abnormality. 2. Left frontal scalp swelling. 3. Ventriculomegaly, which may be related to volume loss. A component of communicating hydrocephalus not excluded CT C-spine, 08/06/2024: 1. No evidence of acute cervical spine fracture or traumatic malalignment vital signs Vital Sign Date Time Temp Pulse Resp B/P (MAP) Pulse Ox O2 Delivery O2 Flow Rate FiO2 08/11/24 17:00 98.1 78 17 137/89 (105) 93 98.1 08/11/24 08:00 Room Air* 0 21 Total Intake and Output 08/10/24 08/10/24 08/11/24 15:00 23:00 07:00 Intake Total 50 ml Balance 50 ml medications Current Medications Medications Dose Ordered Sig/Dalton Route Start Time Stop Time Status Last Admin Dose Admin Ondansetron HCl 4 mg Q4HP PRN IV 08/06/24 13:30 Enoxaparin Sodium 40 mg DAILY SC 08/07/24 10:00 08/11/24 13:11 40 MG Acetaminophen 650 mg Q6HP PRN PO 08/06/24 13:30 Topiramate 50 mg BID PO 08/06/24 22:00 08/11/24 11:39 50 MG Patient Own Medication 1 tab DAILY PO 08/07/24 10:00 UNV Patient Own Medication 1 cap DAILY PO 08/07/24 10:00 UNV Patient Own Medication 1 cap BID PO 08/06/24 22:00 Patient Own Medication 1 cap DAILY PO 08/07/24 10:00 Memantine 10 mg DAILY PO 08/07/24 10:00 08/11/24 11:40 10 MG Pantoprazole Sodium 40 mg DAILY IV 08/08/24 10:00 08/11/24 11:36 40 MG Diagnostic Test (Pha) 1 strip Q4H 08/10/24 14:00 08/11/24 18:50 1 STRIP Insulin Human Regular Q4H SC 08/10/24 14:00 08/11/24 17:09 6 UNITS Dextrose 50 ml UD PRN IV 08/10/24 13:30 Ceftriaxone Sodium 50 ml @ 100 mls/hr DAILY@09 IV 08/11/24 09:00 08/11/24 11:36 100 MLS/HR objective General: the patient is well developed and nourished. No acute distress. HEENT: Bruise in the left forehead, otherwise unremarkable, neck is supple, no carotid bruits. No mass. MENTAL STATUS: Awake, she may only oriented to herself SPEECH, LANGUAGE, HIGHER CORTICAL FUNCTION: She does not vocalize CRANIAL NERVES: Pupils are equal, round and reactive. EOMs full and conjugate. No evoked, nystagmus. Facial sensation intact in all three divisions bilaterally. Mandibular strength intact. Facial muscles symmetrical and strength intact. SENSATION: Sensation to touch and pinprick is normal. MOTOR: Normal tone in the upper and lower extremity. Normal muscle bulk. No fasciculations. No abnormal movements or posturing. She moves the arms and legs REFLEXES: Deep tendon reflexes are symmetrical. No pathological reflexes. CEREBELLAR/COORDINATION: Deferred GAIT/STATION: deferred laboratory and microbiology Laboratory Tests 08/11/24 05:39 08/10/24 05:20 Test 08/11/24 05:39 Range/Units Serum Glucose 184 H 74-106 mg/dL Problem List Dementia, Likely Alzheimer disease, she has advanced dementia Rule out normal-pressure hydrocephalus Gait disturbance Likely secondary to Alzheimer disease Rule out normal-pressure hydrocephalus Bladder/bowel incontinence Likely secondary to Alzheimer's disease Rule out normal-pressure hydrocephalus Migraine headache Metabolic encephalopathy secondary to diabetic ketoacidosis Diabetic ketoacidosis Metabolic acidosis Uncontrolled diabetes Elevated liver function test, Assessment/Plan Monitoring Supportive treatment Telemetry Topiramate 50 mg b.i.d. for now Memantine 10 mg daily for now Rivastigmine 1.5 mg daily for now DVT prophylax GI prophylax Given the degree of dementia, gait disturbance, incontinence, I do not recommend aggressive treatment such a GROCERY ASSOCIATE shunt if the patient does have normal-pressure hydrocephalus I Recommend conservative treatment This medical document was created using an electronic medical record system with [employer] dictation system. Although this document has been carefully reviewed, there may still be some phonetic and typographical errors. These areas are purely typographical due to imperfections of the software programs, and do not reflect any compromise in the patient's medical care. Prognosis poor Plan discussed with: Other PAU GILLESPIE MD Aug 11, 2024 21:16
--- NOTE | 2024-08-11 21:27 | DVHPNRES ---
Progress Note Date Seen: Aug 11, 2024 Resident Creating Document: VIMAL MATTSON RESIDENT Medical Necessity Reason Pt with a Central, PICC or Fol: Yes The following are medically ne: Parnell Catheter Subjective Review of Systems Patient seen and examined at bedside. she is currently confused Family at bedside updated about the condition of the patient Discharge planning discussed with the patient, within 24-48 hours. Review of system could not be done as patient is confused Objective vital signs Vital Sign Date Time Temp Pulse Resp B/P (MAP) Pulse Ox O2 Delivery O2 Flow Rate FiO2 08/11/24 17:00 98.1 78 17 137/89 (105) 93 98.1 08/11/24 08:00 Room Air* 0 21 Total Intake and Output 08/10/24 08/10/24 08/11/24 15:00 23:00 07:00 Intake Total 50 ml Balance 50 ml medications Current Medications Medications Dose Ordered Sig/Dalton Route Start Time Stop Time Status Last Admin Dose Admin Ondansetron HCl 4 mg Q4HP PRN IV 08/06/24 13:30 Enoxaparin Sodium 40 mg DAILY SC 08/07/24 10:00 08/11/24 13:11 40 MG Acetaminophen 650 mg Q6HP PRN PO 08/06/24 13:30 Topiramate 50 mg BID PO 08/06/24 22:00 08/11/24 11:39 50 MG Patient Own Medication 1 tab DAILY PO 08/07/24 10:00 UNV Patient Own Medication 1 cap DAILY PO 08/07/24 10:00 UNV Patient Own Medication 1 cap BID PO 08/06/24 22:00 Patient Own Medication 1 cap DAILY PO 08/07/24 10:00 Memantine 10 mg DAILY PO 08/07/24 10:00 08/11/24 11:40 10 MG Pantoprazole Sodium 40 mg DAILY IV 08/08/24 10:00 08/11/24 11:36 40 MG Diagnostic Test (Pha) 1 strip Q4H 08/10/24 14:00 08/11/24 18:50 1 STRIP Insulin Human Regular Q4H SC 08/10/24 14:00 08/11/24 17:09 6 UNITS Dextrose 50 ml UD PRN IV 08/10/24 13:30 Ceftriaxone Sodium 50 ml @ 100 mls/hr DAILY@09 IV 08/11/24 09:00 08/11/24 11:36 100 MLS/HR Examination Examination General Appearance: Confused HEENT: EOMI Respiratory: Clear to auscultation, Normal air movement Cardiovascular: Regular rate, Normal S1, Normal S2 Abdominal: Normal bowel sounds Extremities: No cyanosis, No edema, Normal pulses, No tenderness/swelling Skin: No rashes, No breakdown Neuro: Confused laboratory and microbiology Laboratory Tests 08/11/24 05:39 08/10/24 05:20 Test 08/11/24 05:39 Range/Units Serum Glucose 184 H 74-106 mg/dL Microbiology Date/Time Source Procedure Growth Status 08/07/24 08:37 Urine - Catheterized Urine Culture - Final Complete 08/06/24 15:31 Blood Blood Culture - Final NO GROWTH AFTER 5 DAYS OF INCUBATION. Complete Labs and/or images reviewed: Labs reviewed by me, Image(s) reviewed by me Problem List/Assessment/Plan Problem List/Assessment/Plan Assessment/plan # metabolic encephalopathy due to sepsis, over baseline dementia -head CT # Alzheimer's disease -neurology on board #?NPH -neurology on board # ?sepsis to UTI -currently on meropenem #UTI -urine culture # mechanical fall Head CT # hypokalemia Resolved # transaminitis Monitor # DKA Resolved Started diet per swallow evaluation Discontinue Clinimix # diabetes mellitus type 2 -basal bolus regimen # history of depression #DVT prophylaxis -Low dose Lovenox 40mg SC daily PT consulted for evaluation DC planning within 24-48 hrs Case discussion with Dr. Clancy Code status, full code Plan discussed with: Other My Orders My Orders Orders - VIMAL MATTSNO RESIDENT Procedure Category Date Status Time Ceftriaxone 1gm/50ml PHA 08/11/24 In Process D5w (Rocephin) 09:00 * Dietary Consult CONS 08/11/24 Transmitted 13:57 Apply Z-Guard LAMIN 08/11/24 In Process 11:40 Date of Service: Aug 11, 2024 Billing Provider: BARBARA CLANCY MD Common Visit Codes: [id number] INP/OBS CARE(HIGH) VIMAL MATTSON RESIDENT Aug 11, 2024 21:27 BARBARA CLANCY MD Aug 16, 2024 21:17
[2024-08-12 01:00] VITALS: BP 125/69; PULSE 88; RESP 16; TEMP 98.4; O2SAT 98
[2024-08-12 05:00] VITALS: BP 129/69; PULSE 77; RESP 18; TEMP 97.4; O2SAT 100
--- NOTE | 2024-08-12 08:13 | DVHDSRES ---
Discharge Summary Date of Admission Resident Creating Document: VIMAL MATTSON Aug 06, 2024 at 13:29 Date of Discharge: Aug 12, 2024 Labs/Diagnostic Data: Laboratory Results Test 08/12/24 05:21 08/11/24 05:39 08/10/24 05:20 08/09/24 06:39 POC Glucose 159 mg/dl (70-106) Sodium Level 144 mmol/L (136-145) Potassium Level 3.7 mmol/L (3.5-5.1) Chloride Level 110 mmol/L (98-107) Carbon Dioxide Level 27 mmol/L (20-31) Anion Gap 7 (5-15) Blood Urea Nitrogen 9 mg/dL (9-23) Creatinine 0.83 mg/dL (0.550-1.02) Glomerular Filtration Rate Calc 73 mL/min (>90) BUN/Creatinine Ratio 10.8 (10.0-20.0) Serum Glucose 184 mg/dL (74-106) Calcium Level 10.0 mg/dL (8.7-10.4) Phosphorus Level 3.5 mg/dL (2.4-5.1) Magnesium Level 2.0 mg/dL (1.6-2.6) Total Bilirubin 0.5 mg/dL (0.2-1.0) Aspartate Amino Transferase (AST) 46 U/L (13-40) Alanine Aminotransferase (ALT) 199 U/L (7-40) Alkaline Phosphatase 129 U/L (46-116) Total Protein 5.7 g/dL (5.7-8.2) Albumin 3.5 g/dL (3.2-4.8) Lipase 70 U/L (12-53) White Blood Count 8.5 10^3/uL (4.4-10.8) Red Blood Count 4.53 10^6/uL (4.0-5.20) Hemoglobin 13.8 g/dL (12.2-16.2) Hematocrit 40.2 % (36.0-46.0) Mean Corpuscular Volume 88.7 fL (80.0-100.0) Mean Corpuscular Hemoglobin 30.4 pg (28.0-32.0) Mean Corpuscular Hemoglobin Concent 34.2 g/dL (32.0-36.0) Red Cell Distribution Width 15.0 % (11.8-14.3) Platelet Count 143 10^3/uL (140-450) Mean Platelet Volume 10.3 fL (6.9-10.8) Neutrophils (%) (Auto) 64.8 % (37.0-80.0) Lymphocytes (%) (Auto) 24.1 % (10.0-50.0) Monocytes (%) (Auto) 8.8 % (0.0-12.0) Eosinophils (%) (Auto) 2.0 % (0.0-7.0) Basophils (%) (Auto) 0.3 % (0.0-2.0) Neutrophils # (Auto) 5.5 10 ^3/uL (1.6-8.6) Lymphocytes # (Auto) 2.1 10 ^3/uL (0.4-5.4) Monocytes # (Auto) 0.7 10 ^3/uL (0-1.3) Eosinophils # (Auto) 0.2 10 ^3/uL (0-0.8) Basophils # (Auto) 0 10 ^3/uL (0-0.2) Nucleated Red Blood Cells 0.2 % Triglycerides Level 158 mg/dL (< 150) Test 08/08/24 07:19 08/07/24 18:35 08/07/24 06:36 08/06/24 17:45 Vitamin B12 Level 1050 pg/mL (211-911) Folic Acid 13.08 ng/mL (>5.38) Free Thyroxine (T4) Calculated 0.90 ng/dL (0.89-1.76) Thyroid Stimulating Hormone (TSH) 1.77 uIU/mL (0.55-4.78) Hepatitis A Antibody Total Positive (Negative) Hepatitis B Surface Antigen Negative (Negative) Hepatitis B Surface Antibody Negative (Negative) Hepatitis B Core IgM Antibody Negative (Negative) Hepatitis C Antibody Negative (Negative) Lactic Acid Level 2.8 mmol/L (0.4-2.0) Test 08/06/24 13:33 08/06/24 13:03 08/06/24 09:14 08/06/24 08:00 Blood Gas Specimen Type Arterial Blood Gas Sample Site Left radial Blood Gas Patient Temperature 37.0 Arterial Blood Date Drawn [id number] Arterial Blood pH 7.296 (7.350-7.450) Arterial Blood Partial Pressure CO2 29.7 mmHg (32.0-45.0) Arterial Blood Partial Pressure O2 81.1 mmHg (83.0-108.0) Arterial Blood HCO3 14.2 mmol/L (21.0-28.0) Arterial Blood Oxygen Saturation 94.7 % (94.0-98.0) Arterial Blood Base Excess -10.8 mmol/L (-2.0-3.0) Arterial Blood Oxyhemoglobin 93.4 % (94.0-98.0) Arterial Blood Carboxyhemoglobin 0.6 % (0.5-1.5) Arterial Blood Methemoglobin 0.8 % (0.0-1.5) Rafiq Test Yes Blood Gas Total Hemoglobin 14.80 g/dL (12.0-16.0) Blood Gas Modality Room air FiO2 % 21.0 Differential Total Cells Counted 100.0 (100) Neutrophils % (Manual) 97 (37.0-80.0) Band Neutrophils % (Manual) 0 Lymphocytes % (Manual) 2 (10.0-50.0) Monocytes % (Manual) 1 (0-12) Eosinophils % (Manual) 0 (0-7) Basophils % (Manual) 0 (0.0-2.0) Metamyelocytes % (manual) 0 Myelocytes % (Manual) 0 Promyelocytes % (Manual) 0 Blast Cells % (Manual) 0 Reactive Lymphocytes 0 Platelet Estimate Adequate Hemoglobin A1c > 14.0 % A1C (<5.7) Serum Osmolality 392 mOsm/kg (278-298) Beta-Hydroxybutyric Acid > 4.500 mmol/L (< 0.4) Urine Color Light-yellow (Yellow) Urine Clarity Clear (Clear) Urine pH 5.0 (5.0-9.0) Urine Specific [place] 1.032 (1.001-1.035) Urine Protein Trace (Negative) Urine Ketones 2+ (Negative) Urine Blood Trace /uL (Negative) Urine Nitrite Negative (Negative) Urine Bilirubin Negative (Negative) Urine Urobilinogen Normal mg/dL (Negative) Urine Leukocyte Esterase Negative /uL (Negative) Urine RBC 4 /hpf (0 - 4) Urine WBC 2 /hpf (0 - 5) Urine Squamous Epithelial Cells Few /hpf (<5) Urine Bacteria Few /hpf (None Seen) Urine Hyaline Casts Few /lpf (0 - 2) Urine Mucus Few (None Seen) Urine Glucose 4+ mg/dL (Normal) Troponin I High Sensitivity 31 ng/L (</=34) Other Laboratory Tests 08/11/24 05:39 08/10/24 05:20 Brief Hx & Hospital Course: 74-year-old female with past medical history of diabetes mellitus, dementia, depression and past surgical history of cholecystectomy and right wrist surgery presented with the complaints of fall. Patient's spouse reported that patient turned towards side fell and hit her head. As per swallows, She was able to walk with assistance but had progressively gotten weaker and needed total care and is bed-bound.she was mumbling words before but didn't make any sense, now she's nonverbal. He also reports that she is unable to swallow her food now which occurred just recently. Head CT was done, which showed no evidence of acute intracranial abnormality but showed left frontal scalp swelling. Patient was still found to be in DKA, was started on IV fluids, insulin drip. Labs also showed ADONIS due to which cutlery grinder was consulted. Hypokalemia was corrected. Neurology was consulted due to altered level of consciousness. Labs revealed evidence of UTI after which antibiotics were started. Labs also revealed transaminitis due to with GI was consulted. Patient was started on DVT prophylaxis. 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 Patient was started on topiramate, memantine, rivastigmine by neurologist Patient DKA got resolved, had swallow evaluation after which patient was started on diet and switch to sliding scale insulin. Patient was confusion in the hospital stay, and as per the family patient was at her baseline. Goals of care dose discussed with the patient and patient's family decided for home hospice. Animal Anatomy Teacher was consulted to arrange home hospice At the time of discharge, patient had stable vitals, no new complaints. Discharge plan was discussed with the family and patient was discharged to home hospice. Patient was discharged on Keflex for UTI. Condition at Discharge: Stable Final Diagnosis/Problems List DKA, resolved mechanical fall Medical unit encephalopathy likely due to sepsis/UTI ? Questionable sepsis due to UTI UTI ADONIS likely due to volume depletion Hyponatremia Hypokalemia Dementia Depression Transaminitis Discharge Disposition: Hospice - Home Discharge Instruct/Medications Diet: Consistent carbohydrate Activity: No Restrictions, As Tolerated Follow Up/Referral: f/u with PCP within 1-2 weeks Medications: Keflex Discharge Statement: "Patient was advised to return to the ER or call 911 if any headaches, dizziness, shortness of breath, chest pain, abdominal pain, bleeding, fevers, or worsening of medical condition. Patient was counseled about treatment plan, medications, possible side effects, patientverbalized understanding. All questions were answered to the best of my ability. This discharge took greater then 30 minutes in planning, reviewing documentation, counseling the patient, and discussing with other team members." ASSESSMENT ASSESSMENT Assessment DKA mechanical fall UTI Date of Service: Aug 12, 2024 Billing Provider: BARBARA CLANCY MD Common Visit Codes: [id number] DISCH DAY >30min VIMAL MATTSON RESIDENT Aug 12, 2024 08:13 BARBARA CLANCY MD Aug 16, 2024 21:18
[2024-08-12 09:00] VITALS: BP 112/56; PULSE 68; RESP 16; TEMP 98.1; O2SAT 95
[2024-08-12 10:41] LABS: Albumin 3.8 g/dL (3.2-4.8); Anion Gap 6 (5-15); BUN/Creatinine Ratio 10.3 (10.0-20.0); Blood Urea Nitrogen 9 mg/dL (9-23); Calcium 10.1 mg/dL (8.7-10.4); Carbon Dioxide 29 mmol/L (20-31); Chloride 106 mmol/L (98-107); Potassium 3.5 mmol/L (3.5-5.1); Sodium 141 mmol/L (136-145)
[2024-08-12 10:42] LABS: Bilirubin, Total 0.5 mg/dL (0.2-1.0); Total Protein 6.5 g/dL (5.7-8.2)
[2024-08-12 10:45] LABS: Alanine Aminotransferase 184 U/L (7-40); Alkaline Phosphatase 139 U/L (46-116); Aspartate Aminotransferase 54 U/L (13-40); Glucose 155 mg/dL (74-106)
[2024-08-12 11:30] LABS: Lipase 93 U/L (12-53)
[2024-08-12] MEDS ORDERED: ACCU-CHEK COMFORT CURVE STRIP VI SCH ×2 (12:00)
[2024-08-12] MEDS ORDERED: InsuLIN REG 1unit/0.01ml Soln (100units/ml) SC SCH ×2 (12:00)
[2024-08-12] MEDS ORDERED: CEPH500C PO (12:07)
[2024-08-12 13:00] VITALS: BP 149/81; PULSE 77; RESP 19; TEMP 97.6; O2SAT 95
--- NOTE | 2024-08-12 15:37 | DVHPN2 ---
Progress Note Date Seen: Aug 12, 2024 Resident Creating Document: NORMA STEEN Medical Necessity Reason Pt with a Central, PICC or Fol: Yes The following are medically ne: Parnell Catheter Medical Necessity Reason stable and ready for discharge Subjective Review of Systems Patient seen and examined today with nurse present. Patient was not communicating today. She was fed by the nurse. No new complaints reported. Her labs today are stable. Patient pending discharge for hospice. Objective vital signs Vital Sign Date Time Temp Pulse Resp B/P (MAP) Pulse Ox O2 Delivery O2 Flow Rate FiO2 08/12/24 09:00 98.1 68 16 112/56 (74) 95 98.1 08/12/24 08:00 Room Air* 0 21 Total Intake and Output 08/11/24 08/11/24 08/12/24 15:00 23:00 07:00 Intake Total 50 ml 1150 ml Output Total 2100 ml Balance 50 ml -950 ml medications Current Medications Medications Dose Ordered Sig/Dalton Route Start Time Stop Time Status Last Admin Dose Admin Ondansetron HCl 4 mg Q4HP PRN IV 08/06/24 13:30 Enoxaparin Sodium 40 mg DAILY SC 08/07/24 10:00 08/12/24 09:18 40 MG Acetaminophen 650 mg Q6HP PRN PO 08/06/24 13:30 Topiramate 50 mg BID PO 08/06/24 22:00 08/12/24 09:09 50 MG Patient Own Medication 1 tab DAILY PO 08/07/24 10:00 UNV Patient Own Medication 1 cap DAILY PO 08/07/24 10:00 UNV Patient Own Medication 1 cap BID PO 08/06/24 22:00 Patient Own Medication 1 cap DAILY PO 08/07/24 10:00 Memantine 10 mg DAILY PO 08/07/24 10:00 08/12/24 09:09 10 MG Pantoprazole Sodium 40 mg DAILY IV 08/08/24 10:00 08/12/24 09:08 40 MG Dextrose 50 ml UD PRN IV 08/10/24 13:30 Ceftriaxone Sodium 50 ml @ 100 mls/hr DAILY@09 IV 08/11/24 09:00 08/12/24 09:08 100 MLS/HR Diagnostic Test (Pha) 1 strip Q6HR 08/12/24 12:00 Insulin Human Regular Q6HR SC 08/12/24 12:00 Examination General examination- Not in acute distress, altered,noncommunicating today but at her baseline HEENT: [place], no acute nasal discharge Chest: S1-S2 audible, rate and rhythm regular, no murmur Lung: CTAB, no wheeze or rhonchi Abdomen: Soft slightly distended hypoactive bowel sounds Musculoskeletal: no acute joint swelling or tenderness Lower extremity: no leg edema, soft muscle Neurological: Appears to be nonfocal Psychiatry-- altered, at baseline Skin- no acute rash or purpura laboratory and microbiology Laboratory Tests 08/12/24 09:25 08/10/24 05:20 Test 08/12/24 09:25 Range/Units Serum Glucose 155 H 74-106 mg/dL Microbiology Date/Time Source Procedure Growth Status 08/07/24 08:37 Urine - Catheterized Urine Culture - Final Complete 08/06/24 15:31 Blood Blood Culture - Final NO GROWTH AFTER 5 DAYS OF INCUBATION. Complete Problem List/Assessment/Plan Problem List/Assessment/Plan Hypoxic liver injury --> Liver enzymes trending downward --> likely secondary to underlying DKA/dehydration --> Recommend 1/2 NS 100ml/hr --> Manage the underlying cause --> Hep B and C antibody: Negative --> Liver enzymes are stable Hepatitis A positive --> monitor liver enzymes --> stable liver enzymes Hepatic steatosis Mild pancreatitis --> Lipase : 70--> 77 --> change diet to full liquid diet Diabetic ketoacidosis --> anion gap metabolic acidosis Gap closed now --> Serum sugar 780 --> hgb > 14.0 --> Insulin --> adequate hydration --> Accu checks Hypokalemia--> IMPROVED --> K: 3.3--> 3.6 --> Monitor EKG Lactic acidosis --> Bicarbonate 1 amp/ liter fluid stopped Dehydration--> Improved 1/2 NS 100ml/hr stopped ADONIS secondary to VMN --> adequate hydration --> improved Hypernatremia--> Improved Metabolic encephalopathy --> in the setting of DKA/hypernatremia --> manage the underlying condition Severe protein calorie malnutrition --> BMI of 17.6 --> muscle wasting Dementia at baseline Depression PLAN stable for discharge regular diet and feeding Continue IV antibiotics per primary team Goal of care discussed for more than 35 minute Case and plan discussed with Dr. Knight Thank you for allowing us to participate in the care of this patient. Please call if you have any questions or concerns. Plan discussed with: Other NORMA STEEN RESIDENT Aug 12, 2024 15:37
== END 2024-08-12 16:30 | disposition hospice, home (50) | DRG 871 ==
LOC: ER 07:02 → TELE 13:29 → TELE-CENTR 08-10 15:27 → CENTRAL 08-10 15:33
PROVIDERS: ADMIT Student in an Organized Health Care Education/Training Program; ATTEND Student in an Organized Health Care Education/Training Program
DX: A41.9 Sepsis, unspecified organism (principal); E11.10 Type 2 diabetes mellitus with ketoacidosis without coma; G93.41 Metabolic encephalopathy; E43 Unspecified severe protein-calorie malnutrition; N17.0 Acute kidney failure with tubular necrosis; K76.7 Hepatorenal syndrome; K85.90 Acute pancreatitis without necrosis or infection, unspecified; N39.0 Urinary tract infection, site not specified; E87.0 Hyperosmolality and hypernatremia; S36.119A Unspecified injury of liver, initial encounter; Z68.1 Body mass index [BMI] 19.9 or less, adult; B15.9 Hepatitis A without hepatic coma; E87.6 Hypokalemia; E86.0 Dehydration; F17.200 Nicotine dependence, unspecified, uncomplicated; F32.A Depression, unspecified; G43.909 Migraine, unspecified, not intractable, without status migrainosus; I10 Essential (primary) hypertension; K21.9 Gastro-esophageal reflux disease without esophagitis; R32 Unspecified urinary incontinence; S00.01XA Abrasion of scalp, initial encounter; W06.XXXA Fall from bed, initial encounter; R26.9 Unspecified abnormalities of gait and mobility; R15.9 Full incontinence of feces; R79.89 Other specified abnormal findings of blood chemistry; G30.9 Alzheimer's disease, unspecified; F02.80 Dementia in other diseases classified elsewhere, unspecified severity, without behavioral disturbance, psychotic disturbance, mood disturbance, and anxiety; Y92.003 Bedroom of unspecified non-institutional (private) residence as the place of occurrence of the external cause; Z74.01 Bed confinement status; Z90.49 Acquired absence of other specified parts of digestive tract; Y93.89 Activity, other specified; Y99.8 Other external cause status; Z79.899 Other long term (current) drug therapy; Z81.8 Family history of other mental and behavioral disorders; Z83.3 Family history of diabetes mellitus
CPT/HCPCS: 36415; 36600; 70450; 71045; 72125; 76705; 80048; 80053; 81001; 82010; 82607; 82746; 82805; 82962; 83036; 83605; 83690; 83735; 83930; 84100; 84439; 84443; 84478; 84484; 85007; 85025; 85027; 86705; 86706; 86708; 86803; 87040; 87086; 87088; 87186; 87340; 92507; 92610; 93005; 97110; 97162; 97530; 99291; G0378; J1815; J2185; J2470; J3480